=== PATIENT | male | born 1965 | race Caucasian/White ===

== ENCOUNTER 2017-07-28 11:03 | Inpatient (IN) | payer OTHER ==
[2017-07-28 11:31] VITALS: BMI 20.1
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
[2017-07-28] MEDS ORDERED: hydrOXYzine PAMOATE 25 MG CAPSULE (FP) PO PRN (12:58)
[2017-07-28] MEDS ORDERED: MAGNESIUM HYDROX 2400MG/30ML ORAL SUSPENSION 30 ML CUP PO PRN (12:58)
[2017-07-28] MEDS ORDERED: LOPERAMIDE HCL 2 MG CAPSULE PO PRN (12:58)
[2017-07-28] MEDS ORDERED: guaiFENesin/D-METHORPHAN HB 10 ML UNIT-DOSE CUPS PO PRN (12:58)
[2017-07-28] MEDS ORDERED: P-EPHED 60MG/TRIPROLIDI 2.5MG TABLET PO PRN (12:58)
[2017-07-28] MEDS ORDERED: ACETAMINOPHEN 325 MG TABLET (FP) PO PRN (12:58)
[2017-07-28] MEDS ORDERED: MAGNESIUM CITRATE 300 ML BOTTLE PO PRN (12:58)
[2017-07-28] MEDS ORDERED: MENTHOL/PHENOL 1 EACH UD MM PRN (12:58)
[2017-07-28] MEDS ORDERED: MAG HYDROX/AL HYDROX/SIMETH 30 ML UNIT-DOSE CUP PO PRN (12:58)
[2017-07-28] MEDS ORDERED: IBUPROFEN 400 MG TABLET (FP) PO PRN (12:58)
--- NOTE | 2017-07-28 13:43 | CONSULT ---
[facility] Psychiatric Consult - Data Date of interview: 07/28/17 Admission source: [facility] Identifying data: This is 52 years old male with no psychiatricv hospitalization history intoxicated with: Cocain, Alcohol, Cannabis, Opioids, Methadone and PCP Substance Abuse History: Urine Drug Screen Results: THC-Marijuana, OPI-Opiates, MTD-Methadone. Smoking history: Never smoked. Aproximately how many cigarettes per day: 5. Cigars Per Day: 0. Hx Chewing Tobacco Use: No. Initiated information on smoking cessation: Yes. 'Breaking Loose' booklet given : 07/28/17. - Substance & Tx. History. Hx Alcohol Use: Yes. Hx Substance Use : Yes. Substance Use Type: Alcohol, Cocaine, Marijuana. Hx Substance Use Treatment: Yes ([facility] 01/24 ) Medical History: Syncope history Psychiatric History: Patioent reports history of anxiety, reports no medications taking prior to admission Physical/Sexual Abuse/Trauma History: Denies Additional Comment: Urine Drug Screen Results: THC-Marijuana, OPI-Opiates, MTD- Methadone Mental Status Exam - Mental Status Exam Alert and Oriented to: Person Cognitive Function: Fair Patient Appearance: Well Groomed Mood: Apprehensive Affect: Mood Congruent Patient Behavior: Cooperative Speech Pattern: Appropriate Voice Loudness: Normal Thought Process: Goal Oriented Thought Disorder: Being Controlled Hallucinations: Denies Suicidal Ideation: Denies Homicidal Ideation: Denies Insight/Judgement: Fair Sleep: Difficulty falling asleep Appetite: Weight loss Muscle strength/Tone: Normal Gait/Station: Normal Additional Comments: Observation. Detox Unit Care Protocol Psychiatric Findings - Problem List ([place] 1, 2,3) (1) Cannabis dependence Current Visit: Yes Status: Acute (2) Cocaine dependence Current Visit: Yes Status: Acute (3) Nicotine dependence Current Visit: Yes Status: Acute (4) Opioid dependence with withdrawal Current Visit: Yes Status: Acute (5) PCP (phencyclidine) abuse Current Visit: Yes Status: Acute (6) Drug-induced mood disorder Current Visit: Yes Status: Acute - Initial Treatment Plan Initial Treatment Plan: Observation. Detox Unit Care Protocol
[2017-07-28] MEDS ORDERED: METHADONE HCL 10 MG TABLET (FOR DETOX USE ONLY) PO ONE ×2 (14:31→23:00)
--- NOTE | 2017-07-28 14:58 | EKG ---
Test Reason : Blood Pressure : / mmHG Vent. Rate : 074 BPM Atrial Rate : 074 BPM P-R Int : 146 ms QRS Dur : 080 ms QT Int : 370 ms P-R-T Axes : 082 070 065 degrees QTc Int : 410 ms NORMAL SINUS RHYTHM NORMAL ECG NO PREVIOUS ECGS AVAILABLE Confirmed by MANUELITO ENGLE, DICKSON ([id number]) on 07/28/2017 2:57:40 PM Referred By: Confirmed By:DICKSON BILLINGS MD
[2017-07-28 15:01] LABS: HIV 1 & 2 AB NEGATIVE; HIV 1 AGp24 NEGATIVE
[2017-07-28 18:12] LABS: URINE APPEARANCE CLOUDY; URINE BILIRUBIN NEGATIVE (NEGATIVE); URINE BLOOD NEGATIVE (NEGATIVE); URINE COLOR AMBER; URINE GLUCOSE (UA) NEGATIVE (NEGATIVE); URINE KETONE NEGATIVE (NEGATIVE); URINE NITRITE NEGATIVE (NEGATIVE); URINE PROTEIN NEGATIVE (NEGATIVE); URINE UROBILINOGEN NEGATIVE mg/dL (0.2-1.0)
[2017-07-28 21:02] LABS: URINE LEUK ESTERASE TRACE (NEGATIVE)
[2017-07-28 21:37] LABS: URINE BACTERIA FEW /hpf (NEGATIVE); URINE WBC 20-40 (3-5)
[2017-07-28 21:38] LABS: CALCIUM OXALATE CRYSTALS MODERATE /hpf (NONE SEEN)
[2017-07-28] MEDS: THIAMINE HCL 100 MG TABLET (FP) PO SCH (22:48)
[2017-07-28] MEDS: diazePAM 5 MG TABLET PO PRN (22:49)
[2017-07-29 09:43] LABS: MCHC 33.7 g/dl (32.0-35.9); MEAN CELL VOLUME 97.8 fl (80-96); MEAN PLT VOLUME 8.9 fl (7.5-11.1); PLATELET COUNT 287 K/MM3 (134-434); RDW 13.6 % (11.9-15.9); WHITE BLOOD COUNT 6.6 K/mm3 (4.0-10.0)
[2017-07-29] MEDS ORDERED: METHADONE HCL 10 MG TABLET (FOR DETOX USE ONLY) PO ONE (10:00)
[2017-07-29] MEDS: PRENATAL VITAMINS W/ FOLIC ACID TABLET (FP) PO SCH (10:21)
[2017-07-29 10:48] LABS: ALBUMIN 3.5 g/dl (3.4-5.0); ALK PHOS 114 U/L (45-117); ANION GAP 7 (8-16); BILIRUBIN,TOTAL 0.3 mg/dL (0.2-1.0); CALCIUM 8.7 mg/dL (8.5-10.1); CO2 29 mmol/L (21-32); CREATININE 0.8 mg/dL (0.7-1.3); GLUCOSE,RANDOM 127 mg/dL (74-106); SGOT/AST 23 U/L (15-37); SGPT/ALT 33 U/L (12-78); TOT PROT 6.4 g/dl (6.4-8.2)
--- NOTE | 2017-07-29 12:28 | PN ---
BHS COWS - Scale Resting Pulse: 0= [place] 80 or Below Sweatin=Flushed/Facial Moisture Restless Observation: 1= Difficult to Sit Still Pupil Size: 0= Normal to Room Light Bone or Joint Aches: 1= Mild Discomfort Runny Nose/ Eye Tearin= Runny Nose/Eyes GI Upset > 30mins: 2= Nausea/Diarrhea Tremor Observation of Outstretched Hands: 2= Slight Tremor Visible Yawning Observation: 1= 1-2x During Session Anxiety or Irritability: 2=Irritable/Anxious Goose Flesh Skin: 0=Smooth Skin COWS Score: 13 BHS Progress Note (SOAP) Subjective: Sweating,body aches,anxiety,interrupted sleep. Objective: 07/29/17 12:27 Vital Signs - 8 hr 07/29/17 07/29/17 06:27 11:11 Temperature 97.9 F 97.5 F L Pulse Rate 54 L 68 Respiratory 16 16 Rate Blood Pressure 117/70 111/48 Laboratory Tests 07/28/17 07/28/17 07/29/17 13:40 14:50 06:00 WBC 6.6 RBC 3.49 L Hgb 11.5 L Hct 34.2 L MCV 97.8 H MCH 33.0 MCHC 33.7 RDW 13.6 Plt Count 287 MPV 8.9 Sodium Potassium Chloride Carbon Dioxide Anion Gap BUN Creatinine Creat Clearance w eGFR Random Glucose Calcium Total Bilirubin AST ALT Alkaline Phosphatase Total Protein Albumin Urine Color Stacey Urine Appearance Cloudy Urine pH 6.0 Ur Specific [place] 1.015 Urine Protein Negative Urine Glucose (UA) Negative Urine Ketones Negative Urine Blood Negative Urine Nitrite Negative Urine Bilirubin Negative Urine Urobilinogen Negative Ur Leukocyte Esterase Trace H Urine RBC 10-20 Urine WBC 20-40 Calcium Oxalate Crystal Moderate Urine Bacteria Few RPR Titer HIV 1&2 Antibody Screen Negative HIV P24 Antigen Negative 07/29/17 07/29/17 06:00 06:00 WBC RBC Hgb Hct MCV MCH MCHC RDW Plt Count MPV Sodium 141 Potassium 4.1 Chloride 105 Carbon Dioxide 29 Anion Gap 7 L BUN 14 Creatinine 0.8 Creat Clearance w eGFR > 60 Random Glucose 127 H Calcium 8.7 Total Bilirubin 0.3 AST 23 ALT 33 Alkaline Phosphatase 114 Total Protein 6.4 Albumin 3.5 Urine Color Urine Appearance Urine pH Ur Specific [place] Urine Protein Urine Glucose (UA) Urine Ketones Urine Blood Urine Nitrite Urine Bilirubin Urine Urobilinogen Ur Leukocyte Esterase Urine RBC Urine WBC Calcium Oxalate Crystal Urine Bacteria RPR Titer Nonreactive HIV 1&2 Antibody Screen HIV P24 Antigen labs noted Assessment: 07/29/17 12:28 Withdrawal sx. Plan: Continue detox
[2017-07-29 13:40] LABS: SICKLE CELL SCREEN NEGATIVE (NEGATIVE)
[2017-07-29] MEDS: diazePAM 5 MG TABLET PO PRN (22:39)
[2017-07-29] MEDS: THIAMINE HCL 100 MG TABLET (FP) PO SCH (22:39)
[2017-07-30 09:06] LABS: URINE APPEARANCE CLEAR; URINE BILIRUBIN NEGATIVE (NEGATIVE); URINE BLOOD NEGATIVE (NEGATIVE); URINE COLOR STRAW; URINE GLUCOSE (UA) NEGATIVE (NEGATIVE); URINE KETONE NEGATIVE (NEGATIVE); URINE NITRITE NEGATIVE (NEGATIVE); URINE PROTEIN NEGATIVE (NEGATIVE); URINE UROBILINOGEN NEGATIVE mg/dL (0.2-1.0)
[2017-07-30] MEDS ORDERED: METHADONE HCL 5 MG TABLET (FOR DETOX USE ONLY) PO ONE (10:00)
[2017-07-30] MEDS: PRENATAL VITAMINS W/ FOLIC ACID TABLET (FP) PO SCH (11:00)
[2017-07-30] MEDS: diazePAM 5 MG TABLET PO PRN ×2 (11:01→22:14)
[2017-07-30 11:25] LABS: URINE LEUK ESTERASE TRACE (NEGATIVE)
[2017-07-30] MEDS: THIAMINE HCL 100 MG TABLET (FP) PO SCH (22:13)
[2017-07-30] MEDS: diphenhydrAMINE HCL 50 MG CAPSULE PO PRN (22:15)
[2017-07-31] MEDS ORDERED: METHADONE HCL 5 MG TABLET (FOR DETOX USE ONLY) PO ONE (10:00)
[2017-07-31] MEDS: PRENATAL VITAMINS W/ FOLIC ACID TABLET (FP) PO SCH (10:12)
[2017-07-31] MEDS: diazePAM 5 MG TABLET PO PRN (10:12)
--- NOTE | 2017-07-31 15:00 | PN ---
S COWS - Scale Resting Pulse: 0= [place] 80 or Below Sweatin=Flushed/Facial Moisture Restless Observation: 3= Extraneous Movement Pupil Size: 0= Normal to Room Light Bone or Joint Aches: 2= Severe Diffuse Aches Runny Nose/ Eye Tearin= Runny Nose/Eyes GI Upset > 30mins: 3= Vomiting/Diarrhea Tremor Observation of Outstretched Hands: 2= Slight Tremor Visible Yawning Observation: 0= None Anxiety or Irritability: 2=Irritable/Anxious Goose Flesh Skin: 0=Smooth Skin COWS Score: 16 BHS Progress Note (SOAP) Subjective: Tremor, chills, sweating, headache Objective: 07/31/17 14:57 Last Vital Signs Temp Pulse Resp BP Pulse Ox 97.5 F L 80 18 91/63 07/31/17 13:08 07/31/17 13:08 07/31/17 13:08 07/31/17 13:08 Noted with hypotension (b/p 91/63) Laboratory Tests 07/28/17 07/28/17 07/29/17 13:40 14:50 06:00 WBC 6.6 RBC 3.49 L Hgb 11.5 L Hct 34.2 L MCV 97.8 H MCH 33.0 MCHC 33.7 RDW 13.6 Plt Count 287 MPV 8.9 Sickle Cell Screen Negative Sodium Potassium Chloride Carbon Dioxide Anion Gap BUN Creatinine Creat Clearance w eGFR POC Glucometer Random Glucose Calcium Total Bilirubin AST ALT Alkaline Phosphatase Total Protein Albumin Urine Color Stacey Urine Appearance Cloudy Urine pH 6.0 Ur Specific [place] 1.015 Urine Protein Negative Urine Glucose (UA) Negative Urine Ketones Negative Urine Blood Negative Urine Nitrite Negative Urine Bilirubin Negative Urine Urobilinogen Negative Ur Leukocyte Esterase Trace H Urine RBC 10-20 Urine WBC 20-40 Calcium Oxalate Crystal Moderate Urine Bacteria Few RPR Titer HIV 1&2 Antibody Screen Negative HIV P24 Antigen Negative 07/29/17 07/29/17 07/30/17 06:00 06:00 05:52 WBC RBC Hgb Hct MCV MCH MCHC RDW Plt Count MPV Sickle Cell Screen Sodium 141 Potassium 4.1 Chloride 105 Carbon Dioxide 29 Anion Gap 7 L BUN 14 Creatinine 0.8 Creat Clearance w eGFR > 60 POC Glucometer 105 Random Glucose 127 H Calcium 8.7 Total Bilirubin 0.3 AST 23 ALT 33 Alkaline Phosphatase 114 Total Protein 6.4 Albumin 3.5 Urine Color Urine Appearance Urine pH Ur Specific [place] Urine Protein Urine Glucose (UA) Urine Ketones Urine Blood Urine Nitrite Urine Bilirubin Urine Urobilinogen Ur Leukocyte Esterase Urine RBC Urine WBC Calcium Oxalate Crystal Urine Bacteria RPR Titer Nonreactive HIV 1&2 Antibody Screen HIV P24 Antigen 07/30/17 07:50 WBC RBC Hgb Hct MCV MCH MCHC RDW Plt Count MPV Sickle Cell Screen Sodium Potassium Chloride Carbon Dioxide Anion Gap BUN Creatinine Creat Clearance w eGFR POC Glucometer Random Glucose Calcium Total Bilirubin AST ALT Alkaline Phosphatase Total Protein Albumin Urine Color Straw Urine Appearance Clear Urine pH 6.0 Ur Specific [place] 1.015 Urine Protein Negative Urine Glucose (UA) Negative Urine Ketones Negative Urine Blood Negative Urine Nitrite Negative Urine Bilirubin Negative Urine Urobilinogen Negative Ur Leukocyte Esterase Trace H Urine RBC Urine WBC Calcium Oxalate Crystal Urine Bacteria RPR Titer HIV 1&2 Antibody Screen HIV P24 Antigen Labs noted Assessment: 07/31/17 14:58 Withdrawal symptoms Noted with hypotension Plan: Continue detox Hypotension: asymptomatic, encouraged to drink lots of water (water pitcher ordered)
[2017-07-31] MEDS: diphenhydrAMINE HCL 50 MG CAPSULE PO PRN (22:07)
[2017-07-31] MEDS: THIAMINE HCL 100 MG TABLET (FP) PO SCH (22:07)
[2017-08-01] MEDS ORDERED: METHADONE HCL 10 MG TABLET (FOR DETOX USE ONLY) PO ONE (10:00)
[2017-08-01] MEDS: PRENATAL VITAMINS W/ FOLIC ACID TABLET (FP) PO SCH (10:12)
--- NOTE | 2017-08-01 11:22 | PN ---
BHS Progress Note (SOAP) Subjective: DECREASED ANXIETY,SWEATS,TREMORS, ALERT O X 3. PT DESIRES TO GO TO REHAB AFTER DETOX. Objective: 08/01/17 11:21 Vital Signs Temperature 99.7 F H 08/01/17 10:21 Pulse Rate 71 08/01/17 10:21 Respiratory Rate 20 08/01/17 10:21 Blood Pressure 128/72 08/01/17 10:21 O2 Sat by Pulse Oximetry (%) Laboratory Last Values WBC 6.6 K/mm3 (4.0-10.0) 07/29/17 06:00 RBC 3.49 M/mm3 (4.00-5.60) L 07/29/17 06:00 Hgb 11.5 GM/dL (11.7-16.9) L 07/29/17 06:00 Hct 34.2 % (35.4-49) L 07/29/17 06:00 MCV 97.8 fl (80-96) H 07/29/17 06:00 MCH 33.0 pg (25.7-33.7) 07/29/17 06:00 MCHC 33.7 g/dl (32.0-35.9) 07/29/17 06:00 RDW 13.6 % (11.9-15.9) 07/29/17 06:00 Plt Count 287 K/MM3 (134-434) 07/29/17 06:00 MPV 8.9 fl (7.5-11.1) 07/29/17 06:00 Sickle Cell Screen Negative (NEGATIVE) 07/29/17 06:00 Sodium 141 mmol/L (136-145) 07/29/17 06:00 Potassium 4.1 mmol/L (3.5-5.1) 07/29/17 06:00 Chloride 105 mmol/L (98-107) 07/29/17 06:00 Carbon Dioxide 29 mmol/L (21-32) 07/29/17 06:00 Anion Gap 7 (8-16) L 07/29/17 06:00 BUN 14 mg/dL (7-18) 07/29/17 06:00 Creatinine 0.8 mg/dL (0.7-1.3) 07/29/17 06:00 Creat Clearance w eGFR > 60 (>60) 07/29/17 06:00 POC Glucometer 105 UNITS (()) 07/30/17 05:52 Random Glucose 127 mg/dL (74-106) H 07/29/17 06:00 Calcium 8.7 mg/dL (8.5-10.1) 07/29/17 06:00 Total Bilirubin 0.3 mg/dL (0.2-1.0) 07/29/17 06:00 AST 23 U/L (15-37) 07/29/17 06:00 ALT 33 U/L (12-78) 07/29/17 06:00 Alkaline Phosphatase 114 U/L (45-117) 07/29/17 06:00 Total Protein 6.4 g/dl (6.4-8.2) 07/29/17 06:00 Albumin 3.5 g/dl (3.4-5.0) 07/29/17 06:00 Urine Color Straw 07/30/17 07:50 Urine Appearance Clear 07/30/17 07:50 Urine pH 6.0 (5.0-8.0) 07/30/17 07:50 Ur Specific [place] 1.015 (1.005-1.025) 07/30/17 07:50 Urine Protein Negative (NEGATIVE) 07/30/17 07:50 Urine Glucose (UA) Negative (NEGATIVE) 07/30/17 07:50 Urine Ketones Negative (NEGATIVE) 07/30/17 07:50 Urine Blood Negative (NEGATIVE) 07/30/17 07:50 Urine Nitrite Negative (NEGATIVE) 07/30/17 07:50 Urine Bilirubin Negative (NEGATIVE) 07/30/17 07:50 Urine Urobilinogen Negative mg/dL (0.2-1.0) 07/30/17 07:50 Ur Leukocyte Esterase Trace (NEGATIVE) H 07/30/17 07:50 Urine RBC 10-20 /hpf (0-3) 07/28/17 14:50 Urine WBC 20-40 (3-5) 07/28/17 14:50 Calcium Oxalate Crystal Moderate /hpf (NONE SEEN) 07/28/17 14:50 Urine Bacteria Few /hpf (NEGATIVE) 07/28/17 14:50 RPR Titer Nonreactive (NONREACTIVE) 07/29/17 06:00 HIV 1&2 Antibody Screen Negative 07/28/17 13:40 HIV P24 Antigen Negative 07/28/17 13:40 Assessment: 08/01/17 11:23 DECREASED WITHDRAWAL SX Plan: CONTINUE DETOX UC TODAY
[2017-08-01] MEDS ORDERED: FERROUS SO4 325 MG TABLET (FP) PO SCH (11:45)
[2017-08-01] MEDS: diphenhydrAMINE HCL 50 MG CAPSULE PO PRN (22:13)
[2017-08-01] MEDS: THIAMINE HCL 100 MG TABLET (FP) PO SCH (22:13)
[2017-08-02] MEDS ORDERED: METHADONE HCL 5 MG TABLET (FOR DETOX USE ONLY) PO ONE (06:00)
[2017-08-02 09:32] VITALS: BP 123/76; PULSE 82; TEMP 99.1
[2017-08-02] MEDS: PRENATAL VITAMINS W/ FOLIC ACID TABLET (FP) PO SCH (10:15)
--- NOTE | 2017-08-02 10:31 | DS ---
[facility] Detox Discharge Summary Admission Date: 07/28/17 Discharge Date: 08/02/17 - History Present History: Opioid Dependence Additional Comments: DETOX COMPLETED.ALERT O X 3. NAD. PT IS GOING TO REHAB TODAY. PT WILL FOLLOW UP WITH PCP AT [facility] FOR [facility]ICAL MANAGEMENT NEEDED. Pertinent Past History: HX FRACTURE OF ZYGOMATIC ARCH- TREATED 6 WEEKS AGO PER H/P - Physical Exam Results Vital Signs: Vital Signs Temperature 99.1 F 08/02/17 09:32 Pulse Rate 82 08/02/17 09:32 Respiratory Rate 18 08/02/17 09:32 Blood Pressure 123/76 08/02/17 09:32 O2 Sat by Pulse Oximetry (%) Pertinent Admission Physical Exam Findings: WITHDRAWAL SX Laboratory Last Values WBC 6.6 K/mm3 (4.0-10.0) 07/29/17 06:00 RBC 3.49 M/mm3 (4.00-5.60) L 07/29/17 06:00 Hgb 11.5 GM/dL (11.7-16.9) L 07/29/17 06:00 Hct 34.2 % (35.4-49) L 07/29/17 06:00 MCV 97.8 fl (80-96) H 07/29/17 06:00 MCH 33.0 pg (25.7-33.7) 07/29/17 06:00 MCHC 33.7 g/dl (32.0-35.9) 07/29/17 06:00 RDW 13.6 % (11.9-15.9) 07/29/17 06:00 Plt Count 287 K/MM3 (134-434) 07/29/17 06:00 MPV 8.9 fl (7.5-11.1) 07/29/17 06:00 Sickle Cell Screen Negative (NEGATIVE) 07/29/17 06:00 Sodium 141 mmol/L (136-145) 07/29/17 06:00 Potassium 4.1 mmol/L (3.5-5.1) 07/29/17 06:00 Chloride 105 mmol/L (98-107) 07/29/17 06:00 Carbon Dioxide 29 mmol/L (21-32) 07/29/17 06:00 Anion Gap 7 (8-16) L 07/29/17 06:00 BUN 14 mg/dL (7-18) 07/29/17 06:00 Creatinine 0.8 mg/dL (0.7-1.3) 07/29/17 06:00 Creat Clearance w eGFR > 60 (>60) 07/29/17 06:00 POC Glucometer 101 UNITS (()) 08/02/17 06:34 Random Glucose 127 mg/dL (74-106) H 07/29/17 06:00 Calcium 8.7 mg/dL (8.5-10.1) 07/29/17 06:00 Total Bilirubin 0.3 mg/dL (0.2-1.0) 07/29/17 06:00 AST 23 U/L (15-37) 07/29/17 06:00 ALT 33 U/L (12-78) 07/29/17 06:00 Alkaline Phosphatase 114 U/L (45-117) 07/29/17 06:00 Total Protein 6.4 g/dl (6.4-8.2) 07/29/17 06:00 Albumin 3.5 g/dl (3.4-5.0) 07/29/17 06:00 Urine Color Straw 07/30/17 07:50 Urine Appearance Clear 07/30/17 07:50 Urine pH 6.0 (5.0-8.0) 07/30/17 07:50 Ur Specific [place] 1.015 (1.005-1.025) 07/30/17 07:50 Urine Protein Negative (NEGATIVE) 07/30/17 07:50 Urine Glucose (UA) Negative (NEGATIVE) 07/30/17 07:50 Urine Ketones Negative (NEGATIVE) 07/30/17 07:50 Urine Blood Negative (NEGATIVE) 07/30/17 07:50 Urine Nitrite Negative (NEGATIVE) 07/30/17 07:50 Urine Bilirubin Negative (NEGATIVE) 07/30/17 07:50 Urine Urobilinogen Negative mg/dL (0.2-1.0) 07/30/17 07:50 Ur Leukocyte Esterase Trace (NEGATIVE) H 07/30/17 07:50 Urine RBC 10-20 /hpf (0-3) 07/28/17 14:50 Urine WBC 20-40 (3-5) 07/28/17 14:50 Calcium Oxalate Crystal Moderate /hpf (NONE SEEN) 07/28/17 14:50 Urine Bacteria Few /hpf (NEGATIVE) 07/28/17 14:50 RPR Titer Nonreactive (NONREACTIVE) 07/29/17 06:00 HIV 1&2 Antibody Screen Negative 07/28/17 13:40 HIV P24 Antigen Negative 07/28/17 13:40 Microbiology 08/01/17 11:50 Urine - Urine Clean Catch Urine Culture - Final NO GROWTH OBTAINED - Treatment Hospital Course: Detox Protocol Followed, Detoxed Safely, Responded well, Discharged Condition Good, Rehab Referral Accepted Patient has Accepted a Rehab Referral to: [address] [place] [address] - Medication Discharge Medications: Ambulatory Orders Unobtainable [Unobtainable] 07/28/17 - Diagnosis (1) Nicotine dependence Status: Acute Qualifiers: Nicotine product type: cigarettes Substance use status: in withdrawal Qualified Code(s): F17.213 - Nicotine dependence, cigarettes, with withdrawal; F17.213 - Nicotine dependence, cigarettes, with withdrawal (2) Opioid dependence with withdrawal Status: Acute (3) Cannabis dependence Status: Acute (4) Cocaine dependence Status: Acute Qualifiers: Substance use status: uncomplicated Qualified Code(s): F14.20 - Cocaine dependence, uncomplicated; F14.20 - Cocaine dependence, uncomplicated; F14.20 - Cocaine dependence, uncomplicated (5) PCP (phencyclidine) abuse Status: Acute - AMA Did Patient Leave Against Medical Advice: No
== END 2017-08-02 12:25 | disposition other institution (70) | DRG 773 ==
LOC: YASAS 11:03 → Y3N 13:04
PROVIDERS: ADMIT Internal Medicine; ATTEND Internal Medicine
PROC: HZ2ZZZZ Detoxification Services for Substance Abuse Treatment (ICD-10-PCS; principal; 2017-07-28)
DX: F11.23 Opioid dependence with withdrawal (principal); F14.20 Cocaine dependence, uncomplicated; F12.20 Cannabis dependence, uncomplicated; F16.10 Hallucinogen abuse, uncomplicated; F17.213 Nicotine dependence, cigarettes, with withdrawal; F19.24 Other psychoactive substance dependence with psychoactive substance-induced mood disorder; I95.9 Hypotension, unspecified; Z91.048 Other nonmedicinal substance allergy status; Z87.898 Personal history of other specified conditions; Z86.79 Personal history of other diseases of the circulatory system
CPT/HCPCS: 36415; 80053; 81003; 81015; 85027; 85660; 86593; 87086; 87389; 93005; 93010

== ENCOUNTER 2017-08-02 12:39 | Inpatient (IN) | payer OTHER ==
[2017-08-02] MEDS ORDERED: MENTHOL/PHENOL 1 EACH UD MM PRN (14:35)
[2017-08-02] MEDS ORDERED: MAGNESIUM HYDROX 2400MG/30ML ORAL SUSPENSION 30 ML CUP PO PRN (14:35)
[2017-08-02] MEDS ORDERED: hydrOXYzine PAMOATE 50 MG CAPSULE (FP) PO PRN (14:35)
[2017-08-02] MEDS ORDERED: MAGNESIUM CITRATE 300 ML BOTTLE PO PRN (14:35)
[2017-08-02] MEDS ORDERED: IBUPROFEN 400 MG TABLET (FP) PO PRN (14:35)
[2017-08-02] MEDS ORDERED: LOPERAMIDE HCL 2 MG CAPSULE PO PRN (14:35)
[2017-08-02] MEDS ORDERED: MAG HYDROX/AL HYDROX/SIMETH 30 ML UNIT-DOSE CUP PO PRN (14:35)
[2017-08-02] MEDS ORDERED: diphenhydrAMINE HCL 50 MG CAPSULE PO PRN (14:35)
[2017-08-02] MEDS ORDERED: ACETAMINOPHEN 325 MG TABLET (FP) PO PRN (14:35)
[2017-08-02] MEDS ORDERED: guaiFENesin/D-METHORPHAN HB 10 ML UNIT-DOSE CUPS PO PRN (14:35)
[2017-08-02] MEDS ORDERED: P-EPHED 60MG/TRIPROLIDI 2.5MG TABLET PO PRN (14:35)
--- NOTE | 2017-08-02 15:21 | HP ---
[facility] Rehab Assess/Revision - Admission History Admitted to Rehab from: [facility] Date of Admission to Rehab: 08/02/17 - Vital signs Vital Signs: Vital Signs Period Temp Pulse Resp BP Sys/Garcia Pulse Ox Last 24 Hr 74 20 123/97 - Findings Detox History & Physical reviewed: Yes Concur with findings: Yes Comments/Additional Findings: PT COMPLETED DETOX TODAY AND WENT TO REH[facility] IN STABLE CONDITION.
[2017-08-02] MEDS: THIAMINE HCL 100 MG TABLET (FP) PO SCH (21:28)
[2017-08-03 09:53] LABS: EOSINOPHIL 2.5 % (0-4.5); MCH 32.5 pg (25.7-33.7); MCHC 33.4 g/dl (32.0-35.9); MEAN CELL VOLUME 97.4 fl (80-96); MEAN PLT VOLUME 8.6 fl (7.5-11.1); NEUTROPHILS 61.2 % (42.8-82.8); PLATELET COUNT 315 K/MM3 (134-434); RDW 14.2 % (11.9-15.9); WHITE BLOOD COUNT 8.6 K/mm3 (4.0-10.0)
[2017-08-03] MEDS: PRENATAL VITAMINS W/ FOLIC ACID TABLET (FP) PO SCH (10:23)
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
[2017-08-03] MEDS ORDERED: FLU VACCINE QUAD 60 MCG/0.5 ML (MDV 17-18) IM ONE (12:00)
[2017-08-03] MEDS: THIAMINE HCL 100 MG TABLET (FP) PO SCH (21:41)
[2017-08-03] MEDS ORDERED: MIRTAZAPINE 15 MG TABLET (FP) PO SCH (22:00)
[2017-08-04 07:10] VITALS: BP 117/67; PULSE 72; TEMP 98.2
[2017-08-04] MEDS: PRENATAL VITAMINS W/ FOLIC ACID TABLET (FP) PO SCH (10:14)
--- NOTE | 2017-08-04 11:57 | PN ---
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
== END 2017-08-04 10:50 | disposition left against medical advice (07) | DRG 770 ==
LOC: YASAS 12:39 → Y5N 12:40
PROVIDERS: ADMIT Psychiatry & Neurology Psychiatry; ATTEND Psychiatry & Neurology Psychiatry
PROC: HZ42ZZZ Group Counseling for Substance Abuse Treatment, Cognitive-Behavioral (ICD-10-PCS; principal; 2017-08-02)
DX: F11.20 Opioid dependence, uncomplicated (principal); F10.20 Alcohol dependence, uncomplicated; F14.20 Cocaine dependence, uncomplicated; F12.20 Cannabis dependence, uncomplicated; F16.10 Hallucinogen abuse, uncomplicated; F17.213 Nicotine dependence, cigarettes, with withdrawal; F19.24 Other psychoactive substance dependence with psychoactive substance-induced mood disorder; F43.10 Post-traumatic stress disorder, unspecified
CPT/HCPCS: 36415; 85025; 90688; G0008

== ENCOUNTER 2018-07-10 16:10 | Inpatient (IN) | payer OTHER ==
[2018-07-10 18:02] VITALS: BMI 20.1
--- NOTE | 2018-07-10 20:49 | HP ---
COWS - Scale Resting Pulse: 0= [place] 80 or Below Sweatin= Chills/Flushing Restless Observation: 5= Unable to Sit Still Pupil Size: 1= Pupils >than Normal Bone or Joint Aches: 4=Acute Joint/Muscle Pain Runny Nose/ Eye Tearin= Nasal Congestion GI Upset > 30mins: 0= None Tremor Observation: 1= Tremor Spencer, Not Seen Yawning Observation: 1= 1-2x During Session Anxiety or Irritability: 4=Extreme Anxiety Goose Flesh Skin: 0=Smooth Skin COWS Score: 18 CIWA Score - CIWA Score Nausea/Vomitin-No Nausea/No Vomiting Muscle Tremors: 1-None Visible, but Spencer Anxiety: 4-Mod. Anxious/Guarded Agitation: 4-Moderately Restless Paroxysmal Sweats: 3 Orientation: 0-Oriented Tacttile Disturbances: 0-None Auditory Disturbances: 2-Mild Harshness/Frighten Visual Disturbances: 2-Mild Sensitivity Headache: 3-Moderate CIWA-Ar Total Score: 19 Admission [facility] Chief Complaint: SEEKING DETOX FOR C/O WITHDRAWAL SX'S AND HEROIN AND ETOH DEPENDENCE. Allergies/Adverse Reactions: Allergies Allergy/AdvReac Type Severity Reaction Status Date / Time tomato Allergy Severe Verified 07/10/18 19:15 No Known Drug Allergies Allergy Verified 07/10/18 19:15 History of Present Illness: 53 Y.O. MALE WITH HEROIN AND ALCOHOL DEPENDENCE HERE FOR DETOX. CLIENT IS KNOWN TO THIS PROGRAM. LAST HERE 07/2017 WHERE HE COMPLETED DETOX AND ATTEMPTED REHAB. HE AMA AFTER 2 DAYS FOR UNKNOWN REASONS. HE IS SELF REFERRED. HE REPORTS FALLING A FEW WEEKS AGO SUSTAINING A LACERATION TO HIS HEAD THAT REQUIRED SUTURES AND A HOSPITAL STAY AT [place]. HE REPORTS HE WAS THERE FOR ABOUT FOUR DAYS BUT NOT SURE. HIS SUTURES HAS SINCE BEEN REMOVED. HE CURRENTLY HAS A HEALING LACERATION TO THE LEFT SIDE OF HIS SCALP APPROX 15 CM. AND ALSO A 7 CM HEALING LAC TO HIS OCCIPITAL. HE REPORTS DRINKING APPROX 2 PINTS DAILY. DENIES ANY SIGNIFICANT PERIOD OF CLEAN TIME. DENIES HX/O SEIZURES, BLACKOUTS, PAST /PRESENT SI/HI,. HE DOES REPORT HX/O DRUG OVERDOSE X2 AND DT'S. DENIES PMHX BUT DOES REPORTS A PSYCH HX/ O DEPRESSION, ANXIETY AND PTSD. Exam Limitations: No Limitations - Ebola screening Have you traveled outside of the country in the last 21 days: No (N) Have you had contact with anyone from an Ebola affected area: No Have you been sick,other than usual withdrawal symptoms: No Do you have a fever: No - Review of Systems Constitutional: Chills, Loss of Appetite, Malaise, Night Sweats, Changes in sleep, Unintentional Wgt. Loss EENT: reports: Nose Congestion Respiratory: reports: No Symptoms reported Cardiac: reports: No Symptoms Reported GI: reports: Poor Appetite : reports: No Symptoms Reported Musculoskeletal: reports: Back Pain Integumentary: reports: No Symptoms Reported Neuro: reports: No Symptoms reported Endocrine: reports: No Symptoms Reported Hematology: reports: No Symptoms Reported Psychiatric: reports: Anxious, Depressed Other Systems: Reviewed and Negative Patient History - Patient Medical History Hx Anemia: No Hx Asthma: No Hx Chronic Obstructive Pulmonary Disease (COPD): No Hx Cancer: No Hx Cardiac Disorders: No Hx Congestive Heart Failure: No Hx Hypertension: No Hx Hypercholesterolemia: No Hx Pacemaker: No HX Cerebrovascular Accident: No Hx Seizures: No Hx Dementia: No Hx Diabetes: No Hx Gastrointestinal Disorders: No Hx Liver Disease: No Hx Genitourinary Disorders: No Hx Sexually Transmitted Disorders: No Hx Renal Disease (ESRD): No Hx Thyroid Disease: No Hx Human Immunodeficiency Virus (HIV): No Hx Hepatitis C: No Hx Depression: Yes Hx Suicide Attempt: No Hx Bipolar Disorder: No Hx Schizophrenia: No Other Medical History: ANXIETY/PTSD - Patient Surgical History Past Surgical History: No Hx Neurologic Surgery: No Hx Cataract Extraction: No Hx Cardiac Surgery: No Hx Lung Surgery: No Hx Breast Surgery: No Hx Breast Biopsy: No Hx Abdominal Surgery: No Hx Appendectomy: No Hx Cholecystectomy: No Hx Genitourinary Surgery: No Hx Section: No Hx Orthopedic Surgery: No Other Surgical History: RENAL CALCULI Anesthesia Reaction: No - PPD History Previous Implant?: Yes Documented Results: Negative w/proof Implanted On Prior R Admission?: Yes Date: 07/30/17 Results: 0mm PPD to be Administered?: No - Smoking Cessation Smoking history: Current every day smoker Have you smoked in the past 12 months: Yes Aproximately how many cigarettes per day: 10 Cigars Per Day: 0 Hx Chewing Tobacco Use: No Initiated information on smoking cessation: Yes 'Breaking Loose' booklet given: 07/10/18 - Substance & Tx. History Hx Alcohol Use: Yes Hx Substance Use: Yes Substance Use Type: Alcohol, Heroin, Marijuana Hx Substance Use Treatment: Yes ([facility]) - Substances Abused Alcohol Route: Oral Frequency: Daily Amount used: LIQUOR- 2 PINTS, Age of first use: 13 Date of Last Use: 07/07/18 Heroin Route: Inhalation Frequency: Daily Amount used: 10 BAGS Age of first use: 13 Date of Last Use: 07/07/18 Marijuana/Hashish Route: Smoking Frequency: Daily Amount used: $40 WORTH Age of first use: 13 Date of Last Use: 07/07/18 Family Disease History - Family Disease History Family Disease History: Other: Father (ALCOHOL,DSA,), Mother (ALCOHOL, DSA) Admission Physical Exam S - Vital Signs Vital Signs: Vital Signs - 24 hr 07/10/18 18:01 Temperature 98.6 F Pulse Rate 69 Respiratory 18 Rate Blood Pressure 115/56 L - Physical General Appearance: Yes: Appropriately Dressed, Thin, Tremorous (felt), Sweating (FLUSHED FAce), Anxious HEENTM: Yes: EOMI, Normocephalic, Normal Voice, JEANNINE, Pharynx Normal, Nasal Congestion, Other (missing teeth healing lac x2 to left scaLP And occipital) Respiratory: Yes: Chest Non-Tender, Lungs Clear, Normal Breath Sounds, No Respiratory Distress, No Accessory Muscle Use Neck: Yes: No masses,lesions,Nodules, Supple, Trachea in good position Breast: Yes: Breast Exam Deferred Cardiology: Yes: Regular Rhythm, Regular Rate, S1, S2 Abdominal: Yes: Normal Bowel Sounds, Non Tender, Flat, Soft Genitourinary: Yes: Within Normal Limits Back: Yes: Normal Inspection Musculoskeletal: Yes: full range of Motion, Gait Steady Extremities: Yes: Normal Capillary Refill, Normal Range of Motion, Non-Tender, Tremors (felt) Neurological: Yes: Fully Oriented, Alert, Motor Strength 5/5, Depressed Affect Integumentary: Yes: Warm, Other (abrasion to forehead with scab healing abrasion with skin discoloration to back) Lymphatic: Yes: Within Normal Limits - Diagnostic (1) Alcohol dependence with uncomplicated withdrawal Current Visit: Yes Status: Acute (2) Depressed affect Current Visit: Yes Status: Acute (3) Cannabis dependence Current Visit: Yes Status: Acute (4) Drug-induced mood disorder Current Visit: Yes Status: Suspected (5) Nicotine dependence Current Visit: Yes Status: Chronic Qualifiers: Nicotine product type: cigarettes Substance use status: in withdrawal Qualified Code(s): F17.213 - Nicotine dependence, cigarettes, with withdrawal (6) Opioid dependence with withdrawal Current Visit: Yes Status: Acute Cleared for Admission [facility] - Detox or Rehab [facility] Level of Care: Medically Managed Detox Regimen/Protocol: Methadone/Librium Claeared for Rehab Admission: No BHS Breath Alcohol Content Breath Alcohol Content: 0 Urine Drug Screen - Results Drug Screen Negative: No Urine Drug Screen Results: THC-Marijuana, OPI-Opiates
[2018-07-10] MEDS ORDERED: ACETAMINOPHEN 325 MG TABLET (FP) PO PRN (21:01)
[2018-07-10] MEDS ORDERED: METHADONE HCL 10 MG TABLET (FOR DETOX USE ONLY) PO ONE ×2 (21:01→23:00)
[2018-07-10] MEDS ORDERED: MENTHOL/PHENOL 1 EACH UD MM PRN (21:01)
[2018-07-10] MEDS ORDERED: LOPERAMIDE HCL 2 MG CAPSULE PO PRN (21:01)
[2018-07-10] MEDS ORDERED: MAG HYDROX/AL HYDROX/SIMETH 30 ML UNIT-DOSE CUP PO PRN (21:01)
[2018-07-10] MEDS ORDERED: P-EPHED 60MG/TRIPROLIDI 2.5MG TABLET PO PRN (21:01)
[2018-07-10] MEDS ORDERED: IBUPROFEN 400 MG TABLET (FP) PO PRN (21:01)
[2018-07-10] MEDS ORDERED: chlordiazePOXIDE HCL 25 MG CAPSULE PO PRN (21:01)
[2018-07-10] MEDS ORDERED: guaiFENesin/D-METHORPHAN HB 10 ML UNIT-DOSE CUPS PO PRN (21:01)
[2018-07-10] MEDS ORDERED: MAGNESIUM HYDROX 2400MG/30ML ORAL SUSPENSION 30 ML CUP PO PRN (21:01)
[2018-07-10] MEDS ORDERED: NICOTINE POLACRILEX 2 MG GUM BUC PRN (21:01)
[2018-07-10] MEDS ORDERED: MAGNESIUM CITRATE 300 ML BOTTLE PO PRN (21:01)
[2018-07-10] MEDS: chlordiazePOXIDE HCL 25 MG CAPSULE PO SCH (22:10)
[2018-07-10] MEDS: THIAMINE HCL 100 MG TABLET (FP) PO SCH (22:10)
[2018-07-11] MEDS: chlordiazePOXIDE HCL 25 MG CAPSULE PO SCH ×4 (05:58→22:03)
[2018-07-11] MEDS ORDERED: METHADONE HCL 10 MG TABLET (FOR DETOX USE ONLY) PO SCH (10:00)
[2018-07-11] MEDS: NICOTINE 14 MG/24 HOURS TOPICAL PATCH TD SCH (10:33)
[2018-07-11] MEDS: PRENATAL VITAMINS W/ FOLIC ACID TABLET (FP) PO SCH (10:33)
[2018-07-11 10:34] LABS: HEMATOCRIT 32.8 % (35.4-49); HEMOGLOBIN 10.9 GM/dL (11.7-16.9); MCH 31.9 pg (25.7-33.7); MCHC 33.3 g/dl (32.0-35.9); MEAN PLT VOLUME 9.5 fl (7.5-11.1); PLATELET COUNT 180 K/MM3 (134-434); RBC 3.42 M/mm3 (4.00-5.60); RDW 13.4 % (11.9-15.9); WHITE BLOOD COUNT 6.3 K/mm3 (4.0-10.0)
[2018-07-11 11:07] LABS: ALK PHOS 127 U/L (45-117); ANION GAP 10 MMOL/L (8-16); BILIRUBIN,TOTAL 0.2 mg/dL (0.2-1); BLOOD UREA NITROGEN 14 mg/dL (7-18); CALCIUM 8.9 mg/dL (8.5-10.1); CHLORIDE 105 mmol/L (98-107); CO2 28 mmol/L (21-32); CREATININE 0.8 mg/dL (0.55-1.3); GLUCOSE,RANDOM 84 mg/dL (74-106); POTASSIUM 3.7 mmol/L (3.5-5.1); SGOT/AST 23 U/L (15-37); SGPT/ALT 22 U/L (13-61); SODIUM 143 mmol/L (136-145); TOT PROT 5.2 g/dl (6.4-8.2)
--- NOTE | 2018-07-11 11:07 | EKG ---
Test Reason : Blood Pressure : / mmHG Vent. Rate : 069 BPM Atrial Rate : 069 BPM P-R Int : 152 ms QRS Dur : 080 ms QT Int : 382 ms P-R-T Axes : 079 078 072 degrees QTc Int : 409 ms POOR DATA QUALITY, INTERPRETATION MAY BE ADVERSELY AFFECTED NORMAL SINUS RHYTHM NORMAL ECG WHEN COMPARED WITH ECG OF 28-JUL-2017 14:08, NO SIGNIFICANT CHANGE WAS FOUND Confirmed by Deepak Santamaria MD ([id number]) on 07/11/2018 11:06:27 AM Referred By: Confirmed By:Deepak Santamaria MD
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
--- NOTE | 2018-07-11 11:48 | PN ---
[facility] CIWA - CIWA Score Nausea/Vomitin-No Nausea/No Vomiting Muscle Tremors: 4-Moderate,w/Arms Extend Anxiety: 3 Agitation: 3 Paroxysmal Sweats: 3 Orientation: 0-Oriented Tacttile Disturbances: 0-None Auditory Disturbances: 0-None Visual Disturbances: 0-None Headache: 0-None Present CIWA-Ar Total Score: 13 BHS COWS - Scale Resting Pulse: 0= [place] 80 or Below Sweatin= Chills/Flushing Restless Observation: 1= Difficult to Sit Still Pupil Size: 0= Normal to Room Light Bone or Joint Aches: 1= Mild Discomfort Runny Nose/ Eye Tearin= Runny Nose/Eyes GI Upset > 30mins: 2= Nausea/Diarrhea Tremor Observation of Outstretched Hands: 2= Slight Tremor Visible Yawning Observation: 2= >3x During Session Anxiety or Irritability: 2=Irritable/Anxious Goose Flesh Skin: 0=Smooth Skin COWS Score: 13 [facility] Progress Note (SOAP) Subjective: agitation irritable sweats interrupted sleep chills Objective: 07/11/18 11:47 Vital Signs Temperature 98.1 F 07/11/18 09:20 Pulse Rate 55 L 07/11/18 09:20 Respiratory Rate 18 07/11/18 09:20 Blood Pressure 119/68 07/11/18 09:20 O2 Sat by Pulse Oximetry (%) Laboratory Tests 07/11/18 07/11/18 07/11/18 07:30 07:30 07:30 WBC 6.3 RBC 3.42 L Hgb 10.9 L Hct 32.8 L MCV 96.0 MCH 31.9 MCHC 33.3 RDW 13.4 Plt Count 180 D MPV 9.5 D Sodium 143 Potassium 3.7 Chloride 105 Carbon Dioxide 28 Anion Gap 10 BUN 14 Creatinine 0.8 Creat Clearance w eGFR > 60 Random Glucose 84 Calcium 8.9 Total Bilirubin 0.2 AST 23 ALT 22 Alkaline Phosphatase 127 H Total Protein 5.2 L Albumin 3.0 L RPR Titer Nonreactive rest of labs pending aaox3 ambulating no acute distress Assessment: 07/11/18 11:47 withdrawal sx Plan: continue detox increase fluids rest of labs pending
[2018-07-11 18:07] LABS: URINE APPEARANCE CLOUDY; URINE BILIRUBIN NEGATIVE (<2.0 mg/dL); URINE COLOR AMBER; URINE GLUCOSE (UA) NEGATIVE (NEGATIVE); URINE KETONE TRACE (NEGATIVE); URINE NITRITE NEGATIVE (NEGATIVE)
[2018-07-11 18:17] LABS: URINE LEUK ESTERASE 3+ (NEGATIVE); URINE PROTEIN 2+ (NEGATIVE)
[2018-07-11 19:39] LABS: CALCIUM OXALATE CRYSTALS MODERATE /hpf (NONE SEEN); EPI CELLS RARE /HPF (FEW); URINE BACTERIA RARE /hpf (NONE SEEN); URINE MUCUS MODERATE
[2018-07-11] MEDS: THIAMINE HCL 100 MG TABLET (FP) PO SCH (22:03)
[2018-07-12] MEDS: chlordiazePOXIDE HCL 25 MG CAPSULE PO SCH ×3 (05:51→16:58)
[2018-07-12] MEDS: PRENATAL VITAMINS W/ FOLIC ACID TABLET (FP) PO SCH (10:03)
[2018-07-12] MEDS: METHADONE HCL 5 MG TABLET (FOR DETOX USE ONLY) PO SCH (10:03)
[2018-07-12] MEDS: NICOTINE 14 MG/24 HOURS TOPICAL PATCH TD SCH (10:03)
--- NOTE | 2018-07-12 11:03 | PN ---
[facility] CIWA - CIWA Score Nausea/Vomitin-No Nausea/No Vomiting Muscle Tremors: 3 Anxiety: 2 Agitation: 2 Paroxysmal Sweats: 3 Orientation: 0-Oriented Tacttile Disturbances: 0-None Auditory Disturbances: 0-None Visual Disturbances: 0-None Headache: 0-None Present CIWA-Ar Total Score: 10 BHS COWS - Scale Resting Pulse: 0= [place] 80 or Below Sweatin= Chills/Flushing Restless Observation: 1= Difficult to Sit Still Pupil Size: 0= Normal to Room Light Bone or Joint Aches: 1= Mild Discomfort Runny Nose/ Eye Tearin= Runny Nose/Eyes GI Upset > 30mins: 0= None Tremor Observation of Outstretched Hands: 2= Slight Tremor Visible Yawning Observation: 2= >3x During Session Anxiety or Irritability: 1=Feels Anxious/Irritable Goose Flesh Skin: 0=Smooth Skin COWS Score: 10 S Progress Note (SOAP) Subjective: agitation anxiety sweats irritable Objective: 07/12/18 11:02 Vital Signs Temperature 97.7 F 07/12/18 09:08 Pulse Rate 56 L 07/12/18 09:08 Respiratory Rate 18 07/12/18 09:08 Blood Pressure 114/55 L 07/12/18 09:08 O2 Sat by Pulse Oximetry (%) Laboratory Tests 07/11/18 07/11/18 07/11/18 07:30 07:30 07:30 WBC 6.3 RBC 3.42 L Hgb 10.9 L Hct 32.8 L MCV 96.0 MCH 31.9 MCHC 33.3 RDW 13.4 Plt Count 180 D MPV 9.5 D Sodium 143 Potassium 3.7 Chloride 105 Carbon Dioxide 28 Anion Gap 10 BUN 14 Creatinine 0.8 Creat Clearance w eGFR > 60 Random Glucose 84 Calcium 8.9 Total Bilirubin 0.2 AST 23 ALT 22 Alkaline Phosphatase 127 H Total Protein 5.2 L Albumin 3.0 L Urine Color Urine Appearance Urine pH Ur Specific [place] Urine Protein Urine Glucose (UA) Urine Ketones Urine Blood Urine Nitrite Urine Bilirubin Urine Urobilinogen Ur Leukocyte Esterase Urine WBC (Auto) Urine RBC (Auto) Ur Epithelial Cells Calcium Oxalate Crystal Urine Bacteria Urine Mucus RPR Titer Nonreactive 07/11/18 16:30 WBC RBC Hgb Hct MCV MCH MCHC RDW Plt Count MPV Sodium Potassium Chloride Carbon Dioxide Anion Gap BUN Creatinine Creat Clearance w eGFR Random Glucose Calcium Total Bilirubin AST ALT Alkaline Phosphatase Total Protein Albumin Urine Color Stacey Urine Appearance Cloudy Urine pH 6.0 Ur Specific [place] 1.024 Urine Protein 2+ H Urine Glucose (UA) Negative Urine Ketones Trace H Urine Blood 2+ H Urine Nitrite Negative Urine Bilirubin Negative Urine Urobilinogen 2.0 Ur Leukocyte Esterase 3+ H Urine WBC (Auto) 330 Urine RBC (Auto) 156 Ur Epithelial Cells Rare Calcium Oxalate Crystal Moderate Urine Bacteria Rare Urine Mucus Moderate RPR Titer repeat u/a with c/s aaox3 ambulating no acute distress Assessment: 07/12/18 11:02 withdrawal sx Plan: continue detox increase fluids f/u pending labs
[2018-07-12 14:44] LABS: URINE APPEARANCE CLEAR; URINE BILIRUBIN NEGATIVE (<2.0 mg/dL); URINE COLOR STRAW; URINE GLUCOSE (UA) NEGATIVE (NEGATIVE); URINE KETONE NEGATIVE (NEGATIVE); URINE LEUK ESTERASE TRACE (NEGATIVE); URINE NITRITE NEGATIVE (NEGATIVE); URINE PROTEIN NEGATIVE (NEGATIVE); URINE UROBILINOGEN NEGATIVE mg/dL (0.2-1.0)
[2018-07-12 15:25] LABS: URINE MUCUS RARE
[2018-07-12] MEDS: THIAMINE HCL 100 MG TABLET (FP) PO SCH (22:12)
[2018-07-12] MEDS: MELATONIN 5 MG TABLETS PO PRN (22:13)
[2018-07-12] MEDS: chlordiazePOXIDE 5 MG CAPSULE PO SCH (22:13)
[2018-07-13] MEDS: chlordiazePOXIDE 5 MG CAPSULE PO SCH ×3 (05:43→17:04)
[2018-07-13] MEDS ORDERED: ONDANSETRON *ODT* 4 MG TABLET SL PRN (09:13)
[2018-07-13] MEDS: METHADONE HCL 5 MG TABLET (FOR DETOX USE ONLY) PO SCH (10:21)
[2018-07-13] MEDS: PRENATAL VITAMINS W/ FOLIC ACID TABLET (FP) PO SCH (10:22)
[2018-07-13] MEDS: NICOTINE 14 MG/24 HOURS TOPICAL PATCH TD SCH (10:23)
--- NOTE | 2018-07-13 10:37 | PN ---
[facility] Progress Note Note: Vital Signs Temperature 97.3 F L 07/13/18 09:53 Pulse Rate 56 L 07/13/18 09:53 Respiratory Rate 18 07/13/18 09:53 Blood Pressure 109/66 07/13/18 09:53 O2 Sat by Pulse Oximetry (%) Laboratory Last Values WBC 6.3 K/mm3 (4.0-10.0) 07/11/18 07:30 RBC 3.42 M/mm3 (4.00-5.60) L 07/11/18 07:30 Hgb 10.9 GM/dL (11.7-16.9) L 07/11/18 07:30 Hct 32.8 % (35.4-49) L 07/11/18 07:30 MCV 96.0 fl (80-96) 07/11/18 07:30 MCH 31.9 pg (25.7-33.7) 07/11/18 07:30 MCHC 33.3 g/dl (32.0-35.9) 07/11/18 07:30 RDW 13.4 % (11.9-15.9) 07/11/18 07:30 Plt Count 180 K/MM3 (134-434) D 07/11/18 07:30 MPV 9.5 fl (7.5-11.1) D 07/11/18 07:30 Sodium 143 mmol/L (136-145) 07/11/18 07:30 Potassium 3.7 mmol/L (3.5-5.1) 07/11/18 07:30 Chloride 105 mmol/L (98-107) 07/11/18 07:30 Carbon Dioxide 28 mmol/L (21-32) 07/11/18 07:30 Anion Gap 10 MMOL/L (8-16) 07/11/18 07:30 BUN 14 mg/dL (7-18) 07/11/18 07:30 Creatinine 0.8 mg/dL (0.55-1.3) 07/11/18 07:30 Creat Clearance w eGFR > 60 (>60) 07/11/18 07:30 Random Glucose 84 mg/dL (74-106) 07/11/18 07:30 Calcium 8.9 mg/dL (8.5-10.1) 07/11/18 07:30 Total Bilirubin 0.2 mg/dL (0.2-1) 07/11/18 07:30 AST 23 U/L (15-37) 07/11/18 07:30 ALT 22 U/L (13-61) 07/11/18 07:30 Alkaline Phosphatase 127 U/L (45-117) H 07/11/18 07:30 Total Protein 5.2 g/dl (6.4-8.2) L 07/11/18 07:30 Albumin 3.0 g/dl (3.4-5.0) L 07/11/18 07:30 Urine Color Straw 07/12/18 13:00 Urine Appearance Clear 07/12/18 13:00 Urine pH 8.0 (5.0-8.0) D 07/12/18 13:00 Ur Specific [place] 1.006 (1.001-1.035) 07/12/18 13:00 Urine Protein Negative (NEGATIVE) 07/12/18 13:00 Urine Glucose (UA) Negative (NEGATIVE) 07/12/18 13:00 Urine Ketones Negative (NEGATIVE) 07/12/18 13:00 Urine Blood Negative (NEGATIVE) 07/12/18 13:00 Urine Nitrite Negative (NEGATIVE) 07/12/18 13:00 Urine Bilirubin Negative (<2.0 mg/dL) 07/12/18 13:00 Urine Urobilinogen Negative mg/dL (0.2-1.0) 07/12/18 13:00 Ur Leukocyte Esterase Trace (NEGATIVE) 07/12/18 13:00 Urine WBC (Auto) 3 /hpf (3-5) 07/12/18 13:00 Urine RBC (Auto) <1 /hpf (0-3) 07/12/18 13:00 Ur Epithelial Cells Rare /HPF (FEW) 07/11/18 16:30 Calcium Oxalate Crystal Moderate /hpf (NONE SEEN) 07/11/18 16:30 Urine Bacteria Rare /hpf (NONE SEEN) 07/11/18 16:30 Urine Mucus Rare 07/12/18 13:00 RPR Titer Nonreactive (NONREACTIVE) 07/11/18 07:30 Patient c/o body aches Patient no distress no adventitious breath sounds ambulating in the unit independently withdrawal sx continue detox increase fluids zofran prn continue to monitor
[2018-07-13] MEDS: chlordiazePOXIDE HCL 10 MG CAPSULE PO SCH (22:02)
[2018-07-13] MEDS: THIAMINE HCL 100 MG TABLET (FP) PO SCH (22:02)
[2018-07-13] MEDS: MELATONIN 5 MG TABLETS PO PRN (22:02)
[2018-07-14] MEDS: chlordiazePOXIDE HCL 10 MG CAPSULE PO SCH ×3 (05:29→17:57)
[2018-07-14] MEDS ORDERED: METHADONE HCL 10 MG TABLET (FOR DETOX USE ONLY) PO SCH (10:00)
[2018-07-14] MEDS: NICOTINE 14 MG/24 HOURS TOPICAL PATCH TD SCH (10:20)
[2018-07-14] MEDS: PRENATAL VITAMINS W/ FOLIC ACID TABLET (FP) PO SCH (10:20)
--- NOTE | 2018-07-14 13:29 | PN ---
[facility] Progress Note Note: PATIENT ALERT AND ORIENTED. TOLERATING DETOX WELL. DENIES SWEATING, HEADACHE, TREMORS AND N/V/D. Laboratory Tests 07/11/18 07/11/18 07/11/18 07:30 07:30 07:30 WBC 6.3 RBC 3.42 L Hgb 10.9 L Hct 32.8 L MCV 96.0 MCH 31.9 MCHC 33.3 RDW 13.4 Plt Count 180 D MPV 9.5 D Sodium 143 Potassium 3.7 Chloride 105 Carbon Dioxide 28 Anion Gap 10 BUN 14 Creatinine 0.8 Creat Clearance w eGFR > 60 Random Glucose 84 Calcium 8.9 Total Bilirubin 0.2 AST 23 ALT 22 Alkaline Phosphatase 127 H Total Protein 5.2 L Albumin 3.0 L Urine Color Urine Appearance Urine pH Ur Specific [place] Urine Protein Urine Glucose (UA) Urine Ketones Urine Blood Urine Nitrite Urine Bilirubin Urine Urobilinogen Ur Leukocyte Esterase Urine WBC (Auto) Urine RBC (Auto) Ur Epithelial Cells Calcium Oxalate Crystal Urine Bacteria Urine Mucus RPR Titer Nonreactive 07/11/18 07/12/18 16:30 13:00 WBC RBC Hgb Hct MCV MCH MCHC RDW Plt Count MPV Sodium Potassium Chloride Carbon Dioxide Anion Gap BUN Creatinine Creat Clearance w eGFR Random Glucose Calcium Total Bilirubin AST ALT Alkaline Phosphatase Total Protein Albumin Urine Color Stacey Straw Urine Appearance Cloudy Clear Urine pH 6.0 8.0 D Ur Specific [place] 1.024 1.006 Urine Protein 2+ H Negative Urine Glucose (UA) Negative Negative Urine Ketones Trace H Negative Urine Blood 2+ H Negative Urine Nitrite Negative Negative Urine Bilirubin Negative Negative Urine Urobilinogen 2.0 Negative Ur Leukocyte Esterase 3+ H Trace Urine WBC (Auto) 330 3 Urine RBC (Auto) 156 <1 Ur Epithelial Cells Rare Calcium Oxalate Crystal Moderate Urine Bacteria Rare Urine Mucus Moderate Rare RPR Titer Vital Signs Temperature 97.9 F 07/14/18 09:37 Pulse Rate 56 L 07/14/18 09:37 Respiratory Rate 18 07/14/18 09:37 Blood Pressure 136/73 07/14/18 09:37 O2 Sat by Pulse Oximetry (%) PE; ALERT AND ORIENTED SKIN WARM AND DRY AMB AD JEANNA PSYCH CALM, CONVERSATIONAL A/P: WITHDRAWAL SYNDROME DETOX CONTINUED ORAL FLUIDS MAINTAINED CONTINUE TO MONITOR
[2018-07-14] MEDS: THIAMINE HCL 100 MG TABLET (FP) PO SCH (22:20)
[2018-07-14] MEDS: MELATONIN 5 MG TABLETS PO PRN (22:21)
[2018-07-15] MEDS ORDERED: METHADONE HCL 5 MG TABLET (FOR DETOX USE ONLY) PO SCH (06:00)
[2018-07-15] MEDS: PRENATAL VITAMINS W/ FOLIC ACID TABLET (FP) PO SCH (10:12)
[2018-07-15] MEDS: NICOTINE 14 MG/24 HOURS TOPICAL PATCH TD SCH (10:12)
[2018-07-15 10:39] VITALS: BP 125/72; PULSE 69; TEMP 97.3
--- NOTE | 2018-07-15 15:00 | DS ---
[facility] Detox Discharge Summary Admission Date: 07/10/18 Discharge Date: 07/15/18 - History Present History: Alcohol Dependence, Opioid Dependence - Physical Exam Results Vital Signs: Vital Signs Temperature 97.3 F L 07/15/18 10:38 Pulse Rate 69 07/15/18 10:38 Respiratory Rate 16 07/15/18 10:38 Blood Pressure 125/72 07/15/18 10:38 O2 Sat by Pulse Oximetry (%) Pertinent Admission Physical Exam Findings: Patient tolerated and completed detox well. Medically stable. Denies SI/HI. Alert and oriented x 3. Skin warm and dry. In NAD. Amb ad wilfrido. Patient accepted referral to [facility] on . Patient encouraged to complete rehab to prevent relapse. - Treatment Hospital Course: Detox Protocol Followed, Detoxed Safely, Responded well, Discharged Condition Good, Rehab Referral Accepted Patient has Accepted a Rehab Referral to: [facility] 3W - Medication Discharge Medications: Ambulatory Orders Ammonium Lactate Cream [Lac-Hydrin 12% Cream -] 1 applic TP BID 07/15/18 [place] 0.77% Cream Kit 1 applic TP BID 07/15/18 - Diagnosis (1) Alcohol dependence with uncomplicated withdrawal Status: Resolved (2) Opioid dependence with withdrawal Status: Resolved - AMA Did Patient Leave Against Medical Advice: No
== END 2018-07-15 13:20 | disposition other institution (70) | DRG 773 ==
LOC: YASAS 16:10 → Y6N 19:20
PROC: HZ2ZZZZ Detoxification Services for Substance Abuse Treatment (ICD-10-PCS; principal; 2018-07-10)
DX: F11.23 Opioid dependence with withdrawal (principal); F10.230 Alcohol dependence with withdrawal, uncomplicated; F14.20 Cocaine dependence, uncomplicated; F12.20 Cannabis dependence, uncomplicated; F17.213 Nicotine dependence, cigarettes, with withdrawal; F19.24 Other psychoactive substance dependence with psychoactive substance-induced mood disorder; F43.10 Post-traumatic stress disorder, unspecified; R45.89 Other symptoms and signs involving emotional state
CPT/HCPCS: 36415; 80053; 81003; 81015; 85027; 86593; 87086; 93005; 93010

== ENCOUNTER 2018-07-15 14:09 | Inpatient (IN) | payer OTHER ==
[2018-07-15 14:48] VITALS: BMI 20.1
[2018-07-15] MEDS ORDERED: MAGNESIUM HYDROX 2400MG/30ML ORAL SUSPENSION 30 ML CUP PO PRN (14:50)
[2018-07-15] MEDS ORDERED: LOPERAMIDE HCL 2 MG CAPSULE PO PRN (14:50)
[2018-07-15] MEDS ORDERED: P-EPHED 60MG/TRIPROLIDI 2.5MG TABLET PO PRN (14:50)
[2018-07-15] MEDS ORDERED: MAGNESIUM CITRATE 300 ML BOTTLE PO PRN (14:50)
[2018-07-15] MEDS ORDERED: MENTHOL/PHENOL 1 EACH UD MM PRN (14:50)
[2018-07-15] MEDS ORDERED: ACETAMINOPHEN 325 MG TABLET (FP) PO PRN (14:50)
[2018-07-15] MEDS ORDERED: guaiFENesin/D-METHORPHAN HB 10 ML UNIT-DOSE CUPS PO PRN (14:50)
[2018-07-15] MEDS ORDERED: IBUPROFEN 400 MG TABLET (FP) PO PRN (14:50)
[2018-07-15] MEDS ORDERED: MAG HYDROX/AL HYDROX/SIMETH 30 ML UNIT-DOSE CUP PO PRN (14:50)
[2018-07-15] MEDS ORDERED: NICOTINE POLACRILEX 2 MG GUM BUC PRN (14:53)
--- NOTE | 2018-07-15 15:42 | HP ---
[facility] Rehab Assess/Revision - Admission History Admitted to Rehab from: [facility] [place] Date of Admission to Rehab: 07/15/2018 - Vital signs Vital Signs: Vital Signs Period Temp Pulse Resp BP Sys/Garcia Pulse Ox Last 24 Hr 97.7 F-97.7 F 60-60 18-18 126-126/66-66 - Findings Detox History & Physical reviewed: Yes Concur with findings: Yes Inpatient Rehab Admission - Initial Determination Are CD services needed?: Yes Free of communicable disease: Yes Not in need of hospitalization: Yes - Rehab Admission Criteria Previous failed treatment: Yes Poor recovery environment: Yes Comorbidities: Yes Lacks judgement: Yes Patient is meeting Inpatient Rehab admission criteria:: Yes
[2018-07-15] MEDS: THIAMINE HCL 100 MG TABLET (FP) PO SCH (22:22)
[2018-07-15] MEDS: MELATONIN 5 MG TABLETS PO PRN (22:23)
[2018-07-16] MEDS: PRENATAL VITAMINS W/ FOLIC ACID TABLET (FP) PO SCH (10:00)
[2018-07-16] MEDS: NICOTINE 14 MG/24 HOURS TOPICAL PATCH TD SCH (10:00)
[2018-07-16] MEDS: THIAMINE HCL 100 MG TABLET (FP) PO SCH (21:39)
[2018-07-16] MEDS: MELATONIN 5 MG TABLETS PO PRN (21:40)
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
[2018-07-17] MEDS: NICOTINE 14 MG/24 HOURS TOPICAL PATCH TD SCH (10:50)
[2018-07-17] MEDS: PRENATAL VITAMINS W/ FOLIC ACID TABLET (FP) PO SCH (10:50)
--- NOTE | 2018-07-17 11:42 | PN ---
S Progress Note Note: S/p head injury prior to admission. c/o occ headache. No headache at this time. C/o poor appetite. Continue to have some nausea w/o vomiting. Reviewed medications. Tinea pedis. Patient will f/u w/ [facility] upon discharge. Continue LacHydrin lotion. Tinactin 1% to feet. Ensure 120 ml PO TID
[2018-07-17] MEDS: AMMONIUM LACTATE 12% CREAM 140 GM TUBE TP SCH (21:40)
[2018-07-17] MEDS: THIAMINE HCL 100 MG TABLET (FP) PO SCH (21:41)
[2018-07-17] MEDS: MELATONIN 5 MG TABLETS PO PRN (21:41)
[2018-07-17] MEDS: TOLNAFTATE 1% CREAM 15 GM TUBE TP SCH (21:42)
[2018-07-18] MEDS: AMMONIUM LACTATE 12% CREAM 140 GM TUBE TP SCH ×2 (10:23→22:25)
[2018-07-18] MEDS: NICOTINE 14 MG/24 HOURS TOPICAL PATCH TD SCH (10:23)
[2018-07-18] MEDS: PRENATAL VITAMINS W/ FOLIC ACID TABLET (FP) PO SCH (10:23)
[2018-07-18] MEDS: TOLNAFTATE 1% CREAM 15 GM TUBE TP SCH ×2 (10:24→22:25)
[2018-07-18] MEDS: MELATONIN 5 MG TABLETS PO PRN (22:25)
[2018-07-18] MEDS: THIAMINE HCL 100 MG TABLET (FP) PO SCH (22:25)
[2018-07-19] MEDS: PRENATAL VITAMINS W/ FOLIC ACID TABLET (FP) PO SCH (10:06)
[2018-07-19] MEDS: TOLNAFTATE 1% CREAM 15 GM TUBE TP SCH ×2 (10:06→21:38)
[2018-07-19] MEDS: NICOTINE 14 MG/24 HOURS TOPICAL PATCH TD SCH (10:06)
[2018-07-19] MEDS: AMMONIUM LACTATE 12% CREAM 140 GM TUBE TP SCH ×2 (10:06→21:38)
[2018-07-19] MEDS ORDERED: PT OWN MED DRAWER 7, Y5N ONE ×2 (19:21→22:25)
[2018-07-19] MEDS: THIAMINE HCL 100 MG TABLET (FP) PO SCH (21:36)
[2018-07-19] MEDS: MELATONIN 5 MG TABLETS PO PRN (21:37)
[2018-07-20] MEDS: AMMONIUM LACTATE 12% CREAM 140 GM TUBE TP SCH ×2 (10:02→22:21)
[2018-07-20] MEDS: NICOTINE 14 MG/24 HOURS TOPICAL PATCH TD SCH (10:02)
[2018-07-20] MEDS: TOLNAFTATE 1% CREAM 15 GM TUBE TP SCH ×2 (10:02→22:21)
[2018-07-20] MEDS: PRENATAL VITAMINS W/ FOLIC ACID TABLET (FP) PO SCH (10:02)
[2018-07-20] MEDS: THIAMINE HCL 100 MG TABLET (FP) PO SCH (22:21)
[2018-07-21 07:13] VITALS: TEMP 97.8
[2018-07-21] MEDS: AMMONIUM LACTATE 12% CREAM 140 GM TUBE TP SCH ×2 (10:30→22:35)
[2018-07-21] MEDS: NICOTINE 14 MG/24 HOURS TOPICAL PATCH TD SCH (10:30)
[2018-07-21] MEDS: PRENATAL VITAMINS W/ FOLIC ACID TABLET (FP) PO SCH (10:30)
[2018-07-21] MEDS: TOLNAFTATE 1% CREAM 15 GM TUBE TP SCH ×2 (10:31→22:35)
[2018-07-21] MEDS: THIAMINE HCL 100 MG TABLET (FP) PO SCH (21:59)
[2018-07-21] MEDS: MELATONIN 5 MG TABLETS PO PRN (22:00)
[2018-07-21] MEDS: hydrOXYzine PAMOATE 25 MG CAPSULE (FP) PO PRN (22:01)
[2018-07-22 07:28] VITALS: BP 118/71; PULSE 58
[2018-07-22] MEDS: AMMONIUM LACTATE 12% CREAM 140 GM TUBE TP SCH ×2 (10:15→22:00)
[2018-07-22] MEDS: NICOTINE 14 MG/24 HOURS TOPICAL PATCH TD SCH (10:16)
[2018-07-22] MEDS: PRENATAL VITAMINS W/ FOLIC ACID TABLET (FP) PO SCH (10:16)
[2018-07-22] MEDS: TOLNAFTATE 1% CREAM 15 GM TUBE TP SCH ×2 (10:16→22:00)
[2018-07-22] MEDS: MELATONIN 5 MG TABLETS PO PRN (21:59)
[2018-07-22] MEDS: THIAMINE HCL 100 MG TABLET (FP) PO SCH (21:59)
[2018-07-22] MEDS: hydrOXYzine PAMOATE 25 MG CAPSULE (FP) PO PRN (21:59)
[2018-07-23] MEDS: AMMONIUM LACTATE 12% CREAM 140 GM TUBE TP SCH ×2 (10:37→22:19)
[2018-07-23] MEDS: TOLNAFTATE 1% CREAM 15 GM TUBE TP SCH ×2 (10:37→22:19)
[2018-07-23] MEDS: NICOTINE 14 MG/24 HOURS TOPICAL PATCH TD SCH (10:37)
[2018-07-23] MEDS: PRENATAL VITAMINS W/ FOLIC ACID TABLET (FP) PO SCH (10:37)
[2018-07-23] MEDS ORDERED: PT OWN MED DRAWER 7, Y5N ONE (19:45)
[2018-07-23] MEDS: hydrOXYzine PAMOATE 25 MG CAPSULE (FP) PO PRN (22:18)
[2018-07-23] MEDS: MELATONIN 5 MG TABLETS PO PRN (22:18)
[2018-07-23] MEDS: THIAMINE HCL 100 MG TABLET (FP) PO SCH (22:18)
[2018-07-24] MEDS: PRENATAL VITAMINS W/ FOLIC ACID TABLET (FP) PO SCH (10:26)
[2018-07-24] MEDS: NICOTINE 14 MG/24 HOURS TOPICAL PATCH TD SCH (10:27)
[2018-07-24] MEDS: TOLNAFTATE 1% CREAM 15 GM TUBE TP SCH ×2 (10:27→22:08)
[2018-07-24] MEDS: AMMONIUM LACTATE 12% CREAM 140 GM TUBE TP SCH ×2 (10:27→22:08)
--- NOTE | 2018-07-24 12:26 | PN ---
Psychiatric Progress Note Vital Signs: Vital Signs Period Temp Pulse Resp BP Sys/Garcia Pulse Ox Last 24 Hr 16-16 Date of Session: 07/24/18 Chief Complaint:: Discharge Note HPI: Patient addressing Alcohol, Opioid and Cannabis Dependence comorbid with Nicotine Dependence and Postraumatic Stress Disorder Current Medications: Active Medications Generic Name Dose Route Start Last Admin Trade Name Freq PRN Reason Stop Dose Admin Acetaminophen 650 mg 07/15/18 14:50 Tylenol - PO Q4H PRN FEVER Al Hydroxide/Mg Hydroxide 30 ml 07/15/18 14:50 Mylanta Oral Suspension - PO Q6H PRN DYSPEPSIA Eucalyptus/Menthol/Phenol/Sorbitol 1 each 07/15/18 14:50 Cepastat Lozenge - MM Q4H PRN SORE THROAT Guaifenesin 10 ml 07/15/18 14:50 Robitussin Dm - PO Q6H PRN COUGH Hydroxyzine Pamoate 25 mg 07/15/18 14:50 07/23/18 22:18 Vistaril - PO 25 mg Q4H PRN Administration AGITATION Ibuprofen 400 mg 07/15/18 14:50 07/15/18 15:43 Motrin - PO 400 mg Q6H PRN Administration Pain Level 4-6 Lactic Acid 1 applic 07/17/18 22:00 07/24/18 10:27 Lac-Hydrin 12% Cream - TP Not Given BID UDAY Loperamide HCl 4 mg 07/15/18 14:50 Imodium - PO Q6H PRN DIARRHEA Magnesium Citrate 300 ml 07/15/18 14:50 Citroma - PO Q48H PRN CONSTIPATION Magnesium Hydroxide 30 ml 07/15/18 14:50 Milk Of Magnesia - PO DAILY PRN CONSTIPATION Melatonin 5 mg 07/15/18 22:00 07/23/18 22:18 Melatonin PO 5 mg HS PRN Administration INSOMNIA Nicotine 14 mg 07/16/18 10:00 07/24/18 10:27 Nicoderm Patch - TD Not Given DAILY UDAY Nicotine Polacrilex 2 mg 07/15/18 14:53 Nicorette Gum - BUC Q2H PRN NICOTINE REPLACEMENT RX Multivit/Folic Acid/Iron 1 tab 07/16/18 10:00 07/24/18 10:26 Vitamins (Sjr) - PO 1 tab DAILY UDAY Administration Pseudoephedrine/Triprolidine 1 combo 10/06/18 14:50 Actifed - PO TID PRN NASAL CONGESTION Thiamine HCl 100 mg 07/15/18 22:00 07/23/18 22:18 Vitamin B1 - PO 100 mg HS UDAY Administration Tolnaftate 1 applic 07/17/18 22:00 07/24/18 10:27 Tinactin 1% Cream - TP Not Given BID [facility] Current Side Effect: No Lab tests ordered: Yes Lab tests reviewed: Yes Provider note:: Patient will complete this program on 07/25/18. 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 He is stable for discharge on 07/25/18 Total face to face time:: 35 Mental Status Exam - Mental Status Exam Alert and Oriented to: Time, Place, Person Cognitive Function: Fair Patient Appearance: Well Groomed Mood: Hopeful, Euthymic Affect: Appropriate Patient Behavior: Cooperative Speech Pattern: Clear Voice Loudness: Normal Thought Process: Intact, Goal Oriented Thought Disorder: Not Present Hallucinations: Denies Suicidal Ideation: Denies Homicidal Ideation: Denies Insight/Judgement: Fair Sleep: Fair Appetite: Good Muscle strength/Tone: Normal Gait/Station: Normal Psychiatric Treatment Plan - Problem List (1) Alcohol dependence Current Visit: No (2) Opioid dependence Current Visit: Yes (3) Cannabis dependence Current Visit: Yes (4) Nicotine dependence Current Visit: No Qualifiers: Nicotine product type: cigarettes Substance use status: in withdrawal Qualified Code(s): F17.213 - Nicotine dependence, cigarettes, with withdrawal (5) PTSD (post-traumatic stress disorder) Current Visit: No (6) Substance induced mood disorder Current Visit: Yes (7) Substance-induced sleep disorder Current Visit: Yes (8) Renal calculi Current Visit: Yes Initial treatment plan: Patient will be discharged tomorrow and referred to [facility] for prison residential treatment
--- NOTE | 2018-07-24 14:15 | PN ---
[facility]HS Progress Note Note: Patient complains of sleeping poorly despite taking Melatonin 5mg po at bedtime. Will order Belsomra 10 mg po HS prn for insomnia
[2018-07-24] MEDS ORDERED: SUVOREXANT 10 MG TABLET PO PRN (22:00)
[2018-07-24] MEDS: MELATONIN 5 MG TABLETS PO PRN (22:07)
[2018-07-24] MEDS: THIAMINE HCL 100 MG TABLET (FP) PO SCH (22:07)
[2018-07-25] MEDS: NICOTINE 14 MG/24 HOURS TOPICAL PATCH TD SCH (10:45)
[2018-07-25] MEDS: TOLNAFTATE 1% CREAM 15 GM TUBE TP SCH (10:45)
[2018-07-25] MEDS: AMMONIUM LACTATE 12% CREAM 140 GM TUBE TP SCH (10:45)
[2018-07-25] MEDS: PRENATAL VITAMINS W/ FOLIC ACID TABLET (FP) PO SCH (10:45)
== END 2018-07-25 11:33 | disposition home or self-care (01) | DRG 772 ==
LOC: YASAS 14:09 → Y3W 14:10
PROVIDERS: ADMIT Psychiatry & Neurology Psychiatry; ATTEND Psychiatry & Neurology Psychiatry
PROC: HZ42ZZZ Group Counseling for Substance Abuse Treatment, Cognitive-Behavioral (ICD-10-PCS; principal; 2018-07-15)
DX: F11.20 Opioid dependence, uncomplicated (principal); F10.20 Alcohol dependence, uncomplicated; F12.20 Cannabis dependence, uncomplicated; F17.213 Nicotine dependence, cigarettes, with withdrawal; F43.10 Post-traumatic stress disorder, unspecified; F19.24 Other psychoactive substance dependence with psychoactive substance-induced mood disorder; F19.282 Other psychoactive substance dependence with psychoactive substance-induced sleep disorder; B35.3 Tinea pedis; Z87.442 Personal history of urinary calculi
CPT/HCPCS: 36415; 87389

== ENCOUNTER 2020-04-13 11:02 | Inpatient (IN) | payer OTHER ==
--- NOTE | 2020-04-13 11:34 | BHS.RME ---
Substance Use & Tx History - Substance Use History Heroin Substance amount: 10 bags of heroin Frequency of use: Daily Substance route: Inhalation (ex: sniffing or snorting) Date of Last Use: 04/13/20 Cocaine-Crack Substance amount: 50$ Frequency of use: Daily Substance route: Smoking Date of Last Use: 04/13/20 Alcohol Substance amount: 1 pint of vodka Frequency of use: Daily Date of Last Use: 04/12/20 PCP Substance amount: 50$ Frequency of use: Less than 3 times per week Substance route: Smoking Date of Last Use: 04/12/20 Marijuana/Hashish Substance amount: 10$ Frequency of use: Daily Substance route: Smoking Date of Last Use: 04/12/20 Methadone Substance amount: 120mgs Frequency of use: Less than 3 times per week Substance route: Oral Date of Last Use: 04/12/20 - Last Treatment Date of last treatment: [facility] 03/[facility] Where was last treatment: Detox Physical/Psych/Mental Status - Behavior Eye Contact: Normal - Cooperativeness Cooperativeness: Cooperative - Thinking Thought content: Future oriented - Physical Health Problems Is patient presently having any pain?: No Does patient currently have a fever: No COWS - Scale Resting Pulse: 0= [place] 80 or Below Sweatin= No chills or Flushing Restless Observation: 1= Difficult to Sit Still Pupil Size: 1= Pupils >than Normal Bone or Joint Aches: 2= Severe Diffuse Aches Runny Nose/ Eye Tearin= Runny Nose/Eyes GI Upset > 30mins: 2= Nausea/Diarrhea Tremor Observation: 2= Slight Tremor Visible Yawning Observation: 2= >3x During Session Anxiety or Irritability: 2=Irritable/Anxious Goose Flesh Skin: 0=Smooth Skin COWS Score: 14 CIWA Nausea/Vomitin Muscle Tremors: 2 Anxiety: 2 Agitation: 2 Paroxysmal Sweats: No Perspiration Orientation: 0-Oriented Tacttile Disturbances: 1-Very Mild Itch/Numbness Auditory Disturbances: 2-Mild Harshness/Frighten Visual Disturbances: 0-None Headache: 2-Mild CIWA-Ar Total Score: 13
--- NOTE | 2020-04-13 12:02 | HP ---
COWS - Scale Resting Pulse: 0= [place] 80 or Below Sweatin= No chills or Flushing Restless Observation: 1= Difficult to Sit Still Pupil Size: 1= Pupils >than Normal Bone or Joint Aches: 2= Severe Diffuse Aches Runny Nose/ Eye Tearin= Runny Nose/Eyes GI Upset > 30mins: 2= Nausea/Diarrhea Tremor Observation: 2= Slight Tremor Visible Yawning Observation: 2= >3x During Session Anxiety or Irritability: 2=Irritable/Anxious Goose Flesh Skin: 0=Smooth Skin COWS Score: 14 CIWA Score Nausea/Vomitin Muscle Tremors: 2 Anxiety: 2 Agitation: 2 Paroxysmal Sweats: No Perspiration Orientation: 0-Oriented Tacttile Disturbances: 1-Very Mild Itch/Numbness Auditory Disturbances: 2-Mild Harshness/Frighten Visual Disturbances: 0-None Headache: 2-Mild CIWA-Ar Total Score: 13 - Admission Criteria OASAS Guidelines: Admission for Medically Managed Detox: Requires at least one of the followin. CIWA greater than 12 2. Seizures within the past 24 hours 3. Delirium tremens within the past 24 hours 4. Hallucinations within the past 24 hours 5. Acute intervention needed for co occurring medical disorder 6. Acute intervention needed for co occurring psychiatric disorder 7. Severe withdrawal that cannot be handled at a lower level of care (continued vomiting, continued diarrhea, abnormal vital signs) requiring intravenous medication and/or fluids 8. 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 Psych: Yes: Anxiety, Depression, Other (ptsd) - Past Surgical History Additional Past Surgical History: craniotomy post head injury in 2019 at [facility] - Smoking History Smoking history: Current every day smoker Have you smoked in the past 12 months: Yes Aproximately how many cigarettes per day: 5 - Alcohol/Substance Use Hx Alcohol Use: Yes History of Substance Use: reports: Cocaine, Heroin, Marijuana Date of Last Use: 04/12/20 - Social History Usual Living Arrangement: Yes: Other (homeless) ADL: Support Services Occupation: unemployed History of Recent Travel: No Other Social History: unemployed,nicotine dependence,no legal issue Admission ROS S - [facility] Chief Complaint: i need help to stop using drugs and alcohol Allergies/Adverse Reactions: Allergies Allergy/AdvReac Type Severity Reaction Status Date / Time tomato Allergy Severe Verified 04/13/20 12:34 No Known Drug Allergies Allergy Verified 04/13/20 12:34 History of Present Illness: this 54 years old male with polysubstance dependence heroin,cocaine,pcp,marijuana and alcohol dependence seeking detox, seen in [facility] last night last detox [facility] 03/2020 anxiety,depression,ptsd history of craniotomy left [address] [facility] sobriety 2 and half year homeless,unemployed,no legal issue Exam Limitations: No Limitations - Ebola screening Have you traveled outside of the country in the last 21 days: No Have you had contact with anyone from an Ebola affected area: No Have you been sick,other than usual withdrawal symptoms: No Do you have a fever: No - Review of Systems Constitutional: Night Sweats, Changes in sleep, Unintentional Wgt. Loss EENT: reports: Tearing, Nose Congestion Respiratory: reports: No Symptoms reported Cardiac: reports: No Symptoms Reported GI: reports: Nausea, Poor Appetite, Vomiting, Abdominal cramping : reports: No Symptoms Reported Musculoskeletal: reports: Back Pain, Joint Pain, Muscle Pain Integumentary: reports: Dryness Neuro: reports: No Symptoms reported Endocrine: reports: No Symptoms Reported Hematology: reports: No Symptoms Reported Psychiatric: reports: No Sypmtoms Reported, Judgement Intact, Mood/Affect Appropiate, Orientated x3, Anxious, Depressed Other Systems: Reviewed and Negative Patient History - Patient Medical History Hx Anemia: No Hx Asthma: No Hx Chronic Obstructive Pulmonary Disease (COPD): No Hx Cancer: No Hx Cardiac Disorders: No Hx Congestive Heart Failure: No Hx Hypertension: No Hx Hypercholesterolemia: No Hx Pacemaker: No HX Cerebrovascular Accident: No Hx Seizures: No Hx Dementia: No Hx Diabetes: No Hx Gastrointestinal Disorders: No Hx Liver Disease: No Hx Genitourinary Disorders: No Hx Sexually Transmitted Disorders: No Hx Renal Disease (ESRD): No Hx Thyroid Disease: No Hx Human Immunodeficiency Virus (HIV): No (last 2018 negative) Hx Hepatitis C: No Hx Depression: Yes (anxiety) Hx Suicide Attempt: No Hx Bipolar Disorder: No Hx Schizophrenia: No Other Medical History: no suicidal,no homicidal,ptsd,[facility],left craniotomy - Patient Surgical History Past Surgical History: No Hx Neurologic Surgery: Yes (left craniotomy post trauma 2019 at [facility]) Hx Cataract Extraction: No Hx Cardiac Surgery: No Hx Lung Surgery: No Hx Breast Surgery: No Hx Breast Biopsy: No Hx Abdominal Surgery: No Hx Appendectomy: No Hx Cholecystectomy: No Hx Genitourinary Surgery: No Hx Section: No Hx Orthopedic Surgery: No Anesthesia Reaction: No - PPD History Previous Implant?: Yes Documented Results: Negative w/o proof Implanted On Prior [facility] Admission?: Yes Date: 07/17/18 Results: 0 mm PPD to be Administered?: Yes - Smoking Cessation Smoking history: Current every day smoker Have you smoked in the past 12 months: Yes Aproximately how many cigarettes per day: 5 Cigars Per Day: 0 Hx Chewing Tobacco Use: No Initiated information on smoking cessation: Yes 'Breaking Loose' booklet given: 04/13/20 - Substance & Tx. History Hx Alcohol Use: Yes Hx Substance Use: Yes Substance Use Type: Alcohol, Cocaine, Heroin, Marijuana Hx Substance Use Treatment: Yes ([facility] 03/2020) - Substances abused Heroin Substance route: Inhalation Frequency: Daily Amount used: 10 bags Age of first use: 13 Date of last use: 04/13/20 Crack Substance route: Smoking Frequency: Daily Amount used: 50$ Age of first use: 13 Date of last use: 04/13/20 Alcohol Substance route: Oral Frequency: Daily Amount used: 1 pint of vodka Age of first use: 13 Date of last use: 04/12/20 PCP Substance route: Smoking Frequency: 1-2 times per week Amount used: 50$ Age of first use: 13 Date of last use: 04/12/20 Marijuana/Hashish Substance route: Smoking Frequency: Daily Amount used: 10$ Age of first use: 13 Date of last use: 04/12/20 Admission Physical Exam S - Physical General Appearance: Yes: Moderate Distress, Tremorous, Irritable, Sweating, Anxious HEENTM: Yes: Normocephalic, JEANNINE, Pharynx Normal Respiratory: Yes: Lungs Clear, Normal Breath Sounds, No Respiratory Distress Neck: Yes: Within Normal Limits, Supple, Trachea in good position Breast: Yes: Within Normal Limits Cardiology: Yes: Within Normal Limits, Regular Rhythm, Regular Rate, S1, S2 Abdominal: Yes: Within Normal Limits, Normal Bowel Sounds, Non Tender, Soft Genitourinary: Yes: Within Normal Limits Back: Yes: Muscle Spasm Musculoskeletal: Yes: Back pain, Joint Stiffness, Muscle Pain Extremities: Yes: Tremors Neurological: Yes: field technical assistant II-XII NML intact, Fully Oriented, Alert, Motor Strength 5/5 Integumentary: Yes: Dry Lymphatic: Yes: Within Normal Limits - Diagnostic (1) Opioid dependence with withdrawal Current Visit: Yes Status: Acute (2) Syncope Current Visit: No Status: Acute (3) Nicotine dependence Current Visit: Yes Status: Chronic Qualifiers: Nicotine product type: cigarettes Substance use status: in withdrawal Qualified Code(s): F17.213 - Nicotine dependence, cigarettes, with withdrawal (4) PTSD (post-traumatic stress disorder) Current Visit: No Status: Chronic (5) Renal calculi Current Visit: No Status: Suspected (6) Alcohol dependence with uncomplicated withdrawal Current Visit: No Status: Resolved (7) Anxiety and depression Current Visit: Yes Status: Acute (8) PTSD (post-traumatic stress disorder) Current Visit: No Status: Chronic (9) PCP (phencyclidine) abuse Current Visit: Yes Status: Acute (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
[2020-04-13] MEDS ORDERED: diazePAM 5 MG TABLET PO PRN (12:30)
[2020-04-13] MEDS ORDERED: cloNIDine HCL 0.1 MG TABLET PO PRN (12:30)
[2020-04-13] MEDS ORDERED: MAGNESIUM HYDROX 2400MG/30ML ORAL SUSPENSION 30 ML CUP PO PRN (12:30)
[2020-04-13] MEDS ORDERED: METHOCARBAMOL 500 MG TABLET PO PRN (12:30)
[2020-04-13] MEDS ORDERED: MENTHOL/PHENOL 1 EACH UD MM PRN (12:30)
[2020-04-13] MEDS ORDERED: ACETAMINOPHEN 325 MG TABLET (FP) PO PRN ×2 (12:30)
[2020-04-13] MEDS ORDERED: METHADONE HCL 10 MG TABLET (FOR DETOX USE ONLY) PO ONE (12:30)
[2020-04-13] MEDS ORDERED: NICOTINE POLACRILEX 2 MG GUM BUC PRN (12:30)
[2020-04-13] MEDS ORDERED: BISMUTH SUBSALICYLATE 524 MG/30 ML UD PO PRN (12:30)
[2020-04-13] MEDS ORDERED: MAGNESIUM CITRATE 300 ML BOTTLE PO PRN (12:30)
[2020-04-13] MEDS ORDERED: ONDANSETRON *ODT* 4 MG TABLET SL ONE (12:30)
[2020-04-13] MEDS ORDERED: MAG HYDROX/AL HYDROX/SIMETH 30 ML UNIT-DOSE CUP PO PRN (12:30)
[2020-04-13] MEDS ORDERED: IBUPROFEN 400 MG TABLET (FP) PO PRN (12:30)
[2020-04-13 12:55] VITALS: BMI 17.7
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
[2020-04-13] MEDS: hydrOXYzine PAMOATE 25 MG CAPSULE (FP) PO SCH ×3 (15:15→22:12)
[2020-04-13] MEDS: diazePAM 5 MG TABLET PO SCH ×2 (15:15→22:12)
[2020-04-13] MEDS: CEPHALEXIN MONOHYDRATE 500 MG CAPSULE (UD) PO SCH (17:18)
[2020-04-13] MEDS ORDERED: BACITRACIN 15 GM TUBE TOPICAL OINTMENT TP SCH (22:00)
[2020-04-13] MEDS: THIAMINE HCL 100 MG TABLET (FP) PO SCH (22:12)
[2020-04-13] MEDS: MELATONIN 5 MG TABLETS PO SCH (22:12)
[2020-04-13] MEDS: BACITRACIN 0.9 GM PACKET TP SCH (22:15)
[2020-04-14] MEDS: CEPHALEXIN MONOHYDRATE 500 MG CAPSULE (UD) PO SCH ×5 (00:02→23:09)
[2020-04-14] MEDS: hydrOXYzine PAMOATE 25 MG CAPSULE (FP) PO SCH ×5 (06:16→22:17)
[2020-04-14] MEDS: diazePAM 5 MG TABLET PO SCH ×3 (06:16→22:17)
[2020-04-14] MEDS ORDERED: METHADONE HCL 10 MG TABLET (FOR DETOX USE ONLY) ONE (09:04)
[2020-04-14] MEDS ORDERED: METHADONE HCL 5 MG TABLET (FOR DETOX USE ONLY) ONE (09:04)
--- NOTE | 2020-04-14 09:42 | PN ---
S CIWA - CIWA Score Nausea/Vomitin-Mild Nausea/No Vomiting Muscle Tremors: 2 Anxiety: 2 Agitation: 2 Paroxysmal Sweats: 1-Minimal Palms Moist Orientation: 0-Oriented Tacttile Disturbances: 1-Very Mild Itch/Numbness Auditory Disturbances: 0-None Visual Disturbances: 2-Mild Sensitivity Headache: 1-Very Mild CIWA-Ar Total Score: 12 S COWS - Scale Resting Pulse: 0= [place] 80 or Below Sweatin= Chills/Flushing Restless Observation: 0= Sits Still Pupil Size: 1= Pupils >than Normal Bone or Joint Aches: 2= Severe Diffuse Aches Runny Nose/ Eye Tearin= None GI Upset > 30mins: 2= Nausea/Diarrhea Tremor Observation of Outstretched Hands: 2= Slight Tremor Visible Yawning Observation: 0= None Anxiety or Irritability: 2=Irritable/Anxious Goose Flesh Skin: 0=Smooth Skin COWS Score: 10 S Progress Note (SOAP) Subjective: 54 years old male admitted on for alcohol and opiate withdrawal sx management treating with valium and methadone detox regiment feeling tired resting in bed limited conversation with staff Objective: 04/14/20 09:43 Vital Signs - 24 hr 04/13/20 04/13/20 04/13/20 12:41 13:44 16:33 Temperature 98.1 F 97.1 F L 97.1 F L Pulse Rate 63 56 L 54 L Respiratory 18 18 17 Rate Blood Pressure 131/80 154/85 131/73 O2 Sat by Pulse 100 Oximetry (%) 04/13/20 04/14/20 04/14/20 20:47 00:20 06:02 Temperature 98 F 98.1 F Pulse Rate 75 51 L Respiratory 18 18 18 Rate Blood Pressure 123/75 156/96 O2 Sat by Pulse 98 100 Oximetry (%) 04/14/20 04/14/20 06:30 08:30 Temperature 98.0 F Pulse Rate 64 Respiratory 18 16 Rate Blood Pressure 138/83 O2 Sat by Pulse Oximetry (%) lab pending Assessment: 04/14/20 09:55 alcohol and opiate withdrawal Plan: valium and methadone regiments
[2020-04-14] MEDS ORDERED: METHADONE (DETOX) 20 MG, METHADONE (DETOX) 5 MG PO ONE (10:00)
[2020-04-14] MEDS: PRENATAL VITAMINS W/ FOLIC ACID TABLET (FP) PO SCH (10:11)
[2020-04-14] MEDS: BACITRACIN 0.9 GM PACKET TP SCH ×2 (10:12→22:17)
[2020-04-14] MEDS: NICOTINE 7 MG/24 HOURS TOPICAL PATCH TD SCH (10:16)
--- NOTE | 2020-04-14 10:29 | EKG ---
Test Reason : Blood Pressure : / mmHG Vent. Rate : 077 BPM Atrial Rate : 077 BPM P-R Int : 158 ms QRS Dur : 078 ms QT Int : 376 ms P-R-T Axes : 081 080 073 degrees QTc Int : 425 ms NORMAL SINUS RHYTHM POSSIBLE LEFT ATRIAL ENLARGEMENT ANTEROSEPTAL INFARCT , AGE UNDETERMINED ABNORMAL ECG WHEN COMPARED WITH ECG OF 10-JUL-2018 21:10, ANTEROSEPTAL INFARCT IS NOW PRESENT T WAVE INVERSION NOW EVIDENT IN ANTERIOR LEADS Confirmed by Chalino Solitario ([id number]) on 04/14/2020 10:29:26 AM Referred By: Confirmed By:Chalino Solitario
[2020-04-14 11:14] LABS: POTASSIUM 4.2 mmol/L (3.5-5.1)
[2020-04-14 11:24] LABS: BILIRUBIN,TOTAL 0.6 mg/dL (0.2-1); BLOOD UREA NITROGEN 12.3 mg/dL (7-18); CALCIUM 8.2 mg/dL (8.5-10.1); CREATININE 0.8 mg/dL (0.55-1.3); TOT PROT 5.4 g/dl (6.4-8.2)
[2020-04-14 11:41] LABS: HEMATOCRIT 37.2 % (35.4-49); HEMOGLOBIN 12.4 GM/dL (11.7-16.9); MCH 32.6 pg (25.7-33.7); MCHC 33.4 g/dl (32.0-35.9); MEAN CELL VOLUME 97.7 fl (80-96); MEAN PLT VOLUME 9.9 fl (7.5-11.1); PLATELET COUNT 213 K/MM3 (134-434); RBC 3.81 M/mm3 (4.00-5.60); WHITE BLOOD COUNT 6.2 K/mm3 (4.0-10.0)
[2020-04-14] MEDS: MELATONIN 5 MG TABLETS PO SCH (22:17)
[2020-04-14] MEDS: THIAMINE HCL 100 MG TABLET (FP) PO SCH (22:17)
[2020-04-14] MEDS: SUVOREXANT 10 MG TABLET PO PRN (22:19)
[2020-04-15] MEDS: CEPHALEXIN MONOHYDRATE 500 MG CAPSULE (UD) PO SCH ×4 (06:09→23:02)
[2020-04-15] MEDS: diazePAM 5 MG TABLET PO SCH ×2 (06:09→17:42)
[2020-04-15] MEDS: hydrOXYzine PAMOATE 25 MG CAPSULE (FP) PO SCH ×5 (06:09→22:22)
--- NOTE | 2020-04-15 09:56 | PN ---
[facility] CIWA - CIWA Score Nausea/Vomitin-Mild Nausea/No Vomiting Muscle Tremors: 1-None Visible, but [place] Anxiety: 1-Mildly Anxious Agitation: 1-Slight > Activity Paroxysmal Sweats: 1-Minimal Palms Moist Orientation: 0-Oriented Tacttile Disturbances: 1-Very Mild Itch/Numbness Auditory Disturbances: 0-None Visual Disturbances: 1-Very Mild Sensitivity Headache: 2-Mild CIWA-Ar Total Score: 9 S COWS - Scale Resting Pulse: 2= [place] 101-120 Sweatin= No chills or [place]ushing Restless Observation: 0= Sits Still Pupil Size: 1= Pupils >than Normal Bone or Joint Aches: 1= Mild Discomfort (right knee) Runny Nose/ Eye Tearin= None GI Upset > 30mins: 2= Nausea/Diarrhea Tremor Observation of Outstretched Hands: 2= Slight Tremor Visible Yawning Observation: 0= None Anxiety or Irritability: 1=Feels Anxious/Irritable Goose Flesh Skin: 0=Smooth Skin COWS Score: 9 [facility] Progress Note (SOAP) Subjective: 54 years old male admitted on 04/13/20 for alcohol and opiate withdrawal sx management treating with valium and methadone detox regiments reports right knee skin breakdown right knee 2 cm in diameter well healed demarcated skin abrasion noted no swell none tender clean area with soap and water pad dry bacitracin apply cover with dry dressing no irritation to the area Objective: 04/15/20 09:55 Vital Signs - 24 hr 04/14/20 04/14/20 04/14/20 12:50 16:45 20:46 Temperature 97.8 F 97.5 F L 97.5 F L Pulse Rate 64 65 77 Respiratory 18 16 16 Rate Blood Pressure 134/81 137/89 125/76 O2 Sat by Pulse 99 Oximetry (%) 04/14/20 04/15/20 04/15/20 21:21 00:30 03:30 Temperature Pulse Rate Respiratory 18 20 Rate Blood Pressure O2 Sat by Pulse 99 Oximetry (%) 04/15/20 04/15/20 06:09 08:41 Temperature 97.5 F L 97.7 F Pulse Rate 53 L 109 H Respiratory 18 18 Rate Blood Pressure 142/82 128/88 O2 Sat by Pulse 98 Oximetry (%) Laboratory Tests 04/14/20 04/14/2004/14/20 07:00 07:00 07:00 WBC 6.2 RBC 3.81 L Hgb 12.4 Hct 37.2 MCV 97.7 H MCH 32.6 MCHC 33.4 RDW 14.0 Plt Count 213 MPV 9.9 Sodium 141 Potassium 4.2 Chloride 108 H Carbon Dioxide 28 Anion Gap 5 L BUN 12.3 Creatinine 0.8 Est GFR (CKD-EPI)AfAm 117.38 Est GFR (CKD-EPI)NonAf 101.27 Random Glucose 92 Calcium 8.2 L Total Bilirubin 0.6 AST 23 ALT 31 Alkaline Phosphatase 111 Total Protein 5.4 L Albumin 3.0 L Syphilis Serology Non-reactive 04/15/20 09:56 covid pending Assessment: 04/15/20 09:56 alcohol and opiate withdrawal Plan: valium and methadone regiments
[2020-04-15] MEDS ORDERED: METHADONE HCL 10 MG TABLET (FOR DETOX USE ONLY) PO ONE (10:00)
[2020-04-15] MEDS: BACITRACIN 0.9 GM PACKET TP SCH ×2 (10:22→22:21)
[2020-04-15] MEDS: NICOTINE 7 MG/24 HOURS TOPICAL PATCH TD SCH (10:22)
[2020-04-15] MEDS: PRENATAL VITAMINS W/ FOLIC ACID TABLET (FP) PO SCH (10:22)
[2020-04-15] MEDS ORDERED: MASKS NR ONE (12:13)
[2020-04-15] MEDS: SUVOREXANT 10 MG TABLET PO PRN (22:22)
[2020-04-15] MEDS: THIAMINE HCL 100 MG TABLET (FP) PO SCH (22:22)
[2020-04-15] MEDS: MELATONIN 5 MG TABLETS PO SCH (22:22)
[2020-04-16] MEDS: CEPHALEXIN MONOHYDRATE 500 MG CAPSULE (UD) PO SCH ×4 (05:23→23:02)
[2020-04-16] MEDS: hydrOXYzine PAMOATE 25 MG CAPSULE (FP) PO SCH ×5 (05:23→21:05)
[2020-04-16] MEDS ORDERED: diazePAM 5 MG TABLET PO ONE (06:00)
[2020-04-16] MEDS ORDERED: METHADONE HCL 10 MG TABLET (FOR DETOX USE ONLY) ONE (08:39)
[2020-04-16] MEDS ORDERED: METHADONE HCL 5 MG TABLET (FOR DETOX USE ONLY) ONE (08:39)
[2020-04-16] MEDS ORDERED: METHADONE (DETOX) 10 MG, METHADONE (DETOX) 5 MG PO ONE (10:00)
[2020-04-16] MEDS: BACITRACIN 0.9 GM PACKET TP SCH ×2 (10:30→21:05)
[2020-04-16] MEDS: PRENATAL VITAMINS W/ FOLIC ACID TABLET (FP) PO SCH (10:31)
[2020-04-16] MEDS: NICOTINE 7 MG/24 HOURS TOPICAL PATCH TD SCH (10:33)
--- NOTE | 2020-04-16 10:35 | PN ---
[facility] CIWA - CIWA Score Nausea/Vomitin-Mild Nausea/No Vomiting Muscle Tremors: 2 Anxiety: 3 Agitation: 3 Paroxysmal Sweats: No Perspiration Orientation: 0-Oriented Tacttile Disturbances: 0-None Auditory Disturbances: 0-None Visual Disturbances: 0-None Headache: 2-Mild CIWA-Ar Total Score: 11 [facility] COWS - Scale Resting Pulse: 1= [place] 81-100 Sweatin= No chills or [place]ushing Restless Observation: 0= Sits Still Pupil Size: 0= Normal to Room Light Bone or Joint Aches: 1= Mild Discomfort Runny Nose/ Eye Tearin= Nasal Congestion GI Upset > 30mins: 1= Stomach Cramp Tremor Observation of Outstretched Hands: 2= Slight Tremor Visible Yawning Observation: 1= 1-2x During Session Anxiety or Irritability: 2=Irritable/Anxious Goose Flesh Skin: 0=Smooth Skin COWS Score: 9 S Progress Note (SOAP) Subjective: alert,irritable,anxious,interrupted,pain in the body Objective: 04/16/20 10:34 Vital Signs Temperature 98.4 F 04/16/20 08:23 Pulse Rate 83 04/16/20 08:23 Respiratory Rate 20 04/16/20 08:23 Blood Pressure 154/83 04/16/20 08:23 O2 Sat by Pulse Oximetry (%) 99 04/16/20 06:05 Assessment: 04/16/20 10:34 withdrawal symptom Plan: continue detox methadone and valium regimen,requested cane for ambulation
--- NOTE | 2020-04-16 16:29 | PN ---
[facility] Progress Note Note: Psychiatry Attending's note : Called by nurse for renewal of belsomra. Chart reviewed. Medication is confirmed. No adverse effects. Informed consent secured. Belsomra 10 mg po hs prn. Renewed.
[2020-04-16] MEDS: MELATONIN 5 MG TABLETS PO SCH (21:05)
[2020-04-16] MEDS: THIAMINE HCL 100 MG TABLET (FP) PO SCH (21:05)
[2020-04-16] MEDS: SUVOREXANT 10 MG TABLET PO PRN (21:08)
[2020-04-16] MEDS ORDERED: SUVOREXANT 10 MG TABLET PO PRN (22:00)
[2020-04-17] MEDS: CEPHALEXIN MONOHYDRATE 500 MG CAPSULE (UD) PO SCH ×4 (05:34→23:04)
[2020-04-17] MEDS: hydrOXYzine PAMOATE 25 MG CAPSULE (FP) PO SCH ×5 (05:34→22:23)
--- NOTE | 2020-04-17 09:37 | PN ---
[facility] CIWA - CIWA Score Nausea/Vomitin-Mild Nausea/No Vomiting Muscle Tremors: 1-None Visible, but [place] Anxiety: 1-Mildly Anxious Agitation: 1-Slight > Activity Paroxysmal Sweats: No Perspiration Orientation: 0-Oriented Tacttile Disturbances: 0-None Auditory Disturbances: 0-None Visual Disturbances: 0-None Headache: 1-Very Mild CIWA-Ar Total Score: 5 S COWS - Scale Resting Pulse: 2= [place] 101-120 Sweatin= No chills or [place] Restless Observation: 0= Sits Still Pupil Size: 0= Normal to Room Light Bone or Joint Aches: 1= Mild Discomfort Runny Nose/ Eye Tearin= None GI Upset > 30mins: 1= Stomach Cramp Tremor Observation of Outstretched Hands: 1= Tremor [place], Not Seen Yawning Observation: 0= None Anxiety or Irritability: 2=Irritable/Anxious Goose Flesh Skin: 0=Smooth Skin COWS Score: 7 [facility] Progress Note (SOAP) Subjective: alert,irritable,anxious,interrupted sleep,body ache,stated urine today clear in color Objective: 04/17/20 09:36 Vital Signs Temperature 98.0 F 04/17/20 08:42 Pulse Rate 107 H 04/17/20 08:42 Respiratory Rate 16 04/17/20 08:42 Blood Pressure 128/78 04/17/20 08:42 O2 Sat by Pulse Oximetry (%) 96 04/17/20 06:17 awaiting for ua Assessment: 04/17/20 09:37 withdrawal symptom Plan: continue detox ,discharge in am
[2020-04-17] MEDS ORDERED: METHADONE HCL 10 MG TABLET (FOR DETOX USE ONLY) PO ONE (10:00)
[2020-04-17] MEDS: PRENATAL VITAMINS W/ FOLIC ACID TABLET (FP) PO SCH (10:29)
[2020-04-17] MEDS: NICOTINE 7 MG/24 HOURS TOPICAL PATCH TD SCH (10:30)
[2020-04-17] MEDS: BACITRACIN 0.9 GM PACKET TP SCH ×2 (10:30→22:23)
[2020-04-17 11:32] LABS: PH,URINE >= 9.0 (5.0-8.0); URINE APPEARANCE CLEAR; URINE BILIRUBIN NEGATIVE (NEGATIVE); URINE COLOR YELLOW; URINE GLUCOSE (UA) NEGATIVE (NEGATIVE); URINE KETONE NEGATIVE (NEGATIVE); URINE LEUK ESTERASE NEGATIVE (NEGATIVE); URINE NITRITE NEGATIVE (NEGATIVE); URINE PROTEIN NEGATIVE (NEGATIVE); URINE UROBILINOGEN 0.2 mg/dL (0.2-1.0)
--- NOTE | 2020-04-17 11:41 | PN ---
[facility] Progress Note Note: Laboratory Results - last 24 hr 04/17/20 09:40 Urine Color Yellow Urine Appearance Clear Urine pH >= 9.0 H Ur Specific [place] 1.010 Urine Protein Negative Urine Glucose (UA) Negative Urine Ketones Negative Urine Blood Negative Urine Nitrite Negative Urine Bilirubin Negative Urine Urobilinogen 0.2 Ur Leukocyte Esterase Negative urinalysis noted
[2020-04-17] MEDS: THIAMINE HCL 100 MG TABLET (FP) PO SCH (22:23)
[2020-04-17] MEDS: MELATONIN 5 MG TABLETS PO SCH (22:24)
[2020-04-18] MEDS: hydrOXYzine PAMOATE 25 MG CAPSULE (FP) PO SCH (05:15)
[2020-04-18] MEDS: CEPHALEXIN MONOHYDRATE 500 MG CAPSULE (UD) PO SCH (05:15)
[2020-04-18] MEDS ORDERED: METHADONE HCL 5 MG TABLET (FOR DETOX USE ONLY) PO ONE (06:00)
[2020-04-18 08:54] VITALS: BP 117/71; PULSE 105; TEMP 97.3
--- NOTE | 2020-04-18 09:35 | PN ---
[facility] CIWA - CIWA Score Nausea/Vomitin-No Nausea/No Vomiting Muscle Tremors: None Anxiety: 1-Mildly Anxious Agitation: 0-Normal Activity Paroxysmal Sweats: No Perspiration Orientation: 0-Oriented Tacttile Disturbances: 0-None Auditory Disturbances: 0-None Visual Disturbances: 0-None Headache: 0-None Present CIWA-Ar Total Score: 1 S COWS - Scale Resting Pulse: 1= [place] 81-100 Sweatin= No chills or [place] Restless Observation: 0= Sits Still Pupil Size: 0= Normal to Room Light Bone or Joint Aches: 0= None Runny Nose/ Eye Tearin= None GI Upset > 30mins: 0= None Tremor Observation of Outstretched Hands: 0= None Yawning Observation: 0= None Anxiety or Irritability: 1=Feels Anxious/Irritable Goose Flesh Skin: 0=Smooth Skin COWS Score: 2 [facility] Progress Note (SOAP) Subjective: alert,no complaint Objective: 04/18/20 09:49 Vital Signs Temperature 97.3 F L 04/18/20 08:41 Pulse Rate 105 H 04/18/20 08:41 Respiratory Rate 16 04/18/20 08:41 Blood Pressure 117/71 04/18/20 08:41 O2 Sat by Pulse Oximetry (%) 99 04/18/20 05:08 04/18/20 09:50 Laboratory Last Values WBC 6.2 K/mm3 (4.0-10.0) 04/14/20 07:00 RBC 3.81 M/mm3 (4.00-5.60) L 04/14/20 07:00 Hgb 12.4 GM/dL (11.7-16.9) 04/14/20 07:00 Hct 37.2 % (35.4-49) 04/14/20 07:00 MCV 97.7 fl (80-96) H 04/14/20 07:00 MCH 32.6 pg (25.7-33.7) 04/14/20 07:00 MCHC 33.4 g/dl (32.0-35.9) 04/14/20 07:00 RDW 14.0 % (11.9-15.9) 04/14/20 07:00 Plt Count 213 K/MM3 (134-434) 04/14/20 07:00 MPV 9.9 fl (7.5-11.1) 04/14/20 07:00 Sodium 141 mmol/L (136-145) 04/14/20 07:00 Potassium 4.2 mmol/L (3.5-5.1) 04/14/20 07:00 Chloride 108 mmol/L (98-107) H 04/14/20 07:00 Carbon Dioxide 28 mmol/L (21-32) 04/14/20 07:00 Anion Gap 5 MMOL/L (8-16) L 04/14/20 07:00 BUN 12.3 mg/dL (7-18) 04/14/20 07:00 Creatinine 0.8 mg/dL (0.55-1.3) 04/14/20 07:00 Est GFR (CKD-EPI)AfAm 117.38 04/14/20 07:00 Est GFR (CKD-EPI)NonAf 101.27 04/14/20 07:00 Random Glucose 92 mg/dL (74-106) 04/14/20 07:00 Calcium 8.2 mg/dL (8.5-10.1) L 04/14/20 07:00 Total Bilirubin 0.6 mg/dL (0.2-1) 04/14/20 07:00 AST 23 U/L (15-37) 04/14/20 07:00 ALT 31 U/L (13-61) 04/14/20 07:00 Alkaline Phosphatase 111 U/L (45-117) 04/14/20 07:00 Total Protein 5.4 g/dl (6.4-8.2) L 04/14/20 07:00 Albumin 3.0 g/dl (3.4-5.0) L 04/14/20 07:00 Urine Color Yellow 04/17/20 09:40 Urine Appearance Clear 04/17/20 09:40 Urine pH >= 9.0 (5.0-8.0) H 04/17/20 09:40 Ur Specific [place] 1.010 (1.010-1.035) 04/17/20 09:40 Urine Protein Negative (NEGATIVE) 04/17/20 09:40 Urine Glucose (UA) Negative (NEGATIVE) 04/17/20 09:40 Urine Ketones Negative (NEGATIVE) 04/17/20 09:40 Urine Blood Negative (NEGATIVE) 04/17/20 09:40 Urine Nitrite Negative (NEGATIVE) 04/17/20 09:40 Urine Bilirubin Negative (NEGATIVE) 04/17/20 09:40 Urine Urobilinogen 0.2 mg/dL (0.2-1.0) 04/17/20 09:40 Ur Leukocyte Esterase Negative (NEGATIVE) 04/17/20 09:40 Syphilis Serology Non-reactive (NONREACTIVE) 04/14/20 07:00 COVID-19 ([facility]) Not detected (Not Detected) 04/13/20 13:15 Assessment: 04/18/20 09:51 detox completed,no withdrawal symptom, Plan: discharge today,follow up with after care program as arrangement
--- NOTE | 2020-04-18 10:06 | DS ---
[facility] Detox Discharge Summary Admission Date: 04/13/20 Discharge Date: 04/18/20 - History Present History: Alcohol Dependence, Cannabis Dependence, Cocaine Dependence, Opioid Dependence, Pcp Dependence Additional Comments: alert,oriented x3 ,ambulation with cane without difficulty lung clear on auscultation bilaterally abdomen soft,no distension,no pain or tenderness no edema of legs detox completed,no withdrawal symptom total time of discharge 35 minutes follow up with after care program as arrangement promesa Pertinent Past History: ptsd skin infection ambulation with cane kidney stones - Physical Exam Results Vital Signs: Vital Signs Temperature 97.3 F L 04/18/20 08:41 Pulse Rate 105 H 04/18/20 08:41 Respiratory Rate 16 04/18/20 08:41 Blood Pressure 117/71 04/18/20 08:41 O2 Sat by Pulse Oximetry (%) 99 04/18/20 05:08 Pertinent Admission Physical Exam Findings: withdrawal signs and symptom Laboratory Last Values WBC 6.2 K/mm3 (4.0-10.0) 04/14/20 07:00 RBC 3.81 M/mm3 (4.00-5.60) L 04/14/20 07:00 Hgb 12.4 GM/dL (11.7-16.9) 04/14/20 07:00 Hct 37.2 % (35.4-49) 04/14/20 07:00 MCV 97.7 fl (80-96) H 04/14/20 07:00 MCH 32.6 pg (25.7-33.7) 04/14/20 07:00 MCHC 33.4 g/dl (32.0-35.9) 04/14/20 07:00 RDW 14.0 % (11.9-15.9) 04/14/20 07:00 Plt Count 213 K/MM3 (134-434) 04/14/20 07:00 MPV 9.9 fl (7.5-11.1) 04/14/20 07:00 Sodium 141 mmol/L (136-145) 04/14/20 07:00 Potassium 4.2 mmol/L (3.5-5.1) 04/14/20 07:00 Chloride 108 mmol/L (98-107) H 04/14/20 07:00 Carbon Dioxide 28 mmol/L (21-32) 04/14/20 07:00 Anion Gap 5 MMOL/L (8-16) L 04/14/20 07:00 BUN 12.3 mg/dL (7-18) 04/14/20 07:00 Creatinine 0.8 mg/dL (0.55-1.3) 04/14/20 07:00 Est GFR (CKD-EPI)AfAm 117.38 04/14/20 07:00 Est GFR (CKD-EPI)NonAf 101.27 04/14/20 07:00 Random Glucose 92 mg/dL (74-106) 04/14/20 07:00 Calcium 8.2 mg/dL (8.5-10.1) L 04/14/20 07:00 Total Bilirubin 0.6 mg/dL (0.2-1) 04/14/20 07:00 AST 23 U/L (15-37) 04/14/20 07:00 ALT 31 U/L (13-61) 04/14/20 07:00 Alkaline Phosphatase 111 U/L (45-117) 04/14/20 07:00 Total Protein 5.4 g/dl (6.4-8.2) L 04/14/20 07:00 Albumin 3.0 g/dl (3.4-5.0) L 04/14/20 07:00 Urine Color Yellow 04/17/20 09:40 Urine Appearance Clear 04/17/20 09:40 Urine pH >= 9.0 (5.0-8.0) H 04/17/20 09:40 Ur Specific [place] 1.010 (1.010-1.035) 04/17/20 09:40 Urine Protein Negative (NEGATIVE) 04/17/20 09:40 Urine Glucose (UA) Negative (NEGATIVE) 04/17/20 09:40 Urine Ketones Negative (NEGATIVE) 04/17/20 09:40 Urine Blood Negative (NEGATIVE) 04/17/20 09:40 Urine Nitrite Negative (NEGATIVE) 04/17/20 09:40 Urine Bilirubin Negative (NEGATIVE) 04/17/20 09:40 Urine Urobilinogen 0.2 mg/dL (0.2-1.0) 04/17/20 09:40 Ur Leukocyte Esterase Negative (NEGATIVE) 04/17/20 09:40 Syphilis Serology Non-reactive (NONREACTIVE) 04/14/20 07:00 COVID-19 ([facility]) Not detected (Not Detected) 04/13/20 13:15 - Treatment Hospital Course: Detox Protocol Followed, Detoxed Safely, Responded well, Discharged Condition Good, Rehab Referral Accepted Patient has Accepted a Rehab Referral to: [facility] - Medication Discharge Medications: Ambulatory Orders Ammonium Lactate Cream [Lac-Hydrin 12% Cream -] 1 applic TP BID 07/15/18 [place] 0.77% Cream Kit 1 applic TP BID 07/15/18 - Diagnosis (1) Opioid dependence with withdrawal Current Visit: Yes Status: Acute (2) Syncope Current Visit: No Status: Acute (3) Nicotine dependence Current Visit: Yes Status: Chronic Qualifiers: Nicotine product type: cigarettes Substance use status: in withdrawal Qualified Code(s): F17.213 - Nicotine dependence, cigarettes, with withdrawal (4) PTSD (post-traumatic stress disorder) Current Visit: No Status: Chronic (5) Renal calculi Current Visit: No Status: Suspected (6) Alcohol dependence with uncomplicated withdrawal Current Visit: No Status: Resolved (7) Anxiety and depression Current Visit: Yes Status: Acute (8) PTSD (post-traumatic stress disorder) Current Visit: No Status: Chronic (9) PCP (phencyclidine) abuse Current Visit: Yes Status: Acute (10) Mild methadone abuse Current Visit: Yes Status: Acute (11) Skin infection Current Visit: Yes Status: Acute - AMA Did Patient Leave Against Medical Advice: No
== END 2020-04-18 08:51 | disposition home or self-care (01) | DRG 773 ==
LOC: YASAS 11:02 → Y3N 12:41
PROVIDERS: ADMIT Allergy & Immunology; ATTEND Allergy & Immunology
PROC: HZ2ZZZZ Detoxification Services for Substance Abuse Treatment (ICD-10-PCS; principal; 2020-04-13)
DX: F10.230 Alcohol dependence with withdrawal, uncomplicated (principal); F11.23 Opioid dependence with withdrawal; F14.20 Cocaine dependence, uncomplicated; F16.10 Hallucinogen abuse, uncomplicated; F12.20 Cannabis dependence, uncomplicated; F17.213 Nicotine dependence, cigarettes, with withdrawal; F19.282 Other psychoactive substance dependence with psychoactive substance-induced sleep disorder; F43.10 Post-traumatic stress disorder, unspecified; F41.8 Other specified anxiety disorders; F32.9 Major depressive disorder, single episode, unspecified; L08.9 Local infection of the skin and subcutaneous tissue, unspecified; Z87.442 Personal history of urinary calculi; Z87.820 Personal history of traumatic brain injury; Z56.0 Unemployment, unspecified; Z59.0 Homelessness; Z91.018 Allergy to other foods; Z98.890 Other specified postprocedural states
CPT/HCPCS: 36415; 80053; 81003; 85027; 86780; 93005; 93010; Q0162; U0003

== ENCOUNTER 2020-06-01 10:05 | Inpatient (IN) | payer OTHER ==
--- NOTE | 2020-06-01 13:19 | BHS.RME ---
Substance Use & Tx History - Substance Use History Alcohol Substance amount: 1 pint Frequency of use: Daily Substance route: Oral Date of Last Use: 05/31/20 Methadone Substance amount: 120mg Frequency of use: Daily Substance route: Oral Date of Last Use: 05/31/20 Heroin Substance amount: 5-10 bags Frequency of use: Daily Substance route: Inhalation (ex: sniffing or snorting) Date of Last Use: 05/31/20 Cocaine-Crack Substance amount: $50 Frequency of use: Daily Substance route: Smoking Date of Last Use: 05/31/20 Marijuana/Hashish Substance amount: $20 Frequency of use: Daily Substance route: Smoking Date of Last Use: 05/31/20 - Last Treatment Date of last treatment: 04/13/2020 Treatment type: Substance Use Disorder (XIMENA) Where was last treatment: Detox Physical/Psych/Mental Status - Behavior General Behavior: Increased activity (restlessness, agitation) Eye Contact: Normal Other Behaviors: Mannerisms - Cooperativeness Cooperativeness: Cooperative - Thinking Thought Processes: Tight, Logical, Goal Directed Thought content: Future oriented - Physical Health Problems Is patient presently having any pain?: Yes Does patient presently have any injuries (include location): No Does patient currently have a fever: No COWS - Scale Resting Pulse: 0= [place] 80 or Below Sweatin= Chills/Flushing Restless Observation: 1= Difficult to Sit Still Pupil Size: 1= Pupils >than Normal Bone or Joint Aches: 2= Severe Diffuse Aches Runny Nose/ Eye Tearin= Runny Nose/Eyes GI Upset > 30mins: 2= Nausea/Diarrhea Tremor Observation: 1= Tremor [place], Not Seen Yawning Observation: 1= 1-2x During Session Anxiety or Irritability: 1=Feels Anxious/Irritable Goose Flesh Skin: 0=Smooth Skin COWS Score: 12 CIWA Nausea/Vomitin Muscle Tremors: 2 Anxiety: 2 Agitation: 2 Paroxysmal Sweats: 2 Orientation: 0-Oriented Tacttile Disturbances: 1-Very Mild Itch/Numbness Auditory Disturbances: 1-Very Mild Visual Disturbances: 1-Very Mild Sensitivity Headache: 2-Mild CIWA-Ar Total Score: 15
--- NOTE | 2020-06-01 13:24 | HP ---
COWS - Scale Resting Pulse: 0= [place] 80 or Below Sweatin= Chills/Flushing Restless Observation: 1= Difficult to Sit Still Pupil Size: 1= Pupils >than Normal Bone or Joint Aches: 2= Severe Diffuse Aches Runny Nose/ Eye Tearin= Runny Nose/Eyes GI Upset > 30mins: 2= Nausea/Diarrhea Tremor Observation: 1= Tremor [place], Not Seen Yawning Observation: 1= 1-2x During Session Anxiety or Irritability: 1=Feels Anxious/Irritable Goose Flesh Skin: 0=Smooth Skin COWS Score: 12 CIWA Score Nausea/Vomitin Muscle Tremors: 2 Anxiety: 2 Agitation: 2 Paroxysmal Sweats: 2 Orientation: 0-Oriented Tacttile Disturbances: 1-Very Mild Itch/Numbness Auditory Disturbances: 1-Very Mild Visual Disturbances: 1-Very Mild Sensitivity Headache: 2-Mild CIWA-Ar Total Score: 15 - Admission Criteria [facility]ASAS Guidelines: Admission for Medically Managed Detox: Requires at least one of the followin. CIWA greater than 12 2. Seizures within the past 24 hours 3. Delirium tremens within the past 24 hours 4. Hallucinations within the past 24 hours 5. Acute intervention needed for co occurring medical disorder 6. Acute intervention needed for co occurring psychiatric disorder 7. Severe withdrawal that cannot be handled at a lower level of care (continued vomiting, continued diarrhea, abnormal vital signs) requiring intravenous medication and/or fluids 8. 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 Psych: Yes: Anxiety, Depression, Other (ptsd) - Smoking History Smoking history: Current every day smoker Have you smoked in the past 12 months: Yes Aproximately how many cigarettes per day: 5 - Alcohol/Substance Use Hx Alcohol Use: Yes History of Substance Use: reports: Cocaine, Heroin, Marijuana Date of Last Use: 04/12/20 - Social History ADL: Support Services Occupation: unemployed History of Recent Travel: No Admission ROS S - HPI Chief Complaint: I need detox Allergies/Adverse Reactions: Allergies Allergy/AdvReac Type Severity Reaction Status Date / Time tomato Allergy Severe Verified 04/13/20 12:34 No Known Drug Allergies Allergy Verified 04/13/20 12:34 History of Present Illness: Patient is a 55 years old man who presents for detox, his last treatment was initiated on 04/13/2020. He reports several overdoses, last episode was about a year ago. He denies seizures or blackouts. Exam Limitations: No Limitations - Ebola screening Have you traveled outside of the country in the last 21 days: No Have you had contact with anyone from an Ebola affected area: No Have you been sick,other than usual withdrawal symptoms: No Do you have a fever: No - Review of Systems Constitutional: Chills, Loss of Appetite, Changes in sleep EENT: reports: Blurred Vision, Nose Congestion Respiratory: reports: No Symptoms reported Cardiac: reports: No Symptoms Reported GI: reports: Nausea, Poor Appetite, Abdominal cramping : reports: No Symptoms Reported Musculoskeletal: reports: Back Pain, Muscle Pain, Muscle Weakness Integumentary: reports: Sweating Neuro: reports: Headache, Numbness, Tremors Endocrine: reports: No Symptoms Reported Hematology: reports: No Symptoms Reported Psychiatric: reports: Anxious, Depressed Other Systems: Reviewed and Negative Patient History - Patient Medical History Hx Anemia: No Hx Asthma: No Hx Chronic Obstructive Pulmonary Disease (COPD): No Hx Cancer: No Hx Cardiac Disorders: No Hx Congestive Heart Failure: No Hx Hypertension: No Hx Hypercholesterolemia: No Hx Pacemaker: No HX Cerebrovascular Accident: No Hx Seizures: No Hx Dementia: No Hx Diabetes: No Hx Gastrointestinal Disorders: No Hx Liver Disease: No Hx Genitourinary Disorders: No Hx Sexually Transmitted Disorders: No Hx Renal Disease (ESRD): No Hx Thyroid Disease: No Hx Human Immunodeficiency Virus (HIV): No Hx Hepatitis C: No Hx Depression: Yes (anxiety) Hx Suicide Attempt: No Hx Bipolar Disorder: No Hx Schizophrenia: No - Patient Surgical History Past Surgical History: No Hx Neurologic Surgery: Yes (left craniotomy post trauma 2019 at [facility]) Hx Cataract Extraction: No Hx Cardiac Surgery: No Hx Lung Surgery: No Hx Breast Surgery: No Hx Breast Biopsy: No Hx Abdominal Surgery: No Hx Appendectomy: No Hx Cholecystectomy: No Hx Genitourinary Surgery: No Hx Section: No Hx Orthopedic Surgery: No Other Surgical History: RENAL CALCULI Anesthesia Reaction: No - PPD History Previous Implant?: Yes Documented Results: Negative w/proof Implanted On Prior R Admission?: Yes Date: 07/17/18 Results: 0 mm PPD to be Administered?: Yes - Smoking Cessation Smoking history: Current every day smoker Have you smoked in the past 12 months: Yes Aproximately how many cigarettes per day: 5 Cigars Per Day: 0 Hx Chewing Tobacco Use: No Initiated information on smoking cessation: Yes 'Breaking Loose' booklet given: 06/01/20 - Substances abused Alcohol Substance route: Oral Frequency: 1-2 times per week Amount used: 1 pint of cielo Age of first use: 13 Date of last use: 05/31/20 Crack Substance route: Smoking Frequency: Daily Amount used: $60-100/day Age of first use: 24 Date of last use: 05/31/20 Other Other (specify): street Methadone 120mg Substance route: Oral Frequency: 3-6 times per week Amount used: 120mg Age of first use: 53 Date of last use: 05/31/20 Heroin Substance route: Inhalation Frequency: 3-6 times per week Amount used: 5bags Age of first use: 13 Date of last use: 05/31/20 Admission Physical Exam [facility] - Physical General Appearance: Yes: No Apparent Distress HEENTM: Yes: Normocephalic, Normal Voice, Pharynx Normal, Other (missing some teeth, scar to scalp) Respiratory: Yes: Chest Non-Tender, Lungs Clear, Normal Breath Sounds, No Respiratory Distress, No Accessory Muscle Use Neck: Yes: No masses,lesions,Nodules, Supple Breast: Yes: Breast Exam Deferred Cardiology: Yes: Regular Rhythm, Regular Rate, S1, S2 Abdominal: Yes: Normal Bowel Sounds, Non Tender, Soft Genitourinary: Yes: Within Normal Limits Back: Yes: Normal Inspection Musculoskeletal: Yes: full range of Motion, Gait Steady Extremities: Yes: Normal Capillary Refill, Normal Range of Motion, Tremors Neurological: Yes: Alert, Normal Mood/Affect, Normal Response Integumentary: Yes: Cold, Other (dry scabs on knees and elbows) Lymphatic: Yes: Within Normal Limits - Diagnostic (1) Cocaine dependence Current Visit: Yes Status: Acute Qualifiers: Substance use status: uncomplicated Qualified Code(s): F14.20 - Cocaine dependence, uncomplicated (2) Opioid dependence with withdrawal Current Visit: Yes Status: Acute (3) Nicotine dependence Current Visit: Yes Status: Chronic Qualifiers: Nicotine product type: cigarettes Substance use status: uncomplicated Qualified Code(s): F17.210 - Nicotine dependence, cigarettes, uncomplicated (4) Alcohol dependence with uncomplicated withdrawal Current Visit: Yes Status: Acute (5) Cannabis dependence Current Visit: Yes Status: Chronic (6) Falls frequently Current Visit: Yes Status: Chronic Cleared for Admission [facility] - Detox or Rehab [facility] Level of Care: Medically Managed Detox Regimen/Protocol: Methadone/Valium Claeared for Rehab Admission: No Breathalyzer - Breathalyzer Breathalyzer: 0 Urine Drug Screen - Test Device Lot number: [id number] Expiration date: 01/15/22 - Control Is test valid?: Yes - Results Drug screen NEGATIVE: No Urine drug screen results: THC-Marijuana, TONA-Cocaine, FEN-Fentanyl, MOP- Opiates, MTD-Methadone Inpatient Rehab Admission - Rehab Decision to Admit Inpatient rehab admission?: No
[2020-06-01] MEDS ORDERED: MAGNESIUM CITRATE 300 ML BOTTLE PO PRN (13:25)
[2020-06-01] MEDS ORDERED: METHADONE HCL 10 MG TABLET (FOR DETOX USE ONLY) PO ONE (13:25)
[2020-06-01] MEDS ORDERED: MENTHOL/PHENOL 1 EACH UD MM PRN (13:25)
[2020-06-01] MEDS ORDERED: ACETAMINOPHEN 325 MG TABLET (FP) PO PRN ×2 (13:25)
[2020-06-01] MEDS ORDERED: cloNIDine HCL 0.1 MG TABLET PO PRN (13:25)
[2020-06-01] MEDS ORDERED: diazePAM 5 MG TABLET PO PRN (13:25)
[2020-06-01] MEDS ORDERED: MAGNESIUM HYDROX 2400MG/30ML ORAL SUSPENSION 30 ML CUP PO PRN (13:25)
[2020-06-01] MEDS ORDERED: MAG HYDROX/AL HYDROX/SIMETH 30 ML UNIT-DOSE CUP PO PRN (13:25)
[2020-06-01] MEDS ORDERED: BISMUTH SUBSALICYLATE 524 MG/30 ML UD PO PRN (13:25)
[2020-06-01] MEDS ORDERED: IBUPROFEN 400 MG TABLET (FP) PO PRN (13:25)
[2020-06-01] MEDS ORDERED: NICOTINE POLACRILEX 2 MG GUM BUC PRN (13:25)
[2020-06-01 13:59] VITALS: BMI 17.9
[2020-06-01] MEDS: diazePAM 5 MG TABLET PO SCH ×2 (15:00→22:49)
[2020-06-01] MEDS: THIAMINE HCL 100 MG TABLET (FP) PO SCH (22:49)
[2020-06-01] MEDS: MELATONIN 5 MG TABLETS PO SCH (22:49)
[2020-06-02] MEDS: diazePAM 5 MG TABLET PO SCH ×3 (06:32→22:46)
[2020-06-02] MEDS: METHOCARBAMOL 500 MG TABLET PO PRN ×2 (09:41→22:46)
[2020-06-02] MEDS: PRENATAL VITAMINS W/ FOLIC ACID TABLET (FP) PO SCH (09:42)
[2020-06-02] MEDS: NICOTINE 7 MG/24 HOURS TOPICAL PATCH TD SCH (09:43)
[2020-06-02] MEDS ORDERED: METHADONE HCL 5 MG TABLET (FOR DETOX USE ONLY) PO ONE (10:00)
[2020-06-02 10:44] LABS: BILIRUBIN,TOTAL 0.4 mg/dL (0.2-1); CALCIUM 8.6 mg/dL (8.5-10.1); CREATININE 0.9 mg/dL (0.55-1.3); TOT PROT 5.7 g/dl (6.4-8.2)
[2020-06-02 10:49] LABS: HEMOGLOBIN 11.6 GM/dL (11.7-16.9); WHITE BLOOD COUNT 5.5 K/mm3 (4.0-10.0)
[2020-06-02 10:52] LABS: HEMATOCRIT 35.4 % (35.4-49); MCH 32.3 pg (25.7-33.7); MCHC 32.8 g/dl (32.0-35.9); MEAN CELL VOLUME 98.4 fl (80-96); MEAN PLT VOLUME 8.9 fl (7.5-11.1); PLATELET COUNT 279 K/MM3 (134-434); RDW 13.9 % (11.9-15.9)
--- NOTE | 2020-06-02 12:53 | PN ---
[facility] CIWA - CIWA Score Nausea/Vomitin-Mild Nausea/No Vomiting Muscle Tremors: 3 Anxiety: 4-Mod. Anxious/Guarded Agitation: 3 Paroxysmal Sweats: No Perspiration Orientation: 0-Oriented Tacttile Disturbances: 0-None Auditory Disturbances: 0-None Visual Disturbances: 0-None Headache: 0-None Present CIWA-Ar Total Score: 11 S COWS - Scale Resting Pulse: 0= MS 80 or Below Sweatin= No chills or Flushing Restless Observation: 0= Sits Still Pupil Size: 1= Pupils >than Normal Bone or Joint Aches: 1= Mild Discomfort Runny Nose/ Eye Tearin= None GI Upset > 30mins: 2= Nausea/Diarrhea Tremor Observation of Outstretched Hands: 2= Slight Tremor Visible Yawning Observation: 0= None Anxiety or Irritability: 2=Irritable/Anxious Goose Flesh Skin: 3=Piloerection COWS Score: 11 [facility] Progress Note (SOAP) Subjective: 55 years old male was admitted on 06/01/20 for alcohol and opiate withdrawal sx management treating with valium and methadone detox regiment bmi 18 ensure 120 ml po tid with meals mr sullivan prefers to stay in bed resting feels tired limited conversation with staff Objective: 06/02/20 12:57 Vital Signs - 24 hr 06/01/20 06/01/20 06/01/20 13:52 14:58 20:04 Temperature 96.2 F L 97.1 F L 97.1 F L Pulse Rate 54 L 63 62 Respiratory 18 18 18 Rate Blood Pressure 145/82 127/77 128/75 O2 Sat by Pulse 100 97 Oximetry (%) 06/02/20 06/02/20 05:35 08:51 Temperature 97.3 F L 97.5 F L Pulse Rate 48 L 70 Respiratory 20 16 Rate Blood Pressure 138/74 131/73 O2 Sat by Pulse 100 Oximetry (%) Laboratory Tests 06/02/20 06/02/20 06/02/20 07:45 07:45 08:00 WBC 5.5 RBC 3.60 L Hgb 11.6 L Hct 35.4 MCV 98.4 H MCH 32.3 MCHC 32.8 RDW 13.9 Plt Count 279 D MPV 8.9 D Sodium 141 Potassium 4.0 Chloride 105 Carbon Dioxide 33 H Anion Gap 3 L BUN 19.0 H Creatinine 0.9 Est GFR (CKD-EPI)AfAm 111.05 Est GFR (CKD-EPI)NonAf 95.81 Random Glucose 86 Calcium 8.6 Total Bilirubin 0.4 AST 24 ALT 27 Alkaline Phosphatase 120 H Total Protein 5.7 L Albumin 3.0 L Syphilis Serology Non-reactive covid pending Assessment: 06/02/20 12:58 alcohol and opiate withdrawal Plan: valium and methadone regiments
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
[2020-06-02] MEDS: THIAMINE HCL 100 MG TABLET (FP) PO SCH (22:46)
[2020-06-02] MEDS: MELATONIN 5 MG TABLETS PO SCH (22:46)
[2020-06-03] MEDS: diazePAM 5 MG TABLET PO SCH ×2 (07:57→17:58)
[2020-06-03] MEDS ORDERED: METHADONE HCL 10 MG TABLET (FOR DETOX USE ONLY) PO ONE (10:00)
[2020-06-03] MEDS: PRENATAL VITAMINS W/ FOLIC ACID TABLET (FP) PO SCH (10:41)
[2020-06-03] MEDS: NICOTINE 7 MG/24 HOURS TOPICAL PATCH TD SCH (10:41)
--- NOTE | 2020-06-03 15:20 | PN ---
S CIWA - CIWA Score Nausea/Vomitin-Mild Nausea/No Vomiting Muscle Tremors: 2 Anxiety: 2 Agitation: 0-Normal Activity Paroxysmal Sweats: No Perspiration Orientation: 0-Oriented Tacttile Disturbances: 0-None Auditory Disturbances: 0-None Visual Disturbances: 2-Mild Sensitivity Headache: 0-None Present CIWA-Ar Total Score: 7 S COWS - Scale Resting Pulse: 0= [place] 80 or Below Sweatin= No chills or Flushing Restless Observation: 0= Sits Still Pupil Size: 0= Normal to Room Light Bone or Joint Aches: 1= Mild Discomfort Runny Nose/ Eye Tearin= None GI Upset > 30mins: 2= Nausea/Diarrhea Tremor Observation of Outstretched Hands: 2= Slight Tremor Visible Yawning Observation: 0= None Anxiety or Irritability: 2=Irritable/Anxious Goose Flesh Skin: 0=Smooth Skin COWS Score: 7 S Progress Note (SOAP) Subjective: 55 years old male was admitted on 06/01/20 for alcohol and opiate withdrawal sx management treating with valium and methadone detox regiment feels better today less tremor mild general body aches discussing aftercare with staff mr sullivan prefers to go to [facility] for alcohol and opiate abuse treatment Objective: 06/03/20 15:22 Vital Signs - 24 hr 06/02/20 06/02/20 06/03/20 16:48 20:55 06:26 Temperature 98.4 F 97.8 F Pulse Rate 73 81 Respiratory 18 18 Rate Blood Pressure 107/61 128/76 O2 Sat by Pulse 99 98 100 Oximetry (%) 06/03/20 06/03/20 06/03/20 08:47 09:09 12:42 Temperature 98.0 F 97.8 F 98.9 F Pulse Rate 84 97 H 70 Respiratory 18 18 18 Rate Blood Pressure 111/65 121/68 136/83 O2 Sat by Pulse 99 Oximetry (%) Laboratory Tests 06/01/20 06/02/20 06/02/20 13:52 07:45 07:45 WBC 5.5 RBC 3.60 L Hgb 11.6 L Hct 35.4 MCV 98.4 H MCH 32.3 MCHC 32.8 RDW 13.9 Plt Count 279 D MPV 8.9 D Sodium 141 Potassium 4.0 Chloride 105 Carbon Dioxide 33 H Anion Gap 3 L BUN 19.0 H Creatinine 0.9 Est GFR (CKD-EPI)AfAm 111.05 Est GFR (CKD-EPI)NonAf 95.81 Random Glucose 86 Calcium 8.6 Total Bilirubin 0.4 AST 24 ALT 27 Alkaline Phosphatase 120 H Total Protein 5.7 L Albumin 3.0 L Syphilis Serology COVID-19 ([facility]) Not detected 06/02/20 08:00 WBC RBC Hgb Hct MCV MCH MCHC RDW Plt Count MPV Sodium Potassium Chloride Carbon Dioxide Anion Gap BUN Creatinine Est GFR (CKD-EPI)AfAm Est GFR (CKD-EPI)NonAf Random Glucose Calcium Total Bilirubin AST ALT Alkaline Phosphatase Total Protein Albumin Syphilis Serology Non-reactive COVID-19 ([facility]) lab noted Assessment: 06/03/20 15:22 alcohol and opiate withdrawal Plan: valium and methadone regiment
[2020-06-03] MEDS: MELATONIN 5 MG TABLETS PO SCH (23:08)
[2020-06-03] MEDS: THIAMINE HCL 100 MG TABLET (FP) PO SCH (23:08)
[2020-06-04] MEDS ORDERED: METHADONE HCL 5 MG TABLET (FOR DETOX USE ONLY) PO ONE (06:00)
[2020-06-04] MEDS ORDERED: diazePAM 5 MG TABLET PO ONE (06:00)
[2020-06-04 09:21] VITALS: BP 107/59; PULSE 93; TEMP 98.1
[2020-06-04] MEDS: NICOTINE 7 MG/24 HOURS TOPICAL PATCH TD SCH (09:46)
[2020-06-04] MEDS: PRENATAL VITAMINS W/ FOLIC ACID TABLET (FP) PO SCH (09:46)
[2020-06-04] MEDS ORDERED: PNEUMOCOCCAL 23 VACCINE 0.5 ML VIAL IM ONE (12:00)
[2020-06-04] MEDS ORDERED: PNEUMOC 13-VAL CONJ-DIP CRM/PF 0.5 ML DISP.SYRIN IM ONE (12:00)
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
== END 2020-06-04 11:05 | disposition other institution (70) | DRG 773 ==
LOC: YASAS 10:05 → Y3N 13:49
PROVIDERS: ADMIT Allergy & Immunology; ATTEND Allergy & Immunology
PROC: HZ2ZZZZ Detoxification Services for Substance Abuse Treatment (ICD-10-PCS; principal; 2020-06-01)
DX: F10.230 Alcohol dependence with withdrawal, uncomplicated (principal); F11.23 Opioid dependence with withdrawal; F14.20 Cocaine dependence, uncomplicated; F12.20 Cannabis dependence, uncomplicated; F17.210 Nicotine dependence, cigarettes, uncomplicated; F41.9 Anxiety disorder, unspecified; F43.10 Post-traumatic stress disorder, unspecified; F32.9 Major depressive disorder, single episode, unspecified; R29.6 Repeated falls; Z62.810 Personal history of physical and sexual abuse in childhood; Z87.442 Personal history of urinary calculi; Z87.820 Personal history of traumatic brain injury; Z98.890 Other specified postprocedural states; Z91.018 Allergy to other foods; Z56.0 Unemployment, unspecified; Z59.0 Homelessness; Z91.19 Patient's noncompliance with other medical treatment and regimen
CPT/HCPCS: 36415; 80053; 85027; 86780; U0003

== ENCOUNTER 2020-06-04 10:58 | Inpatient (IN) | payer OTHER ==
[2020-06-04] MEDS ORDERED: guaiFENesin 200 MG/10 ML 10 ML UNIT-DOSE CUPS PO PRN (12:25)
[2020-06-04] MEDS ORDERED: MAG HYDROX/AL HYDROX/SIMETH 30 ML UNIT-DOSE CUP PO PRN (12:25)
[2020-06-04] MEDS ORDERED: IBUPROFEN 400 MG TABLET (FP) PO PRN (12:25)
[2020-06-04] MEDS ORDERED: MAGNESIUM HYDROX 2400MG/30ML ORAL SUSPENSION 30 ML CUP PO PRN (12:25)
[2020-06-04] MEDS ORDERED: MENTHOL/PHENOL 1 EACH UD MM PRN (12:25)
[2020-06-04] MEDS ORDERED: LOPERAMIDE HCL 2 MG CAPSULE PO PRN (12:25)
[2020-06-04] MEDS ORDERED: MAGNESIUM CITRATE 300 ML BOTTLE PO PRN (12:25)
[2020-06-04] MEDS ORDERED: NICOTINE POLACRILEX 2 MG GUM BUC PRN (12:25)
[2020-06-04] MEDS ORDERED: P-EPHED 60MG/TRIPROLIDI 2.5MG TABLET PO PRN (12:25)
[2020-06-04] MEDS ORDERED: ACETAMINOPHEN 325 MG TABLET (FP) PO PRN (12:25)
[2020-06-04] MEDS ORDERED: hydrOXYzine PAMOATE 25 MG CAPSULE (FP) PO PRN (12:26)
--- NOTE | 2020-06-04 14:37 | HP ---
[facility] Rehab Assess/Revision - Admission History Admitted to Rehab from: [facility] Date of Admission to Rehab: 06/04/20 - Vital signs Vital Signs: Vital Signs Period Temp Pulse Resp BP Sys/Garcia Pulse Ox Last 24 Hr 98.6 F 81 18 114/84 - Findings Detox History & Physical reviewed: Yes Concur with findings: Yes Comments/Additional Findings: transferred from detox to rehab admission as per protocol Inpatient Rehab Admission - Rehab Decision to Admit Inpatient rehab admission?: Yes - Initial Determination Are CD services needed?: Yes Free of communicable disease: Yes Not in need of hospitalization: Yes - Rehab Admission Criteria Previous failed treatment: Yes Poor recovery environment: Yes Comorbidities: Yes Lacks judgement: Yes Patient is meeting Inpatient Rehab admission criteria:: Yes
[2020-06-04] MEDS ORDERED: PT OWN MED DRAWER 7, Y5N ONE (20:58)
[2020-06-04] MEDS: AMMONIUM LACTATE 12% CREAM 140 GM TUBE TP SCH (21:50)
[2020-06-04] MEDS ORDERED: THIAMINE HCL 100 MG TABLET (FP) PO SCH (22:00)
[2020-06-04] MEDS ORDERED: MELATONIN 5 MG TABLETS PO SCH (22:00)
[2020-06-05 06:46] VITALS: BP 126/76; PULSE 73; TEMP 98
[2020-06-05] MEDS ORDERED: PT OWN MED DRAWER 7, Y5N ONE (08:24)
--- NOTE | 2020-06-05 08:49 | DS ---
[facility] Rehab Discharge Summary - [facility] Rehab Discharge Summary Admission Date: 06/04/20 Discharge Date: 06/05/20 - History Present History: Alcohol dependence, Cannabis dependence, Cocaine dependence, Opioid dependence - Discharge Physical Exam Vital Signs: Vital Signs Temperature 98 F 06/05/20 06:05 Pulse Rate 73 06/05/20 06:05 Respiratory Rate 18 06/05/20 06:05 Blood Pressure 126/76 06/05/20 06:05 O2 Sat by Pulse Oximetry (%) 97 06/05/20 06:05 Alert o x 3 nad oob ambulating with steady gait Active FROM, all limbs Pertinent Admission Physical Exam Findings: Right Middle finger swelling, abrasion on left wrist. - Treatment Discharge Condition: Discharge condition good Hospital Course: Pt completed detox yesterday on and referred to rehab. Pt requests to leave treatment today stating "i have to do surgery on my finger". Pt reports surgery is at [facility] and states he will follow up with CD aftercare at same hospital. - Medication Discharge Medications: Ambulatory Orders Ammonium Lactate Cream [Lac-Hydrin 12% Cream -] 1 applic TP BID 07/15/18 [place] 0.77% Cream Kit 1 applic TP BID 07/15/18 - Medication-Assisted Treatment (MAT) Medication-Assisted Treatment (MAT): No - Discharge Instructions Diet, activity, other medical instructions: Diet:Regular Activity: oob ad wilfrido Other medical instructions:follow up with [facility] for CD aftercare and medical management. - Diagnosis (1) Alcohol dependence Status: Chronic Qualifiers: Substance use status: uncomplicated Qualified Code(s): F10.20 - Alcohol dependence, uncomplicated (2) Opioid dependence Status: Chronic Qualifiers: Substance use status: uncomplicated Qualified Code(s): F11.20 - Opioid dependence, uncomplicated (3) Skin infection Status: Acute (4) Cannabis dependence Status: Chronic (5) Cocaine dependence Status: Chronic Qualifiers: Substance use status: uncomplicated Qualified Code(s): F14.20 - Cocaine dependence, uncomplicated - Follow-up Referral Minutes to complete discharge: 20 - AMA Did Patient Leave Against Medical Advice: Yes Additional Comments: This pt is not known or seen by this data analyst report writer until pt requested to leave.
[2020-06-05] MEDS: AMMONIUM LACTATE 12% CREAM 140 GM TUBE TP SCH (09:40)
[2020-06-05] MEDS ORDERED: NICOTINE 7 MG/24 HOURS TOPICAL PATCH TD SCH (10:00)
[2020-06-05] MEDS ORDERED: PRENATAL VITAMINS W/ FOLIC ACID TABLET (FP) PO SCH (10:00)
== END 2020-06-05 09:11 | disposition left against medical advice (07) | DRG 770 ==
LOC: YASAS 10:58 → Y3W 10:59
PROVIDERS: ADMIT Allergy & Immunology; ATTEND Allergy & Immunology
PROC: HZ42ZZZ Group Counseling for Substance Abuse Treatment, Cognitive-Behavioral (ICD-10-PCS; principal; 2020-06-04)
DX: F10.20 Alcohol dependence, uncomplicated (principal); F11.20 Opioid dependence, uncomplicated; F14.20 Cocaine dependence, uncomplicated; F12.20 Cannabis dependence, uncomplicated; L08.89 Other specified local infections of the skin and subcutaneous tissue

== ENCOUNTER 2020-12-02 14:52 | Inpatient (IN) | payer OTHER ==
[2020-12-02 16:04] VITALS: BMI 19.6
[2020-12-02] MEDS ORDERED: NICOTINE POLACRILEX 2 MG GUM BUC PRN (17:00)
[2020-12-02] MEDS ORDERED: MAGNESIUM CITRATE 300 ML BOTTLE PO PRN (17:00)
[2020-12-02] MEDS ORDERED: METHADONE HCL 10 MG TABLET (FOR DETOX USE ONLY) PO ONE (17:00)
[2020-12-02] MEDS ORDERED: ACETAMINOPHEN 325 MG TABLET (FP) PO PRN ×2 (17:00)
[2020-12-02] MEDS ORDERED: ONDANSETRON *ODT* 4 MG TABLET SL PRN (17:00)
[2020-12-02] MEDS ORDERED: MENTHOL/PHENOL 1 EACH UD MM PRN (17:00)
[2020-12-02] MEDS ORDERED: MAG HYDROX/AL HYDROX/SIMETH 30 ML UNIT-DOSE CUP PO PRN (17:00)
[2020-12-02] MEDS ORDERED: MAGNESIUM HYDROX 2400MG/30ML ORAL SUSPENSION 30 ML CUP PO PRN (17:00)
[2020-12-02] MEDS ORDERED: BISMUTH SUBSALICYLATE 524 MG/30 ML UD PO PRN (17:00)
[2020-12-02] MEDS: THIAMINE HCL 100 MG TABLET (FP) PO SCH (21:23)
[2020-12-02] MEDS ORDERED: MELATONIN 5 MG TABLETS PO SCH (22:00)
[2020-12-03] MEDS ORDERED: METHADONE HCL 10 MG TABLET (FOR DETOX USE ONLY) ONE (08:57)
[2020-12-03] MEDS ORDERED: METHADONE HCL 5 MG TABLET (FOR DETOX USE ONLY) ONE (08:57)
[2020-12-03] MEDS ORDERED: METHADONE (DETOX) 20 MG, METHADONE (DETOX) 5 MG PO ONE (10:00)
[2020-12-03] MEDS: PRENATAL VITAMINS W/ FOLIC ACID TABLET (FP) PO SCH (10:35)
[2020-12-03] MEDS: NICOTINE 21 MG/24 HOURS TOPICAL PATCH TD SCH (10:35)
[2020-12-03 13:44] LABS: POTASSIUM 4.1 mmol/L (3.5-5.1)
[2020-12-03 13:45] LABS: HEMATOCRIT 35.3 % (35.4-49); HEMOGLOBIN 11.6 GM/dL (11.7-16.9); MCH 31.7 pg (25.7-33.7); MCHC 32.8 g/dl (32.0-35.9); MEAN CELL VOLUME 96.5 fl (80-96); MEAN PLT VOLUME 9.2 fl (7.5-11.1); PLATELET COUNT 306 K/MM3 (134-434); RBC 3.66 M/mm3 (4.00-5.60); RDW 13.8 % (11.9-15.9)
[2020-12-03 14:00] LABS: ALBUMIN 2.9 g/dl (3.4-5.0); BLOOD UREA NITROGEN 13.3 mg/dL (7-18)
[2020-12-03 14:01] LABS: CALCIUM 8.6 mg/dL (8.5-10.1)
[2020-12-03 14:03] LABS: CREATININE 0.8 mg/dL (0.55-1.3)
[2020-12-03 14:04] LABS: BILIRUBIN,TOTAL 0.6 mg/dL (0.2-1); TOT PROT 5.4 g/dl (6.4-8.2)
[2020-12-03] MEDS: THIAMINE HCL 100 MG TABLET (FP) PO SCH (23:10)
[2020-12-04] MEDS ORDERED: METHADONE HCL 10 MG TABLET (FOR DETOX USE ONLY) PO ONE (10:00)
[2020-12-04] MEDS: NICOTINE 21 MG/24 HOURS TOPICAL PATCH TD SCH (10:29)
[2020-12-04] MEDS: PRENATAL VITAMINS W/ FOLIC ACID TABLET (FP) PO SCH (10:29)
[2020-12-04] MEDS: IBUPROFEN 400 MG TABLET (FP) PO PRN (10:30)
[2020-12-04] MEDS: METHOCARBAMOL 500 MG TABLET PO PRN (10:30)
[2020-12-04] MEDS: cloNIDine HCL 0.1 MG TABLET PO PRN ×2 (17:34→22:16)
[2020-12-04] MEDS: SUVOREXANT 10 MG TABLET PO PRN (22:16)
[2020-12-04] MEDS: THIAMINE HCL 100 MG TABLET (FP) PO SCH (22:16)
[2020-12-05] MEDS ORDERED: METHADONE HCL 5 MG TABLET (FOR DETOX USE ONLY) ONE (09:14)
[2020-12-05] MEDS ORDERED: METHADONE HCL 10 MG TABLET (FOR DETOX USE ONLY) ONE (09:14)
[2020-12-05] MEDS ORDERED: METHADONE (DETOX) 10 MG, METHADONE (DETOX) 5 MG PO ONE (10:00)
[2020-12-05] MEDS: PRENATAL VITAMINS W/ FOLIC ACID TABLET (FP) PO SCH (10:05)
[2020-12-05] MEDS: NICOTINE 21 MG/24 HOURS TOPICAL PATCH TD SCH (10:06)
[2020-12-05] MEDS: METHOCARBAMOL 500 MG TABLET PO PRN (18:17)
[2020-12-05] MEDS: IBUPROFEN 400 MG TABLET (FP) PO PRN (18:17)
[2020-12-05] MEDS: SUVOREXANT 10 MG TABLET PO PRN (22:24)
[2020-12-05] MEDS: THIAMINE HCL 100 MG TABLET (FP) PO SCH (22:24)
[2020-12-06] MEDS ORDERED: METHADONE HCL 10 MG TABLET (FOR DETOX USE ONLY) PO ONE (10:00)
[2020-12-06] MEDS: NICOTINE 21 MG/24 HOURS TOPICAL PATCH TD SCH (10:56)
[2020-12-06] MEDS: PRENATAL VITAMINS W/ FOLIC ACID TABLET (FP) PO SCH (10:56)
[2020-12-06] MEDS: IBUPROFEN 400 MG TABLET (FP) PO PRN ×2 (10:58→22:18)
[2020-12-06] MEDS: METHOCARBAMOL 500 MG TABLET PO PRN ×2 (10:58→22:17)
[2020-12-06] MEDS ORDERED: LIDOCAINE 5% TOPICAL PATCH TP SCH (13:15)
[2020-12-06] MEDS ORDERED: LIDOCAINE PATCH REMOVAL MC SCH (22:00)
[2020-12-06] MEDS: THIAMINE HCL 100 MG TABLET (FP) PO SCH (22:14)
[2020-12-07] MEDS ORDERED: METHADONE HCL 5 MG TABLET (FOR DETOX USE ONLY) PO ONE (06:00)
[2020-12-07 07:44] VITALS: BP 135/64; PULSE 53; TEMP 97.5
== END 2020-12-07 09:24 | disposition other institution (70) | DRG 773 ==
LOC: YASAS 14:52 → Y6N 16:18
PROVIDERS: ADMIT Allergy & Immunology; ATTEND Allergy & Immunology
PROC: HZ2ZZZZ Detoxification Services for Substance Abuse Treatment (ICD-10-PCS; principal; 2020-12-02)
DX: F11.23 Opioid dependence with withdrawal (principal); F14.20 Cocaine dependence, uncomplicated; F12.20 Cannabis dependence, uncomplicated; F16.10 Hallucinogen abuse, uncomplicated; F17.210 Nicotine dependence, cigarettes, uncomplicated; F19.282 Other psychoactive substance dependence with psychoactive substance-induced sleep disorder; F19.24 Other psychoactive substance dependence with psychoactive substance-induced mood disorder; F43.10 Post-traumatic stress disorder, unspecified; F41.9 Anxiety disorder, unspecified; F32.9 Major depressive disorder, single episode, unspecified; D64.9 Anemia, unspecified; Z87.442 Personal history of urinary calculi; Z98.890 Other specified postprocedural states
CPT/HCPCS: 36415; 80053; 85027; 86780; 93005; 93010; C9803; J0735; U0003

== ENCOUNTER 2021-01-15 15:27 | Inpatient (IN) | payer OTHER ==
[2021-01-15 16:52] VITALS: BMI 19.8
[2021-01-15] MEDS ORDERED: LOPERAMIDE HCL 2 MG CAPSULE PO PRN (21:05)
[2021-01-15] MEDS ORDERED: NICOTINE POLACRILEX 2 MG GUM BC PRN (21:05)
[2021-01-15] MEDS ORDERED: MAGNESIUM CITRATE 300 ML BOTTLE PO PRN (21:05)
[2021-01-15] MEDS ORDERED: MAG HYDROX/AL HYDROX/SIMETH 30 ML UNIT-DOSE CUP PO PRN (21:05)
[2021-01-15] MEDS ORDERED: P-EPHED 60MG/TRIPROLIDI 2.5MG TABLET PO PRN (21:05)
[2021-01-15] MEDS ORDERED: MAGNESIUM HYDROX 2400MG/30ML ORAL SUSPENSION 30 ML CUP PO PRN (21:05)
[2021-01-15] MEDS ORDERED: hydrOXYzine PAMOATE 25 MG CAPSULE (FP) PO PRN (21:05)
[2021-01-15] MEDS ORDERED: NALOXONE (NARCAN) HCL 4 MG/0.1 ML SPRAY NS PRN (21:05)
[2021-01-15] MEDS ORDERED: guaiFENesin 200 MG/10 ML 10 ML UNIT-DOSE CUPS PO PRN (21:05)
[2021-01-15] MEDS ORDERED: ACETAMINOPHEN 325 MG TABLET (FP) PO PRN (21:05)
[2021-01-15] MEDS ORDERED: NALOXONE HCL 0.4 MG/ML VIAL IM PRN (21:05)
[2021-01-16] MEDS: MELATONIN 5 MG TABLETS PO SCH ×2 (00:18→21:27)
[2021-01-16] MEDS: THIAMINE HCL 100 MG TABLET (FP) PO SCH ×2 (00:18→21:27)
[2021-01-16] MEDS: METHADONE HCL 10 MG TABLET PO SCH (09:51)
[2021-01-16] MEDS: PRENATAL VITAMINS W/ FOLIC ACID TABLET (FP) PO SCH (09:51)
[2021-01-16] MEDS: NICOTINE 14 MG/24 HOURS TOPICAL PATCH TD SCH (09:52)
[2021-01-16 10:15] LABS: HEMATOCRIT 36.4 % (35.4-49); HEMOGLOBIN 12.3 GM/dL (11.7-16.9); MCH 32.5 pg (25.7-33.7); MCHC 33.9 g/dl (32.0-35.9); MEAN CELL VOLUME 95.9 fl (80-96); MEAN PLT VOLUME 9.5 fl (7.5-11.1); PLATELET COUNT 230 K/MM3 (134-434); RBC 3.79 M/mm3 (4.00-5.60); RDW 13.4 % (11.9-15.9); WHITE BLOOD COUNT 5.8 K/mm3 (4.0-10.0)
[2021-01-16 10:18] LABS: ALBUMIN 3.3 g/dl (3.4-5.0); BLOOD UREA NITROGEN 18.1 mg/dL (7-18); CALCIUM 8.7 mg/dL (8.5-10.1)
[2021-01-16 10:21] LABS: CREATININE 0.9 mg/dL (0.55-1.3)
[2021-01-16 10:23] LABS: EPI CELLS 5 /uL (0-25.1); HYALINE CASTS 44 /uL (0-3.1); PH,URINE 7.5 (5.0-8.0); URINE APPEARANCE TURBID; URINE BACTERIA 61 /uL (0-1359); URINE BILIRUBIN NEGATIVE (NEGATIVE); URINE COLOR YELLOW; URINE GLUCOSE (UA) NEGATIVE (NEGATIVE); URINE KETONE NEGATIVE (NEGATIVE); URINE LEUK ESTERASE 2+ (NEGATIVE); URINE NITRITE NEGATIVE (NEGATIVE); URINE PROTEIN 2+ (NEGATIVE); URINE RBC 1022 /uL (0-23.9); URINE WBC 935 /uL (0-25.8)
[2021-01-16 10:23] LABS: BILIRUBIN,TOTAL 0.4 mg/dL (0.2-1); TOT PROT 5.8 g/dl (6.4-8.2)
[2021-01-16] MEDS: PRAZOSIN HCL 1 MG CAPSULE PO SCH (21:28)
[2021-01-16] MEDS: MIRTAZAPINE 15 MG TABLET (FP) PO SCH (21:29)
[2021-01-17] MEDS: METHADONE HCL 10 MG TABLET PO SCH (06:49)
[2021-01-17] MEDS: NICOTINE 14 MG/24 HOURS TOPICAL PATCH TD SCH (09:30)
[2021-01-17] MEDS: PRENATAL VITAMINS W/ FOLIC ACID TABLET (FP) PO SCH (09:30)
[2021-01-17] MEDS: MIRTAZAPINE 15 MG TABLET (FP) PO SCH (21:11)
[2021-01-17] MEDS: MELATONIN 5 MG TABLETS PO SCH (21:12)
[2021-01-17] MEDS: THIAMINE HCL 100 MG TABLET (FP) PO SCH (21:12)
[2021-01-17] MEDS: PRAZOSIN HCL 1 MG CAPSULE PO SCH (21:13)
[2021-01-18] MEDS: METHADONE HCL 10 MG TABLET PO SCH (06:01)
[2021-01-18] MEDS: IBUPROFEN 400 MG TABLET (FP) PO PRN (07:28)
[2021-01-18] MEDS: NICOTINE 14 MG/24 HOURS TOPICAL PATCH TD SCH (10:15)
[2021-01-18] MEDS: PRENATAL VITAMINS W/ FOLIC ACID TABLET (FP) PO SCH (10:15)
[2021-01-18] MEDS: MELATONIN 5 MG TABLETS PO SCH (21:42)
[2021-01-18] MEDS: THIAMINE HCL 100 MG TABLET (FP) PO SCH (21:42)
[2021-01-18] MEDS: PRAZOSIN HCL 1 MG CAPSULE PO SCH (21:42)
[2021-01-18] MEDS: MIRTAZAPINE 15 MG TABLET (FP) PO SCH (21:44)
[2021-01-19] MEDS: METHADONE HCL 10 MG TABLET PO SCH (06:39)
[2021-01-19 08:09] LABS: SARS-CoV-2 NAA Not Detected (Not Detected)
[2021-01-19] MEDS: PRENATAL VITAMINS W/ FOLIC ACID TABLET (FP) PO SCH (10:16)
[2021-01-19] MEDS: NICOTINE 14 MG/24 HOURS TOPICAL PATCH TD SCH (10:17)
[2021-01-19 17:20] LABS: EPI CELLS 12 /uL (0-25.1); HYALINE CASTS 4 /uL (0-3.1); URINE APPEARANCE TURBID; URINE BACTERIA 75 /uL (0-1359); URINE BILIRUBIN NEGATIVE (NEGATIVE); URINE COLOR YELLOW; URINE GLUCOSE (UA) NEGATIVE (NEGATIVE); URINE KETONE NEGATIVE (NEGATIVE); URINE LEUK ESTERASE TRACE (NEGATIVE); URINE NITRITE NEGATIVE (NEGATIVE); URINE PROTEIN TRACE (NEGATIVE); URINE RBC 25 /uL (0-23.9); URINE WBC 48 /uL (0-25.8)
[2021-01-19] MEDS: THIAMINE HCL 100 MG TABLET (FP) PO SCH (21:40)
[2021-01-19] MEDS: MELATONIN 5 MG TABLETS PO SCH (21:40)
[2021-01-19] MEDS: MIRTAZAPINE 15 MG TABLET (FP) PO SCH (21:40)
[2021-01-19] MEDS ORDERED: PT OWN MED DRAWER 7, Y5N ONE (21:40)
[2021-01-19] MEDS: PRAZOSIN HCL 1 MG CAPSULE PO SCH (21:41)
[2021-01-20] MEDS: METHADONE HCL 10 MG TABLET PO SCH (06:18)
[2021-01-20] MEDS: PRENATAL VITAMINS W/ FOLIC ACID TABLET (FP) PO SCH (09:59)
[2021-01-20] MEDS: NICOTINE 14 MG/24 HOURS TOPICAL PATCH TD SCH (09:59)
[2021-01-20] MEDS: IBUPROFEN 400 MG TABLET (FP) PO PRN (10:16)
[2021-01-20] MEDS: LIDOCAINE 5% TOPICAL PATCH TP SCH (13:03)
[2021-01-20] MEDS: PRAZOSIN HCL 1 MG CAPSULE PO SCH (21:21)
[2021-01-20] MEDS: THIAMINE HCL 100 MG TABLET (FP) PO SCH (21:21)
[2021-01-20] MEDS: MELATONIN 5 MG TABLETS PO SCH (21:21)
[2021-01-20] MEDS: MIRTAZAPINE 15 MG TABLET (FP) PO SCH (21:22)
[2021-01-20] MEDS: LIDOCAINE PATCH REMOVAL MC SCH (21:22)
[2021-01-21] MEDS: METHADONE HCL 10 MG TABLET PO SCH (06:19)
[2021-01-21] MEDS: LIDOCAINE 5% TOPICAL PATCH TP SCH (10:11)
[2021-01-21] MEDS: NICOTINE 14 MG/24 HOURS TOPICAL PATCH TD SCH (10:13)
[2021-01-21] MEDS: PRENATAL VITAMINS W/ FOLIC ACID TABLET (FP) PO SCH (10:13)
[2021-01-21] MEDS: MIRTAZAPINE 15 MG TABLET (FP) PO SCH (22:40)
[2021-01-21] MEDS: LIDOCAINE PATCH REMOVAL MC SCH (22:40)
[2021-01-21] MEDS: THIAMINE HCL 100 MG TABLET (FP) PO SCH (22:40)
[2021-01-21] MEDS: PRAZOSIN HCL 1 MG CAPSULE PO SCH (22:40)
[2021-01-21] MEDS: MELATONIN 5 MG TABLETS PO SCH (22:40)
[2021-01-22] MEDS: METHADONE HCL 10 MG TABLET PO SCH (06:16)
[2021-01-22 07:03] VITALS: TEMP 97.7
[2021-01-22] MEDS: LIDOCAINE 5% TOPICAL PATCH TP SCH (10:36)
[2021-01-22] MEDS: PRENATAL VITAMINS W/ FOLIC ACID TABLET (FP) PO SCH (10:36)
[2021-01-22] MEDS: NICOTINE 14 MG/24 HOURS TOPICAL PATCH TD SCH (10:36)
[2021-01-22] MEDS: THIAMINE HCL 100 MG TABLET (FP) PO SCH (21:42)
[2021-01-22] MEDS: PRAZOSIN HCL 1 MG CAPSULE PO SCH (21:42)
[2021-01-22] MEDS: MELATONIN 5 MG TABLETS PO SCH (21:43)
[2021-01-22] MEDS: LIDOCAINE PATCH REMOVAL MC SCH (21:43)
[2021-01-22] MEDS: MIRTAZAPINE 15 MG TABLET (FP) PO SCH (21:44)
[2021-01-23] MEDS ORDERED: METHADONE HCL 10 MG TABLET PO SCH (06:00)
[2021-01-23] MEDS: LIDOCAINE 5% TOPICAL PATCH TP SCH (10:11)
[2021-01-23] MEDS: PRENATAL VITAMINS W/ FOLIC ACID TABLET (FP) PO SCH (10:12)
[2021-01-23] MEDS: NICOTINE 14 MG/24 HOURS TOPICAL PATCH TD SCH (10:13)
[2021-01-23 20:31] VITALS: BP 135/74; PULSE 79
[2021-01-23] MEDS: LIDOCAINE PATCH REMOVAL MC SCH (22:51)
[2021-01-23] MEDS: THIAMINE HCL 100 MG TABLET (FP) PO SCH (22:51)
[2021-01-23] MEDS: MELATONIN 5 MG TABLETS PO SCH (22:51)
[2021-01-23] MEDS: MIRTAZAPINE 15 MG TABLET (FP) PO SCH (22:51)
[2021-01-23] MEDS: PRAZOSIN HCL 1 MG CAPSULE PO SCH (22:51)
== END 2021-01-23 22:15 | disposition left against medical advice (07) | DRG 770 ==
LOC: YASAS 15:27 → Y3E 22:51 → Y3W 22:58
PROVIDERS: ADMIT Allergy & Immunology; ATTEND Allergy & Immunology
PROC: HZ42ZZZ Group Counseling for Substance Abuse Treatment, Cognitive-Behavioral (ICD-10-PCS; principal; 2021-01-15)
DX: F10.20 Alcohol dependence, uncomplicated (principal); F11.20 Opioid dependence, uncomplicated; F14.20 Cocaine dependence, uncomplicated; F12.20 Cannabis dependence, uncomplicated; F17.210 Nicotine dependence, cigarettes, uncomplicated; F19.282 Other psychoactive substance dependence with psychoactive substance-induced sleep disorder; F19.24 Other psychoactive substance dependence with psychoactive substance-induced mood disorder; F41.9 Anxiety disorder, unspecified; F32.9 Major depressive disorder, single episode, unspecified; D64.9 Anemia, unspecified; K21.9 Gastro-esophageal reflux disease without esophagitis; M25.512 Pain in left shoulder; R45.89 Other symptoms and signs involving emotional state; R31.9 Hematuria, unspecified; Z91.19 Patient's noncompliance with other medical treatment and regimen; Z59.0 Homelessness
CPT/HCPCS: 36415; 80053; 81003; 85027; 86780; 87086; 93005; 93010; C9803; U0003; U0005

== ENCOUNTER 2021-07-20 13:17 | Inpatient (IN) | payer OTHER ==
[2021-07-20] MEDS ORDERED: NICOTINE 10 MG CARTRIDGE (INHALER) IH PRN (18:12)
[2021-07-20] MEDS ORDERED: ACETAMINOPHEN 325 MG TABLET (FP) PO PRN ×2 (18:12)
[2021-07-20] MEDS ORDERED: LORazepam 1 MG TABLET PO PRN (18:12)
[2021-07-20] MEDS ORDERED: MAGNESIUM CITRATE 300 ML BOTTLE PO PRN (18:12)
[2021-07-20] MEDS ORDERED: METHOCARBAMOL 500 MG TABLET PO PRN (18:12)
[2021-07-20] MEDS ORDERED: ONDANSETRON *ODT* 4 MG TABLET SL PRN (18:12)
[2021-07-20] MEDS ORDERED: IBUPROFEN 400 MG TABLET (FP) PO PRN (18:12)
[2021-07-20] MEDS ORDERED: BISMUTH SUBSALICYLATE 524 MG/30 ML PO PRN (18:12)
[2021-07-20] MEDS ORDERED: MAGNESIUM HYDROX 2400MG/30ML ORAL SUSPENSION 30 ML CUP PO PRN (18:12)
[2021-07-20] MEDS ORDERED: MENTHOL/PHENOL 1 EACH UD MM PRN (18:12)
[2021-07-20] MEDS ORDERED: MAG HYDROX/AL HYDROX/SIMETH 30 ML UNIT-DOSE CUP PO PRN (18:12)
[2021-07-20] MEDS: LORazepam 2 MG TABLET PO SCH ×2 (20:32→22:40)
[2021-07-20] MEDS: PRENATAL VITAMINS W/ FOLIC ACID TABLET (FP) PO SCH (20:34)
[2021-07-20] MEDS: MELATONIN 5 MG TABLETS PO SCH (22:40)
[2021-07-20] MEDS: hydrOXYzine PAMOATE 25 MG CAPSULE (FP) PO SCH (22:40)
[2021-07-20] MEDS: THIAMINE HCL 100 MG TABLET (FP) PO SCH (22:40)
[2021-07-21] MEDS: LORazepam 2 MG TABLET PO SCH ×4 (06:36→22:47)
[2021-07-21] MEDS: hydrOXYzine PAMOATE 25 MG CAPSULE (FP) PO SCH (06:37)
[2021-07-21] MEDS ORDERED: hydrOXYzine PAMOATE 25 MG CAPSULE (FP) PO PRN (10:20)
[2021-07-21] MEDS: PRENATAL VITAMINS W/ FOLIC ACID TABLET (FP) PO SCH (10:33)
[2021-07-21 10:59] LABS: ALBUMIN 2.9 g/dl (3.4-5.0); CALCIUM 8.2 mg/dL (8.5-10.1)
[2021-07-21 11:00] LABS: BLOOD UREA NITROGEN 17.2 mg/dL (7-18)
[2021-07-21 11:03] LABS: CREATININE 0.9 mg/dL (0.55-1.3)
[2021-07-21 11:04] LABS: BILIRUBIN,TOTAL 0.3 mg/dL (0.2-1); TOT PROT 5.9 g/dl (6.4-8.2)
[2021-07-21 11:08] LABS: HEMATOCRIT 34.7 % (35.4-49); HEMOGLOBIN 11.9 GM/dL (11.7-16.9); MCH 32.9 pg (25.7-33.7); MCHC 34.3 g/dl (32.0-35.9); MEAN CELL VOLUME 95.8 fl (80-96); MEAN PLT VOLUME 9.2 fl (7.5-11.1); PLATELET COUNT 233 10^3/uL (134-434); RBC 3.62 M/mm3 (4.00-5.60); RDW 13.4 % (11.9-15.9); WHITE BLOOD COUNT 5.3 K/mm3 (4.0-10.0)
[2021-07-21] MEDS ORDERED: methaDONE HCL 10 MG TABLET PO ONE (11:59)
[2021-07-21] MEDS ORDERED: methaDONE 40 MG, methaDONE 30 MG PO ONE (12:25)
[2021-07-21] MEDS ORDERED: methaDONE HCL 40 MG DISPERSABLE TABLET ONE (14:58)
[2021-07-21] MEDS ORDERED: methaDONE HCL 10 MG TABLET ONE (14:58)
[2021-07-21] MEDS: THIAMINE HCL 100 MG TABLET (FP) PO SCH (22:47)
[2021-07-21] MEDS: MELATONIN 5 MG TABLETS PO SCH (22:47)
[2021-07-22] MEDS ORDERED: methaDONE HCL 10 MG TABLET ONE (04:14)
[2021-07-22] MEDS ORDERED: methaDONE HCL 40 MG DISPERSABLE TABLET ONE (04:15)
[2021-07-22] MEDS: methaDONE 40 MG, methaDONE 30 MG PO SCH (05:57)
[2021-07-22] MEDS: LORazepam 1 MG TABLET PO SCH ×4 (05:59→22:37)
[2021-07-22] MEDS ORDERED: methaDONE HCL 40 MG DISPERSABLE TABLET PO SCH (06:00)
[2021-07-22] MEDS: PRENATAL VITAMINS W/ FOLIC ACID TABLET (FP) PO SCH (10:30)
[2021-07-22] MEDS: hydrOXYzine PAMOATE 25 MG CAPSULE (FP) PO SCH (10:34)
[2021-07-22] MEDS: THIAMINE HCL 100 MG TABLET (FP) PO SCH (22:36)
[2021-07-22] MEDS: MELATONIN 5 MG TABLETS PO SCH (22:36)
[2021-07-23] MEDS ORDERED: LORazepam 0.5 MG TABLET PO PRN
[2021-07-23] MEDS ORDERED: methaDONE HCL 10 MG TABLET ONE (04:08)
[2021-07-23] MEDS ORDERED: methaDONE HCL 40 MG DISPERSABLE TABLET ONE (04:08)
[2021-07-23] MEDS: LORazepam 0.5 MG TABLET PO SCH ×4 (06:44→22:16)
[2021-07-23] MEDS: methaDONE 40 MG, methaDONE 30 MG PO SCH (06:45)
[2021-07-23] MEDS: PRENATAL VITAMINS W/ FOLIC ACID TABLET (FP) PO SCH (10:24)
[2021-07-23] MEDS: THIAMINE HCL 100 MG TABLET (FP) PO SCH (22:16)
[2021-07-23] MEDS: MELATONIN 5 MG TABLETS PO SCH (22:16)
[2021-07-24] MEDS ORDERED: methaDONE HCL 10 MG TABLET ONE (04:05)
[2021-07-24] MEDS ORDERED: methaDONE HCL 40 MG DISPERSABLE TABLET ONE (04:06)
[2021-07-24] MEDS ORDERED: LORazepam 0.5 MG TABLET PO ONE (05:00)
[2021-07-24] MEDS: methaDONE 40 MG, methaDONE 30 MG PO SCH (05:37)
[2021-07-24 09:19] VITALS: BP 133/74; PULSE 73; TEMP 97.2
[2021-07-24] MEDS: PRENATAL VITAMINS W/ FOLIC ACID TABLET (FP) PO SCH (10:44)
== END 2021-07-24 11:55 | disposition home or self-care (01) | DRG 773 ==
LOC: YASAS 13:17 → Y3N 19:20
PROVIDERS: ADMIT Allergy & Immunology; ATTEND Allergy & Immunology
PROC: HZ2ZZZZ Detoxification Services for Substance Abuse Treatment (ICD-10-PCS; principal; 2021-07-20)
DX: F10.230 Alcohol dependence with withdrawal, uncomplicated (principal); F11.20 Opioid dependence, uncomplicated; F14.20 Cocaine dependence, uncomplicated; F12.20 Cannabis dependence, uncomplicated; F16.10 Hallucinogen abuse, uncomplicated; F17.210 Nicotine dependence, cigarettes, uncomplicated; F43.10 Post-traumatic stress disorder, unspecified; Z59.02 Unsheltered homelessness
CPT/HCPCS: 36415; 80053; 85027; 86780; C9803; U0003; U0005

== ENCOUNTER 2022-02-09 13:58 | Inpatient (IN) | payer OTHER ==
[2022-02-09 14:24] VITALS: BMI 20.5
[2022-02-09] MEDS ORDERED: NICOTINE 10 MG CARTRIDGE (INHALER) IH PRN (14:42)
[2022-02-09] MEDS ORDERED: P-EPHED 60MG/TRIPROLIDI 2.5MG TABLET PO PRN (14:42)
[2022-02-09] MEDS ORDERED: MAGNESIUM CITRATE 300 ML BOTTLE PO PRN (14:42)
[2022-02-09] MEDS ORDERED: IBUPROFEN 400 MG TABLET (FP) PO PRN (14:42)
[2022-02-09] MEDS ORDERED: ACETAMINOPHEN 325 MG TABLET (FP) PO PRN (14:42)
[2022-02-09] MEDS ORDERED: MAG HYDROX/AL HYDROX/SIMETH 30 ML UNIT-DOSE CUP PO PRN (14:42)
[2022-02-09] MEDS ORDERED: LOPERAMIDE HCL 2 MG CAPSULE PO PRN (14:42)
[2022-02-09] MEDS ORDERED: guaiFENesin 200 MG/10 ML 10 ML UNIT-DOSE CUPS PO PRN (14:42)
[2022-02-09] MEDS ORDERED: MAGNESIUM HYDROX 2400MG/30ML ORAL SUSPENSION 30 ML CUP PO PRN (14:42)
[2022-02-09] MEDS: THIAMINE HCL 100 MG TABLET (FP) PO SCH (21:48)
[2022-02-09] MEDS: MELATONIN 5 MG TABLETS PO SCH (21:48)
[2022-02-09] MEDS: hydrOXYzine PAMOATE 25 MG CAPSULE (FP) PO SCH ×2 (21:48→21:51)
[2022-02-09] MEDS: PRENATAL VITAMINS W/ FOLIC ACID TABLET (FP) PO SCH (21:50)
[2022-02-09] MEDS: NICOTINE 7 MG/24 HOURS TOPICAL PATCH TD SCH (21:50)
[2022-02-10] MEDS: hydrOXYzine PAMOATE 25 MG CAPSULE (FP) PO SCH ×5 (07:08→21:23)
[2022-02-10] MEDS: PRENATAL VITAMINS W/ FOLIC ACID TABLET (FP) PO SCH (09:53)
[2022-02-10] MEDS: NICOTINE 7 MG/24 HOURS TOPICAL PATCH TD SCH (09:53)
[2022-02-10] MEDS ORDERED: methaDONE HCL 10 MG TABLET PO ONE (09:55)
[2022-02-10] MEDS ORDERED: methaDONE HCL 40 MG DISPERSABLE TABLET ONE (10:22)
[2022-02-10] MEDS ORDERED: methaDONE HCL 10 MG TABLET ONE (10:22)
[2022-02-10] MEDS ORDERED: methaDONE 40 MG, methaDONE 10 MG PO ONE (10:30)
[2022-02-10 13:49] LABS: HEMATOCRIT 36.4 % (35.4-49); HEMOGLOBIN 12.1 GM/dL (11.7-16.9); MCH 30.7 pg (25.7-33.7); MCHC 33.3 g/dl (32.0-35.9); MEAN CELL VOLUME 92.1 fl (80-96); MEAN PLT VOLUME 10.1 fl (7.5-11.1); PLATELET COUNT 223 10^3/uL (134-434); RBC 3.96 M/mm3 (4.00-5.60); RDW 13.7 % (11.9-15.9); WHITE BLOOD COUNT 6.1 K/mm3 (4.0-10.0)
[2022-02-10 14:33] LABS: ALBUMIN 3.5 g/dl (3.4-5.0); CALCIUM 8.8 mg/dL (8.5-10.1)
[2022-02-10 14:37] LABS: TOT PROT 6.1 g/dl (6.4-8.2)
[2022-02-10 14:39] LABS: BILIRUBIN,TOTAL 0.4 mg/dL (0.2-1)
[2022-02-10 14:44] LABS: BLOOD UREA NITROGEN 13.4 mg/dL (7-18); CREATININE 0.7 mg/dL (0.55-1.3)
[2022-02-10 15:03] LABS: SYPHILIS W/ RPR CONF NON-REACTIVE (NONREACTIVE)
[2022-02-10] MEDS: THIAMINE HCL 100 MG TABLET (FP) PO SCH (21:23)
[2022-02-10] MEDS: MELATONIN 5 MG TABLETS PO SCH (21:23)
[2022-02-11] MEDS ORDERED: methaDONE HCL 10 MG TABLET ONE (04:13)
[2022-02-11] MEDS ORDERED: methaDONE HCL 40 MG DISPERSABLE TABLET ONE (04:13)
[2022-02-11] MEDS ORDERED: methaDONE HCL 10 MG TABLET PO SCH (06:00)
[2022-02-11] MEDS: methaDONE 40 MG, methaDONE 10 MG PO SCH (06:30)
[2022-02-11] MEDS: hydrOXYzine PAMOATE 25 MG CAPSULE (FP) PO SCH ×2 (06:31→10:03)
[2022-02-11] MEDS: PRENATAL VITAMINS W/ FOLIC ACID TABLET (FP) PO SCH (10:03)
[2022-02-11] MEDS: NICOTINE 7 MG/24 HOURS TOPICAL PATCH TD SCH (10:03)
[2022-02-11 13:18] LABS: EPI CELLS 3 /uL (0-25.1); HYALINE CASTS 2 /uL (0-3.1); URINE APPEARANCE CLEAR; URINE BACTERIA 5 /uL (0-1359); URINE BILIRUBIN NEGATIVE (NEGATIVE); URINE COLOR YELLOW; URINE GLUCOSE (UA) NEGATIVE (NEGATIVE); URINE KETONE NEGATIVE (NEGATIVE); URINE LEUK ESTERASE TRACE (NEGATIVE); URINE NITRITE NEGATIVE (NEGATIVE); URINE PROTEIN TRACE (NEGATIVE); URINE RBC 297 /uL (0-23.9); URINE UROBILINOGEN 0.2 mg/dL (0.2-1.0); URINE WBC 43 /uL (0-25.8)
[2022-02-11] MEDS: THIAMINE HCL 100 MG TABLET (FP) PO SCH (21:19)
[2022-02-11] MEDS: MELATONIN 5 MG TABLETS PO SCH (21:19)
[2022-02-12] MEDS ORDERED: methaDONE HCL 10 MG TABLET ONE (05:04)
[2022-02-12] MEDS ORDERED: methaDONE HCL 40 MG DISPERSABLE TABLET ONE (05:04)
[2022-02-12] MEDS: methaDONE 40 MG, methaDONE 10 MG PO SCH (06:21)
[2022-02-12] MEDS: PRENATAL VITAMINS W/ FOLIC ACID TABLET (FP) PO SCH (10:09)
[2022-02-12] MEDS: NICOTINE 7 MG/24 HOURS TOPICAL PATCH TD SCH (10:09)
[2022-02-12] MEDS: hydrOXYzine PAMOATE 25 MG CAPSULE (FP) PO PRN (10:10)
[2022-02-12 14:14] LABS: SARS-CoV-2 NAA Not Detected (Not Detected)
[2022-02-12] MEDS: THIAMINE HCL 100 MG TABLET (FP) PO SCH (21:41)
[2022-02-12] MEDS: MELATONIN 5 MG TABLETS PO SCH (21:41)
[2022-02-13] MEDS ORDERED: methaDONE HCL 10 MG TABLET ONE (05:49)
[2022-02-13] MEDS ORDERED: methaDONE HCL 40 MG DISPERSABLE TABLET ONE (05:50)
[2022-02-13] MEDS: methaDONE 40 MG, methaDONE 10 MG PO SCH (06:46)
[2022-02-13] MEDS: PRENATAL VITAMINS W/ FOLIC ACID TABLET (FP) PO SCH (11:13)
[2022-02-13] MEDS: NICOTINE 7 MG/24 HOURS TOPICAL PATCH TD SCH (11:13)
[2022-02-13] MEDS: MELATONIN 5 MG TABLETS PO SCH (22:15)
[2022-02-13] MEDS: THIAMINE HCL 100 MG TABLET (FP) PO SCH (22:15)
[2022-02-14] MEDS ORDERED: methaDONE HCL 40 MG DISPERSABLE TABLET ONE (05:00)
[2022-02-14] MEDS ORDERED: methaDONE HCL 10 MG TABLET ONE (05:00)
[2022-02-14] MEDS: methaDONE 40 MG, methaDONE 10 MG PO SCH (06:26)
[2022-02-14] MEDS: NICOTINE 7 MG/24 HOURS TOPICAL PATCH TD SCH (11:17)
[2022-02-14] MEDS: PRENATAL VITAMINS W/ FOLIC ACID TABLET (FP) PO SCH (11:18)
[2022-02-14] MEDS: MELATONIN 5 MG TABLETS PO SCH (22:20)
[2022-02-14] MEDS: THIAMINE HCL 100 MG TABLET (FP) PO SCH (22:20)
[2022-02-15] MEDS ORDERED: methaDONE HCL 10 MG TABLET ONE (02:58)
[2022-02-15] MEDS ORDERED: methaDONE HCL 40 MG DISPERSABLE TABLET ONE (02:58)
[2022-02-15] MEDS: methaDONE 40 MG, methaDONE 10 MG PO SCH (06:32)
[2022-02-15] MEDS: NICOTINE 7 MG/24 HOURS TOPICAL PATCH TD SCH (10:19)
[2022-02-15] MEDS: PRENATAL VITAMINS W/ FOLIC ACID TABLET (FP) PO SCH (10:19)
[2022-02-15] MEDS: THIAMINE HCL 100 MG TABLET (FP) PO SCH (21:29)
[2022-02-15] MEDS: hydrOXYzine PAMOATE 25 MG CAPSULE (FP) PO PRN (21:29)
[2022-02-15] MEDS: MELATONIN 5 MG TABLETS PO SCH (21:29)
[2022-02-16] MEDS ORDERED: methaDONE HCL 10 MG TABLET ONE (03:00)
[2022-02-16] MEDS ORDERED: methaDONE HCL 40 MG DISPERSABLE TABLET ONE (03:00)
[2022-02-16] MEDS: methaDONE 40 MG, methaDONE 10 MG PO SCH (06:28)
[2022-02-16] MEDS: PRENATAL VITAMINS W/ FOLIC ACID TABLET (FP) PO SCH (10:06)
[2022-02-16] MEDS: NICOTINE 7 MG/24 HOURS TOPICAL PATCH TD SCH (10:06)
[2022-02-16] MEDS: hydrOXYzine PAMOATE 25 MG CAPSULE (FP) PO PRN (10:07)
[2022-02-16] MEDS: THIAMINE HCL 100 MG TABLET (FP) PO SCH (21:42)
[2022-02-16] MEDS: MELATONIN 5 MG TABLETS PO SCH (21:42)
[2022-02-17] MEDS ORDERED: methaDONE HCL 10 MG TABLET ONE (03:44)
[2022-02-17] MEDS ORDERED: methaDONE HCL 40 MG DISPERSABLE TABLET ONE (03:44)
[2022-02-17] MEDS: methaDONE 40 MG, methaDONE 10 MG PO SCH (06:46)
[2022-02-17] MEDS: PRENATAL VITAMINS W/ FOLIC ACID TABLET (FP) PO SCH (11:03)
[2022-02-17] MEDS: NICOTINE 7 MG/24 HOURS TOPICAL PATCH TD SCH (11:03)
[2022-02-17] MEDS: THIAMINE HCL 100 MG TABLET (FP) PO SCH (21:25)
[2022-02-17] MEDS: QUEtiapine FUMARATE 25 MG TABLET PO SCH (21:26)
[2022-02-18] MEDS ORDERED: methaDONE HCL 40 MG DISPERSABLE TABLET ONE (04:03)
[2022-02-18] MEDS ORDERED: methaDONE HCL 10 MG TABLET ONE (04:03)
[2022-02-18] MEDS: methaDONE 40 MG, methaDONE 10 MG PO SCH (06:43)
[2022-02-18] MEDS: PRENATAL VITAMINS W/ FOLIC ACID TABLET (FP) PO SCH (10:24)
[2022-02-18] MEDS: NICOTINE 7 MG/24 HOURS TOPICAL PATCH TD SCH (10:25)
[2022-02-18] MEDS: hydrOXYzine PAMOATE 25 MG CAPSULE (FP) PO PRN ×2 (10:25→21:39)
[2022-02-18] MEDS: QUEtiapine FUMARATE 25 MG TABLET PO SCH (21:39)
[2022-02-18] MEDS: THIAMINE HCL 100 MG TABLET (FP) PO SCH (21:39)
[2022-02-19] MEDS ORDERED: methaDONE HCL 40 MG DISPERSABLE TABLET ONE (04:00)
[2022-02-19] MEDS ORDERED: methaDONE HCL 10 MG TABLET ONE (04:00)
[2022-02-19] MEDS: methaDONE 40 MG, methaDONE 10 MG PO SCH (06:12)
[2022-02-19] MEDS: NICOTINE 7 MG/24 HOURS TOPICAL PATCH TD SCH (10:11)
[2022-02-19] MEDS: PRENATAL VITAMINS W/ FOLIC ACID TABLET (FP) PO SCH (10:11)
[2022-02-19] MEDS: THIAMINE HCL 100 MG TABLET (FP) PO SCH (21:47)
[2022-02-19] MEDS: QUEtiapine FUMARATE 25 MG TABLET PO SCH (21:47)
[2022-02-20] MEDS ORDERED: methaDONE HCL 40 MG DISPERSABLE TABLET ONE (03:43)
[2022-02-20] MEDS ORDERED: methaDONE HCL 10 MG TABLET ONE (03:43)
[2022-02-20] MEDS: methaDONE 40 MG, methaDONE 10 MG PO SCH (06:20)
[2022-02-20] MEDS: PRENATAL VITAMINS W/ FOLIC ACID TABLET (FP) PO SCH (10:17)
[2022-02-20] MEDS: NICOTINE 7 MG/24 HOURS TOPICAL PATCH TD SCH (10:17)
[2022-02-20] MEDS: THIAMINE HCL 100 MG TABLET (FP) PO SCH (21:26)
[2022-02-20] MEDS: QUEtiapine FUMARATE 25 MG TABLET PO SCH (21:26)
[2022-02-20] MEDS: hydrOXYzine PAMOATE 25 MG CAPSULE (FP) PO PRN (21:26)
[2022-02-21] MEDS ORDERED: methaDONE HCL 40 MG DISPERSABLE TABLET ONE (03:18)
[2022-02-21] MEDS ORDERED: methaDONE HCL 10 MG TABLET ONE (03:18)
[2022-02-21] MEDS: methaDONE 40 MG, methaDONE 10 MG PO SCH (06:31)
[2022-02-21] MEDS: NICOTINE 7 MG/24 HOURS TOPICAL PATCH TD SCH (10:10)
[2022-02-21] MEDS: hydrOXYzine PAMOATE 25 MG CAPSULE (FP) PO PRN ×2 (10:10→21:45)
[2022-02-21] MEDS: PRENATAL VITAMINS W/ FOLIC ACID TABLET (FP) PO SCH (10:10)
[2022-02-21] MEDS: THIAMINE HCL 100 MG TABLET (FP) PO SCH (21:45)
[2022-02-21] MEDS: QUEtiapine FUMARATE 25 MG TABLET PO SCH (21:45)
[2022-02-22] MEDS ORDERED: methaDONE HCL 40 MG DISPERSABLE TABLET ONE (05:34)
[2022-02-22] MEDS ORDERED: methaDONE HCL 10 MG TABLET ONE (05:34)
[2022-02-22] MEDS: methaDONE 40 MG, methaDONE 10 MG PO SCH (07:15)
[2022-02-22] MEDS: hydrOXYzine PAMOATE 25 MG CAPSULE (FP) PO PRN (10:26)
[2022-02-22] MEDS: PRENATAL VITAMINS W/ FOLIC ACID TABLET (FP) PO SCH (10:26)
[2022-02-22] MEDS: NICOTINE 7 MG/24 HOURS TOPICAL PATCH TD SCH (10:27)
[2022-02-22] MEDS: QUEtiapine FUMARATE 25 MG TABLET PO SCH (22:00)
[2022-02-22] MEDS: THIAMINE HCL 100 MG TABLET (FP) PO SCH (22:00)
[2022-02-23] MEDS ORDERED: methaDONE HCL 10 MG TABLET ONE (04:54)
[2022-02-23] MEDS ORDERED: methaDONE HCL 40 MG DISPERSABLE TABLET ONE (04:55)
[2022-02-23] MEDS: methaDONE 40 MG, methaDONE 10 MG PO SCH (06:55)
[2022-02-23] MEDS: PRENATAL VITAMINS W/ FOLIC ACID TABLET (FP) PO SCH (10:27)
[2022-02-23] MEDS: NICOTINE 7 MG/24 HOURS TOPICAL PATCH TD SCH (10:27)
[2022-02-23] MEDS: hydrOXYzine PAMOATE 25 MG CAPSULE (FP) PO PRN (10:28)
[2022-02-23] MEDS: THIAMINE HCL 100 MG TABLET (FP) PO SCH (21:40)
[2022-02-23] MEDS: QUEtiapine FUMARATE 25 MG TABLET PO SCH (21:40)
[2022-02-24] MEDS ORDERED: methaDONE HCL 40 MG DISPERSABLE TABLET ONE (04:08)
[2022-02-24] MEDS ORDERED: methaDONE HCL 10 MG TABLET ONE (04:08)
[2022-02-24] MEDS: methaDONE 40 MG, methaDONE 10 MG PO SCH (07:08)
[2022-02-24] MEDS: NICOTINE 7 MG/24 HOURS TOPICAL PATCH TD SCH (10:02)
[2022-02-24] MEDS: hydrOXYzine PAMOATE 25 MG CAPSULE (FP) PO PRN ×2 (10:02→21:38)
[2022-02-24] MEDS: PRENATAL VITAMINS W/ FOLIC ACID TABLET (FP) PO SCH (10:02)
[2022-02-24] MEDS: QUEtiapine FUMARATE 25 MG TABLET PO SCH (21:38)
[2022-02-24] MEDS: THIAMINE HCL 100 MG TABLET (FP) PO SCH (21:38)
[2022-02-25] MEDS ORDERED: methaDONE HCL 40 MG DISPERSABLE TABLET ONE (04:04)
[2022-02-25] MEDS ORDERED: methaDONE HCL 10 MG TABLET ONE (04:04)
[2022-02-25] MEDS: methaDONE 40 MG, methaDONE 10 MG PO SCH (06:30)
[2022-02-25] MEDS: hydrOXYzine PAMOATE 25 MG CAPSULE (FP) PO PRN ×2 (10:03→21:26)
[2022-02-25] MEDS: PRENATAL VITAMINS W/ FOLIC ACID TABLET (FP) PO SCH (10:04)
[2022-02-25] MEDS: NICOTINE 7 MG/24 HOURS TOPICAL PATCH TD SCH (10:04)
[2022-02-25] MEDS: QUEtiapine FUMARATE 25 MG TABLET PO SCH (21:26)
[2022-02-25] MEDS: THIAMINE HCL 100 MG TABLET (FP) PO SCH (21:26)
[2022-02-26] MEDS ORDERED: methaDONE HCL 40 MG DISPERSABLE TABLET ONE (03:30)
[2022-02-26] MEDS ORDERED: methaDONE HCL 10 MG TABLET ONE (03:30)
[2022-02-26] MEDS: methaDONE 40 MG, methaDONE 10 MG PO SCH (06:41)
[2022-02-26 07:06] VITALS: BP 138/72; PULSE 65; TEMP 97.1
[2022-02-26] MEDS: PRENATAL VITAMINS W/ FOLIC ACID TABLET (FP) PO SCH (09:34)
[2022-02-26] MEDS: NICOTINE 7 MG/24 HOURS TOPICAL PATCH TD SCH (09:34)
== END 2022-02-26 09:40 | disposition home or self-care (01) | DRG 772 ==
LOC: YASAS 13:58 → Y5N 19:50
PROVIDERS: ADMIT Allergy & Immunology; ATTEND Allergy & Immunology
PROC: HZ42ZZZ Group Counseling for Substance Abuse Treatment, Cognitive-Behavioral (ICD-10-PCS; principal; 2022-02-09)
DX: F10.20 Alcohol dependence, uncomplicated (principal); F11.20 Opioid dependence, uncomplicated; F14.20 Cocaine dependence, uncomplicated; F16.20 Hallucinogen dependence, uncomplicated; F19.20 Other psychoactive substance dependence, uncomplicated; F12.20 Cannabis dependence, uncomplicated; F17.210 Nicotine dependence, cigarettes, uncomplicated; F19.282 Other psychoactive substance dependence with psychoactive substance-induced sleep disorder; F19.24 Other psychoactive substance dependence with psychoactive substance-induced mood disorder; F41.9 Anxiety disorder, unspecified; F32.A Depression, unspecified; R29.6 Repeated falls; Z86.2 Personal history of diseases of the blood and blood-forming organs and certain disorders involving the immune mechanism; Z28.310 Unvaccinated for COVID-19; Z56.0 Unemployment, unspecified; Z59.00 Homelessness unspecified
CPT/HCPCS: 36415; 80053; 81003; 85027; 86780; 86803; 87086; C9803-CS; U0003; U0005

== ENCOUNTER 2022-03-17 12:45 | Inpatient (IN) | payer OTHER ==
[2022-03-17 13:09] VITALS: BMI 23.3
[2022-03-17] MEDS ORDERED: MAGNESIUM CITRATE 300 ML BOTTLE PO PRN (13:27)
[2022-03-17] MEDS ORDERED: IBUPROFEN 400 MG TABLET (FP) PO PRN (13:27)
[2022-03-17] MEDS ORDERED: ACETAMINOPHEN 325 MG TABLET (FP) PO PRN ×2 (13:27)
[2022-03-17] MEDS ORDERED: BENZOCAINE/MENTHOL (CHLORASEPTIC ) LOZENGE MM PRN (13:27)
[2022-03-17] MEDS ORDERED: NICOTINE 10 MG CARTRIDGE (INHALER) IH PRN (13:27)
[2022-03-17] MEDS ORDERED: NALOXONE HCL (KLOXXADO) 8 MG SPRAY NS PRN (13:27)
[2022-03-17] MEDS ORDERED: BISMUTH SUBSALICYLATE 262 MG/15 ML BTL PO PRN (13:27)
[2022-03-17] MEDS ORDERED: DICYCLOMINE HCL 10 MG CAPSULE PO PRN (13:27)
[2022-03-17] MEDS ORDERED: MAGNESIUM HYDROX 2400MG/30ML ORAL SUSPENSION 30 ML CUP PO PRN (13:27)
[2022-03-17] MEDS ORDERED: ONDANSETRON *ODT* 4 MG TABLET SL PRN (13:27)
[2022-03-17] MEDS ORDERED: IBUPROFEN 600 MG TABLET (FP) PO PRN (13:27)
[2022-03-17] MEDS ORDERED: LOPERAMIDE HCL 2 MG CAPSULE PO PRN (13:27)
[2022-03-17] MEDS ORDERED: METHOCARBAMOL 500 MG TABLET PO PRN (13:27)
[2022-03-17] MEDS ORDERED: MAG HYDROX/AL HYDROX/SIMETH 30 ML UNIT-DOSE CUP PO PRN (13:27)
[2022-03-17] MEDS: hydrOXYzine PAMOATE 25 MG CAPSULE (FP) PO SCH ×3 (15:51→22:36)
[2022-03-17] MEDS: PRENATAL VITAMINS W/ FOLIC ACID TABLET (FP) PO SCH (15:52)
[2022-03-17] MEDS: MELATONIN 5 MG TABLETS PO SCH (22:36)
[2022-03-17] MEDS: THIAMINE HCL 100 MG TABLET (FP) PO SCH (22:36)
[2022-03-18] MEDS: hydrOXYzine PAMOATE 25 MG CAPSULE (FP) PO SCH ×5 (06:00→22:35)
[2022-03-18] MEDS ORDERED: methaDONE HCL 10 MG TABLET (FOR DETOX USE ONLY) PO ONE (09:36)
[2022-03-18] MEDS ORDERED: diazePAM 5 MG TABLET PO PRN (09:36)
[2022-03-18] MEDS ORDERED: cloNIDine HCL 0.1 MG TABLET PO PRN (09:36)
[2022-03-18 10:13] LABS: HEMATOCRIT 37.2 % (35.4-49); HEMOGLOBIN 12.2 GM/dL (11.7-16.9); MCH 30.7 pg (25.7-33.7); MCHC 32.8 g/dl (32.0-35.9); MEAN CELL VOLUME 93.7 fl (80-96); MEAN PLT VOLUME 9.4 fl (7.5-11.1); PLATELET COUNT 252 10^3/uL (134-434); RBC 3.97 M/mm3 (4.00-5.60); RDW 14.2 % (11.9-15.9); WHITE BLOOD COUNT 5.5 K/mm3 (4.0-10.0)
[2022-03-18 10:20] LABS: CALCIUM 9.1 mg/dL (8.5-10.1)
[2022-03-18 10:21] LABS: ALBUMIN 3.8 g/dl (3.4-5.0); BLOOD UREA NITROGEN 16.6 mg/dL (7-18)
[2022-03-18 10:24] LABS: CREATININE 1.1 mg/dL (0.55-1.3)
[2022-03-18 10:25] LABS: BILIRUBIN,TOTAL 0.4 mg/dL (0.2-1); TOT PROT 6.6 g/dl (6.4-8.2)
[2022-03-18] MEDS: PRENATAL VITAMINS W/ FOLIC ACID TABLET (FP) PO SCH (10:40)
[2022-03-18] MEDS: diazePAM 5 MG TABLET PO SCH ×3 (10:45→22:35)
[2022-03-18] MEDS: THIAMINE HCL 100 MG TABLET (FP) PO SCH (22:35)
[2022-03-18] MEDS: MELATONIN 5 MG TABLETS PO SCH (22:35)
[2022-03-19] MEDS: diazePAM 5 MG TABLET PO SCH ×4 (06:56→22:30)
[2022-03-19] MEDS: hydrOXYzine PAMOATE 25 MG CAPSULE (FP) PO SCH ×5 (06:56→22:30)
[2022-03-19] MEDS ORDERED: methaDONE HCL 10 MG TABLET (FOR DETOX USE ONLY) ONE (09:26)
[2022-03-19] MEDS: PRENATAL VITAMINS W/ FOLIC ACID TABLET (FP) PO SCH (11:08)
[2022-03-19] MEDS: MELATONIN 5 MG TABLETS PO SCH (22:30)
[2022-03-19] MEDS: THIAMINE HCL 100 MG TABLET (FP) PO SCH (22:30)
[2022-03-20] MEDS: hydrOXYzine PAMOATE 25 MG CAPSULE (FP) PO SCH ×5 (05:37→23:06)
[2022-03-20] MEDS: diazePAM 5 MG TABLET PO SCH ×3 (05:37→23:06)
[2022-03-20] MEDS ORDERED: methaDONE HCL 10 MG TABLET (FOR DETOX USE ONLY) PO ONE (10:00)
[2022-03-20] MEDS: PRENATAL VITAMINS W/ FOLIC ACID TABLET (FP) PO SCH (10:53)
[2022-03-20] MEDS: MELATONIN 5 MG TABLETS PO SCH (23:06)
[2022-03-20] MEDS: THIAMINE HCL 100 MG TABLET (FP) PO SCH (23:07)
[2022-03-21] MEDS: hydrOXYzine PAMOATE 25 MG CAPSULE (FP) PO SCH ×5 (06:00→23:00)
[2022-03-21] MEDS: diazePAM 5 MG TABLET PO SCH ×2 (06:00→17:38)
[2022-03-21] MEDS ORDERED: methaDONE HCL 10 MG TABLET (FOR DETOX USE ONLY) ONE (08:39)
[2022-03-21] MEDS: PRENATAL VITAMINS W/ FOLIC ACID TABLET (FP) PO SCH (10:22)
[2022-03-21] MEDS: THIAMINE HCL 100 MG TABLET (FP) PO SCH (23:00)
[2022-03-21] MEDS: MELATONIN 5 MG TABLETS PO SCH (23:00)
[2022-03-22] MEDS ORDERED: diazePAM 5 MG TABLET PO ONE (06:00)
[2022-03-22] MEDS: hydrOXYzine PAMOATE 25 MG CAPSULE (FP) PO SCH ×2 (06:20→10:41)
[2022-03-22 09:13] VITALS: BP 121/70; PULSE 73; TEMP 97.3
[2022-03-22] MEDS ORDERED: methaDONE HCL 10 MG TABLET (FOR DETOX USE ONLY) PO ONE (10:00)
[2022-03-22] MEDS: PRENATAL VITAMINS W/ FOLIC ACID TABLET (FP) PO SCH (10:39)
== END 2022-03-22 11:02 | disposition home or self-care (01) | DRG 773 ==
LOC: YASAS 12:45 → Y3N 14:56
PROVIDERS: ADMIT Allergy & Immunology; ATTEND Surgery
PROC: HZ2ZZZZ Detoxification Services for Substance Abuse Treatment (ICD-10-PCS; principal; 2022-03-17)
DX: F11.23 Opioid dependence with withdrawal (principal); F10.230 Alcohol dependence with withdrawal, uncomplicated; F14.20 Cocaine dependence, uncomplicated; F12.20 Cannabis dependence, uncomplicated; F17.210 Nicotine dependence, cigarettes, uncomplicated; F19.24 Other psychoactive substance dependence with psychoactive substance-induced mood disorder; F41.9 Anxiety disorder, unspecified; F32.A Depression, unspecified; F43.10 Post-traumatic stress disorder, unspecified; K21.9 Gastro-esophageal reflux disease without esophagitis; Z28.311 Partially vaccinated for COVID-19; Z56.0 Unemployment, unspecified; Z59.00 Homelessness unspecified
CPT/HCPCS: 36415; 80053; 85027; 86780; 87811; C9803-CS; U0003; U0005

== ENCOUNTER 2022-05-04 15:53 | Inpatient (IN) | payer OTHER ==
[2022-05-04 18:26] VITALS: BMI 20.7
[2022-05-04] MEDS ORDERED: ACETAMINOPHEN 325 MG TABLET (FP) PO PRN ×2 (19:49)
[2022-05-04] MEDS ORDERED: LOPERAMIDE HCL 2 MG CAPSULE PO PRN (19:49)
[2022-05-04] MEDS ORDERED: IBUPROFEN 600 MG TABLET (FP) PO PRN (19:49)
[2022-05-04] MEDS ORDERED: NICOTINE 10 MG CARTRIDGE (INHALER) IH PRN (19:49)
[2022-05-04] MEDS ORDERED: ONDANSETRON *ODT* 4 MG TABLET SL PRN (19:49)
[2022-05-04] MEDS ORDERED: MAGNESIUM CITRATE 300 ML BOTTLE PO PRN (19:49)
[2022-05-04] MEDS ORDERED: BENZOCAINE/MENTHOL (CHLORASEPTIC ) LOZENGE MM PRN (19:49)
[2022-05-04] MEDS ORDERED: IBUPROFEN 400 MG TABLET (FP) PO PRN (19:49)
[2022-05-04] MEDS ORDERED: diazePAM 5 MG TABLET PO PRN (19:49)
[2022-05-04] MEDS ORDERED: BISMUTH SUBSALICYLATE 524 MG/30 ML PO PRN (19:49)
[2022-05-04] MEDS ORDERED: DICYCLOMINE HCL 10 MG CAPSULE PO PRN (19:49)
[2022-05-04] MEDS ORDERED: MAGNESIUM HYDROX 2400MG/30ML ORAL SUSPENSION 30 ML CUP PO PRN (19:49)
[2022-05-04] MEDS ORDERED: cloNIDine HCL 0.1 MG TABLET PO PRN (19:49)
[2022-05-04] MEDS ORDERED: MAG HYDROX/AL HYDROX/SIMETH 30 ML UNIT-DOSE CUP PO PRN (19:49)
[2022-05-04] MEDS ORDERED: methaDONE HCL 10 MG TABLET (FOR DETOX USE ONLY) PO ONE (21:05)
[2022-05-04] MEDS: diazePAM 5 MG TABLET PO SCH (22:58)
[2022-05-04] MEDS: THIAMINE HCL 100 MG TABLET (FP) PO SCH (22:59)
[2022-05-04] MEDS: MELATONIN 5 MG TABLETS PO SCH (23:00)
[2022-05-04] MEDS: PRENATAL VITAMINS W/ FOLIC ACID TABLET (FP) PO SCH (23:01)
[2022-05-04] MEDS: hydrOXYzine PAMOATE 25 MG CAPSULE (FP) PO SCH (23:02)
[2022-05-05] MEDS: diazePAM 5 MG TABLET PO SCH ×4 (07:25→23:19)
[2022-05-05] MEDS: hydrOXYzine PAMOATE 25 MG CAPSULE (FP) PO SCH ×5 (07:26→23:19)
[2022-05-05] MEDS ORDERED: methaDONE HCL 10 MG TABLET (FOR DETOX USE ONLY) ONE (08:36)
[2022-05-05] MEDS: METHOCARBAMOL 500 MG TABLET PO PRN (10:01)
[2022-05-05] MEDS: PRENATAL VITAMINS W/ FOLIC ACID TABLET (FP) PO SCH (10:01)
[2022-05-05] MEDS: MELATONIN 5 MG TABLETS PO SCH (23:18)
[2022-05-05] MEDS: THIAMINE HCL 100 MG TABLET (FP) PO SCH (23:19)
[2022-05-06] MEDS: diazePAM 5 MG TABLET PO SCH ×3 (06:30→22:40)
[2022-05-06] MEDS: hydrOXYzine PAMOATE 25 MG CAPSULE (FP) PO SCH ×5 (06:30→22:40)
[2022-05-06] MEDS ORDERED: methaDONE HCL 10 MG TABLET (FOR DETOX USE ONLY) PO ONE (10:00)
[2022-05-06] MEDS: PRENATAL VITAMINS W/ FOLIC ACID TABLET (FP) PO SCH (10:53)
[2022-05-06] MEDS: MELATONIN 5 MG TABLETS PO SCH (22:40)
[2022-05-06] MEDS: THIAMINE HCL 100 MG TABLET (FP) PO SCH (22:40)
[2022-05-07] MEDS: hydrOXYzine PAMOATE 25 MG CAPSULE (FP) PO SCH ×6 (08:02→22:54)
[2022-05-07] MEDS: diazePAM 5 MG TABLET PO SCH ×3 (08:02→19:26)
[2022-05-07] MEDS ORDERED: methaDONE HCL 10 MG TABLET (FOR DETOX USE ONLY) ONE (09:49)
[2022-05-07] MEDS: PRENATAL VITAMINS W/ FOLIC ACID TABLET (FP) PO SCH (10:17)
[2022-05-07] MEDS: METHOCARBAMOL 500 MG TABLET PO PRN (10:17)
[2022-05-07] MEDS: THIAMINE HCL 100 MG TABLET (FP) PO SCH (22:54)
[2022-05-07] MEDS: MELATONIN 5 MG TABLETS PO SCH (22:54)
[2022-05-08] MEDS: hydrOXYzine PAMOATE 25 MG CAPSULE (FP) PO SCH ×5 (05:58→23:37)
[2022-05-08] MEDS ORDERED: diazePAM 5 MG TABLET PO ONE (06:00)
[2022-05-08 06:24] VITALS: RESP 18
[2022-05-08 09:23] LABS: HEMATOCRIT 38.5 % (35.4-49); HEMOGLOBIN 13.1 GM/dL (11.7-16.9); MCH 31.6 pg (25.7-33.7); MCHC 34.1 g/dl (32.0-35.9); MEAN CELL VOLUME 92.7 fl (80-96); MEAN PLT VOLUME 9.1 fl (7.5-11.1); PLATELET COUNT 244 10^3/uL (134-434); RBC 4.15 M/mm3 (4.00-5.60); RDW 13.6 % (11.9-15.9); WHITE BLOOD COUNT 5.2 K/mm3 (4.0-10.0)
[2022-05-08 09:42] LABS: CALCIUM 8.8 mg/dL (8.5-10.1)
[2022-05-08 09:43] LABS: ALBUMIN 3.1 g/dl (3.4-5.0); BLOOD UREA NITROGEN 17.8 mg/dL (7-18)
[2022-05-08 09:46] LABS: BILIRUBIN,TOTAL 0.2 mg/dL (0.2-1); CREATININE 0.7 mg/dL (0.55-1.3)
[2022-05-08 09:47] LABS: TOT PROT 5.8 g/dl (6.4-8.2)
[2022-05-08] MEDS ORDERED: methaDONE HCL 10 MG TABLET (FOR DETOX USE ONLY) PO ONE (10:00)
[2022-05-08] MEDS: PRENATAL VITAMINS W/ FOLIC ACID TABLET (FP) PO SCH (10:57)
[2022-05-08 18:06] VITALS: BP 120/63; PULSE 63; TEMP 98.2
[2022-05-08] MEDS: THIAMINE HCL 100 MG TABLET (FP) PO SCH (23:37)
[2022-05-08] MEDS: MELATONIN 5 MG TABLETS PO SCH (23:37)
[2022-05-09] MEDS: hydrOXYzine PAMOATE 25 MG CAPSULE (FP) PO SCH ×2 (06:42→10:28)
[2022-05-09] MEDS: PRENATAL VITAMINS W/ FOLIC ACID TABLET (FP) PO SCH (10:27)
== END 2022-05-09 10:32 | disposition home or self-care (01) | DRG 773 ==
LOC: YASAS 15:53 → Y3N 19:55
PROVIDERS: ADMIT Allergy & Immunology; ATTEND Surgery
PROC: HZ2ZZZZ Detoxification Services for Substance Abuse Treatment (ICD-10-PCS; principal; 2022-05-04)
DX: F11.23 Opioid dependence with withdrawal (principal); F10.230 Alcohol dependence with withdrawal, uncomplicated; F14.20 Cocaine dependence, uncomplicated; F12.20 Cannabis dependence, uncomplicated; F17.210 Nicotine dependence, cigarettes, uncomplicated; E46 Unspecified protein-calorie malnutrition; Z68.20 Body mass index [BMI] 20.0-20.9, adult; Z86.59 Personal history of other mental and behavioral disorders; Z28.310 Unvaccinated for COVID-19; Z59.00 Homelessness unspecified
CPT/HCPCS: 36415; 80053; 85027; 86780; C9803-CS; U0003; U0005

== ENCOUNTER 2022-05-22 13:38 | Inpatient (IN) | payer OTHER ==
[2022-05-22 15:59] VITALS: BMI 19.5
[2022-05-22] MEDS ORDERED: LOPERAMIDE HCL 2 MG CAPSULE PO PRN (19:32)
[2022-05-22] MEDS ORDERED: BENZOCAINE/MENTHOL (CHLORASEPTIC ) LOZENGE MM PRN (19:32)
[2022-05-22] MEDS ORDERED: IBUPROFEN 600 MG TABLET (FP) PO PRN (19:32)
[2022-05-22] MEDS ORDERED: NICOTINE 10 MG CARTRIDGE (INHALER) IH PRN (19:32)
[2022-05-22] MEDS ORDERED: BISMUTH SUBSALICYLATE 524 MG/30 ML PO PRN (19:32)
[2022-05-22] MEDS ORDERED: MAGNESIUM HYDROX 2400MG/30ML ORAL SUSPENSION 30 ML CUP PO PRN (19:32)
[2022-05-22] MEDS ORDERED: IBUPROFEN 400 MG TABLET (FP) PO PRN (19:32)
[2022-05-22] MEDS ORDERED: MAG HYDROX/AL HYDROX/SIMETH 30 ML UNIT-DOSE CUP PO PRN (19:32)
[2022-05-22] MEDS ORDERED: METHOCARBAMOL 500 MG TABLET PO PRN (19:32)
[2022-05-22] MEDS ORDERED: DICYCLOMINE HCL 10 MG CAPSULE PO PRN (19:32)
[2022-05-22] MEDS ORDERED: ACETAMINOPHEN 325 MG TABLET (FP) PO PRN ×2 (19:32)
[2022-05-22] MEDS ORDERED: MAGNESIUM CITRATE 300 ML BOTTLE PO PRN (19:32)
[2022-05-22] MEDS ORDERED: NICOTINE POLACRILEX 2 MG GUM BUC PRN (19:32)
[2022-05-22] MEDS ORDERED: ONDANSETRON *ODT* 4 MG TABLET SL PRN (19:32)
[2022-05-22] MEDS: MELATONIN 5 MG TABLETS PO SCH (22:54)
[2022-05-22] MEDS: hydrOXYzine PAMOATE 25 MG CAPSULE (FP) PO SCH (22:54)
[2022-05-22] MEDS: THIAMINE HCL 100 MG TABLET (FP) PO SCH (22:55)
[2022-05-23] MEDS: hydrOXYzine PAMOATE 25 MG CAPSULE (FP) PO SCH ×5 (07:42→22:22)
[2022-05-23] MEDS: PRENATAL VITAMINS W/ FOLIC ACID TABLET (FP) PO SCH (10:43)
[2022-05-23 10:52] LABS: HEMATOCRIT 33.1 % (35.4-49); HEMOGLOBIN 11.2 GM/dL (11.7-16.9); MCH 31.5 pg (25.7-33.7); MEAN CELL VOLUME 92.5 fl (80-96); MEAN PLT VOLUME 9.5 fl (7.5-11.1); PLATELET COUNT 227 10^3/uL (134-434); RBC 3.57 M/mm3 (4.00-5.60); RDW 13.3 % (11.9-15.9)
[2022-05-23 11:20] LABS: CALCIUM 8.1 mg/dL (8.5-10.1)
[2022-05-23 11:21] LABS: BLOOD UREA NITROGEN 12.6 mg/dL (7-18)
[2022-05-23 11:24] LABS: CREATININE 0.7 mg/dL (0.55-1.3)
[2022-05-23 11:26] LABS: BILIRUBIN,TOTAL 0.4 mg/dL (0.2-1); TOT PROT 5.4 g/dl (6.4-8.2)
[2022-05-23] MEDS: MELATONIN 5 MG TABLETS PO SCH (22:22)
[2022-05-23] MEDS: THIAMINE HCL 100 MG TABLET (FP) PO SCH (22:22)
[2022-05-24] MEDS: hydrOXYzine PAMOATE 25 MG CAPSULE (FP) PO SCH ×2 (06:11→10:17)
[2022-05-24 06:40] VITALS: RESP 18
[2022-05-24 09:23] VITALS: BP 149/80; PULSE 60; TEMP 96.9
[2022-05-24] MEDS: PRENATAL VITAMINS W/ FOLIC ACID TABLET (FP) PO SCH (10:17)
== END 2022-05-24 13:41 | disposition other institution (70) | DRG 773 ==
LOC: YASAS 13:38 → Y3N 21:35
PROVIDERS: ADMIT Allergy & Immunology; ATTEND Psychiatry & Neurology Psychiatry
PROC: HZ2ZZZZ Detoxification Services for Substance Abuse Treatment (ICD-10-PCS; principal; 2022-05-22)
DX: F11.20 Opioid dependence, uncomplicated (principal); F10.20 Alcohol dependence, uncomplicated; F14.20 Cocaine dependence, uncomplicated; F12.20 Cannabis dependence, uncomplicated; F17.210 Nicotine dependence, cigarettes, uncomplicated; D64.9 Anemia, unspecified; Z28.310 Unvaccinated for COVID-19
CPT/HCPCS: 36415; 80053; 85027; 86780; C9803-CS; U0003; U0005

== ENCOUNTER 2022-06-26 15:54 | Inpatient (IN) | payer OTHER ==
[2022-06-26 18:27] VITALS: BMI 18.3
[2022-06-26] MEDS ORDERED: IBUPROFEN 400 MG TABLET (FP) PO PRN (19:05)
[2022-06-26] MEDS ORDERED: NICOTINE POLACRILEX 2 MG GUM BUC PRN (19:05)
[2022-06-26] MEDS ORDERED: BENZOCAINE/MENTHOL (CHLORASEPTIC ) LOZENGE MM PRN (19:05)
[2022-06-26] MEDS ORDERED: guaiFENesin 200 MG/10 ML 10 ML UNIT-DOSE CUPS PO PRN (19:05)
[2022-06-26] MEDS ORDERED: IBUPROFEN 600 MG TABLET (FP) PO PRN (19:05)
[2022-06-26] MEDS ORDERED: NALOXONE HCL (KLOXXADO) 8 MG SPRAY NS PRN (19:05)
[2022-06-26] MEDS ORDERED: P-EPHED 60MG/TRIPROLIDI 2.5MG TABLET PO PRN (19:05)
[2022-06-26] MEDS ORDERED: LOPERAMIDE HCL 2 MG CAPSULE PO PRN (19:05)
[2022-06-26] MEDS ORDERED: DICYCLOMINE HCL 10 MG CAPSULE PO PRN (19:05)
[2022-06-26] MEDS ORDERED: BISMUTH SUBSALICYLATE 524 MG/30 ML PO PRN (19:05)
[2022-06-26] MEDS ORDERED: MAGNESIUM HYDROX 2400MG/30ML ORAL SUSPENSION 30 ML CUP PO PRN (19:05)
[2022-06-26] MEDS ORDERED: hydrOXYzine PAMOATE 25 MG CAPSULE (FP) PO PRN (19:05)
[2022-06-26] MEDS ORDERED: MAGNESIUM CITRATE 300 ML BOTTLE PO PRN (19:05)
[2022-06-26] MEDS ORDERED: MAG HYDROX/AL HYDROX/SIMETH 30 ML UNIT-DOSE CUP PO PRN (19:05)
[2022-06-26] MEDS ORDERED: ACETAMINOPHEN 325 MG TABLET (FP) PO PRN ×2 (19:05)
[2022-06-26] MEDS ORDERED: ONDANSETRON *ODT* 4 MG TABLET SL PRN (19:05)
[2022-06-26] MEDS: THIAMINE HCL 100 MG TABLET (FP) PO SCH (22:42)
[2022-06-27] MEDS: PRENATAL VITAMINS W/ FOLIC ACID TABLET (FP) PO SCH (10:30)
[2022-06-27 10:57] LABS: HEMATOCRIT 38.6 % (35.4-49); HEMOGLOBIN 12.8 GM/dL (11.7-16.9); MCH 31.5 pg (25.7-33.7); MCHC 33.3 g/dl (32.0-35.9); MEAN CELL VOLUME 94.7 fl (80-96); MEAN PLT VOLUME 9.6 fl (7.5-11.1); PLATELET COUNT 241 10^3/uL (134-434); RBC 4.08 M/mm3 (4.00-5.60); RDW 14.3 % (11.9-15.9)
[2022-06-27] MEDS ORDERED: methaDONE HCL 10 MG TABLET (FOR DETOX USE ONLY) PO ONE (11:15)
[2022-06-27 11:21] LABS: ALBUMIN 3.4 g/dl (3.4-5.0); BLOOD UREA NITROGEN 14.3 mg/dL (7-18)
[2022-06-27 11:22] LABS: CALCIUM 8.8 mg/dL (8.5-10.1)
[2022-06-27 11:23] LABS: BILIRUBIN,TOTAL 0.3 mg/dL (0.2-1); TOT PROT 5.7 g/dl (6.4-8.2)
[2022-06-27 11:24] LABS: CREATININE 0.9 mg/dL (0.55-1.3)
[2022-06-27] MEDS: METHOCARBAMOL 500 MG TABLET PO PRN (11:31)
[2022-06-27] MEDS: diazePAM 5 MG TABLET PO PRN ×3 (11:33→22:13)
[2022-06-27] MEDS: THIAMINE HCL 100 MG TABLET (FP) PO SCH (22:13)
[2022-06-28] MEDS: PRENATAL VITAMINS W/ FOLIC ACID TABLET (FP) PO SCH (10:16)
[2022-06-28] MEDS: diazePAM 5 MG TABLET PO PRN (10:16)
[2022-06-28] MEDS: METHOCARBAMOL 500 MG TABLET PO PRN ×2 (10:18→22:21)
[2022-06-28] MEDS: MELATONIN 5 MG TABLETS PO PRN (22:20)
[2022-06-28] MEDS: THIAMINE HCL 100 MG TABLET (FP) PO SCH (22:21)
[2022-06-29] MEDS ORDERED: methaDONE HCL 10 MG TABLET (FOR DETOX USE ONLY) PO ONE (10:00)
[2022-06-29] MEDS: PRENATAL VITAMINS W/ FOLIC ACID TABLET (FP) PO SCH (10:41)
[2022-06-29] MEDS: METHOCARBAMOL 500 MG TABLET PO PRN (10:41)
[2022-06-29] MEDS: diazePAM 5 MG TABLET PO PRN ×3 (10:41→23:08)
[2022-06-29] MEDS: cloNIDine HCL 0.1 MG TABLET PO PRN ×2 (17:44→23:08)
[2022-06-29] MEDS: THIAMINE HCL 100 MG TABLET (FP) PO SCH (23:08)
[2022-06-30] MEDS: diazePAM 5 MG TABLET PO PRN (09:50)
[2022-06-30] MEDS: PRENATAL VITAMINS W/ FOLIC ACID TABLET (FP) PO SCH (09:50)
[2022-06-30] MEDS: THIAMINE HCL 100 MG TABLET (FP) PO SCH (23:03)
[2022-07-01] MEDS ORDERED: methaDONE HCL 10 MG TABLET (FOR DETOX USE ONLY) PO ONE (10:00)
[2022-07-01] MEDS: METHOCARBAMOL 500 MG TABLET PO PRN ×2 (11:14→23:00)
[2022-07-01] MEDS: PRENATAL VITAMINS W/ FOLIC ACID TABLET (FP) PO SCH (11:21)
[2022-07-01] MEDS: MELATONIN 5 MG TABLETS PO PRN (22:59)
[2022-07-01] MEDS: THIAMINE HCL 100 MG TABLET (FP) PO SCH (22:59)
[2022-07-02 09:24] VITALS: BP 149/88; PULSE 76; RESP 16; TEMP 98.4
[2022-07-02] MEDS: PRENATAL VITAMINS W/ FOLIC ACID TABLET (FP) PO SCH (09:24)
== END 2022-07-02 09:31 | disposition home or self-care (01) | DRG 773 ==
LOC: YASAS 15:54 → Y3N 17:33 → UNDOADMIN 17:33 → Y3N 06-29 14:12
PROVIDERS: ADMIT Allergy & Immunology; ATTEND Surgery
PROC: HZ2ZZZZ Detoxification Services for Substance Abuse Treatment (ICD-10-PCS; principal; 2022-06-26)
DX: F11.23 Opioid dependence with withdrawal (principal); F10.230 Alcohol dependence with withdrawal, uncomplicated; F14.20 Cocaine dependence, uncomplicated; F12.20 Cannabis dependence, uncomplicated; F17.210 Nicotine dependence, cigarettes, uncomplicated; F41.9 Anxiety disorder, unspecified; F32.A Depression, unspecified; F43.10 Post-traumatic stress disorder, unspecified; R63.4 Abnormal weight loss; Z68.1 Body mass index [BMI] 19.9 or less, adult; Z20.822 Contact with and (suspected) exposure to COVID-19; Z28.9 Immunization not carried out for unspecified reason; Z28.310 Unvaccinated for COVID-19; Z59.00 Homelessness unspecified
CPT/HCPCS: 36415; 80053; 85027; 86780; C9803-CS; U0003; U0005

== ENCOUNTER 2022-08-11 13:46 | Inpatient (IN) | payer OTHER ==
[2022-08-11 14:12] VITALS: BMI 18.8
[2022-08-11] MEDS ORDERED: MAGNESIUM HYDROX 2400MG/30ML ORAL SUSPENSION 30 ML CUP PO PRN (16:10)
[2022-08-11] MEDS ORDERED: ACETAMINOPHEN 325 MG TABLET (FP) PO PRN (16:10)
[2022-08-11] MEDS ORDERED: NICOTINE 10 MG CARTRIDGE (INHALER) IH PRN (16:10)
[2022-08-11] MEDS ORDERED: MAGNESIUM CITRATE 300 ML BOTTLE PO PRN (16:10)
[2022-08-11] MEDS ORDERED: LOPERAMIDE HCL 2 MG CAPSULE PO PRN (16:10)
[2022-08-11] MEDS ORDERED: P-EPHED 60MG/TRIPROLIDI 2.5MG TABLET PO PRN (16:10)
[2022-08-11] MEDS ORDERED: MAG HYDROX/AL HYDROX/SIMETH 30 ML UNIT-DOSE CUP PO PRN (16:10)
[2022-08-11] MEDS ORDERED: guaiFENesin 200 MG/10 ML 10 ML UNIT-DOSE CUPS PO PRN (16:10)
[2022-08-11] MEDS ORDERED: TUBERCULIN PPD 5 TU/0.1ML VIAL ID ONE (19:43)
[2022-08-11] MEDS: THIAMINE HCL 100 MG TABLET (FP) PO SCH (21:43)
[2022-08-11] MEDS: MELATONIN 5 MG TABLETS PO SCH (21:43)
[2022-08-11 22:12] VITALS: RESP 18
[2022-08-12] MEDS: IBUPROFEN 400 MG TABLET (FP) PO PRN ×2 (02:51→21:25)
[2022-08-12] MEDS: PRENATAL VITAMINS W/ FOLIC ACID TABLET (FP) PO SCH (09:57)
[2022-08-12] MEDS: hydrOXYzine PAMOATE 25 MG CAPSULE (FP) PO PRN (09:58)
[2022-08-12 11:28] LABS: CALCIUM 8.4 mg/dL (8.5-10.1); HEMOGLOBIN 10.8 GM/dL (11.7-16.9); MCH 31.8 pg (25.7-33.7); MCHC 32.7 g/dl (32.0-35.9); MEAN PLT VOLUME 9.8 fl (7.5-11.1); PLATELET COUNT 228 10^3/uL (134-434); RDW 13.8 % (11.9-15.9); WHITE BLOOD COUNT 4.7 K/mm3 (4.0-10.0)
[2022-08-12 11:29] LABS: BLOOD UREA NITROGEN 16.6 mg/dL (7-18)
[2022-08-12 11:29] LABS: EPI CELLS 8 /uL (0-25.1); HYALINE CASTS 2 /uL (0-3.1); URINE APPEARANCE CLEAR; URINE BACTERIA 9 /uL (0-1359); URINE BILIRUBIN NEGATIVE (NEGATIVE); URINE COLOR YELLOW; URINE GLUCOSE (UA) NEGATIVE (NEGATIVE); URINE KETONE NEGATIVE (NEGATIVE); URINE LEUK ESTERASE 1+ (NEGATIVE); URINE NITRITE NEGATIVE (NEGATIVE); URINE PROTEIN TRACE (NEGATIVE); URINE RBC 936 /uL (0-23.9); URINE UROBILINOGEN 0.2 mg/dL (0.2-1.0); URINE WBC 161 /uL (0-25.8)
[2022-08-12 11:31] LABS: CREATININE 0.7 mg/dL (0.55-1.3)
[2022-08-12 11:34] LABS: BILIRUBIN,TOTAL 0.2 mg/dL (0.2-1); TOT PROT 5.4 g/dl (6.4-8.2)
[2022-08-12 11:56] LABS: SYPHILIS W/ RPR CONF NON-REACTIVE (NONREACTIVE)
[2022-08-12] MEDS: MELATONIN 5 MG TABLETS PO SCH (21:24)
[2022-08-12] MEDS: THIAMINE HCL 100 MG TABLET (FP) PO SCH (21:24)
[2022-08-12] MEDS ORDERED: MIRTAZAPINE 15 MG TABLET (FP) PO SCH (22:00)
[2022-08-13] MEDS: hydrOXYzine PAMOATE 25 MG CAPSULE (FP) PO PRN ×2 (01:34→13:07)
[2022-08-13 06:30] VITALS: BP 140/69; PULSE 78; TEMP 97.8
[2022-08-13] MEDS: IBUPROFEN 400 MG TABLET (FP) PO PRN (09:07)
[2022-08-13] MEDS: PRENATAL VITAMINS W/ FOLIC ACID TABLET (FP) PO SCH (09:07)
== END 2022-08-13 18:06 | disposition left against medical advice (07) | DRG 770 ==
LOC: YASAS 13:46 → Y3W 19:03
PROVIDERS: ADMIT Allergy & Immunology; ATTEND Psychiatry & Neurology Pain Medicine
PROC: HZ42ZZZ Group Counseling for Substance Abuse Treatment, Cognitive-Behavioral (ICD-10-PCS; principal; 2022-08-11)
DX: F11.20 Opioid dependence, uncomplicated (principal); F10.20 Alcohol dependence, uncomplicated; F14.20 Cocaine dependence, uncomplicated; F12.20 Cannabis dependence, uncomplicated; F17.210 Nicotine dependence, cigarettes, uncomplicated; F19.282 Other psychoactive substance dependence with psychoactive substance-induced sleep disorder; F43.10 Post-traumatic stress disorder, unspecified; F32.A Depression, unspecified; D64.9 Anemia, unspecified; K21.9 Gastro-esophageal reflux disease without esophagitis; Z59.00 Homelessness unspecified; Z56.0 Unemployment, unspecified
CPT/HCPCS: 36415; 80053; 81003; 85027; 86780; 86803; C9803-CS; U0003; U0005

== ENCOUNTER 2022-10-13 13:01 | Inpatient (IN) | payer OTHER ==
[2022-10-13 15:46] VITALS: BMI 20.6
[2022-10-13] MEDS ORDERED: guaiFENesin 200 MG/10 ML 10 ML UNIT-DOSE CUPS PO PRN (16:38)
[2022-10-13] MEDS ORDERED: MAGNESIUM HYDROX 2400MG/30ML ORAL SUSPENSION 30 ML CUP PO PRN (16:38)
[2022-10-13] MEDS ORDERED: MAG HYDROX/AL HYDROX/SIMETH 30 ML UNIT-DOSE CUP PO PRN (16:38)
[2022-10-13] MEDS ORDERED: BENZOCAINE/MENTHOL (CHLORASEPTIC ) LOZENGE MM PRN (16:38)
[2022-10-13] MEDS ORDERED: IBUPROFEN 400 MG TABLET (FP) PO PRN (16:38)
[2022-10-13] MEDS ORDERED: IBUPROFEN 600 MG TABLET (FP) PO PRN (16:38)
[2022-10-13] MEDS ORDERED: LOPERAMIDE HCL 2 MG CAPSULE PO PRN (16:38)
[2022-10-13] MEDS ORDERED: BISMUTH SUBSALICYLATE 524 MG/30 ML PO PRN (16:38)
[2022-10-13] MEDS ORDERED: ONDANSETRON *ODT* 4 MG TABLET SL PRN (16:38)
[2022-10-13] MEDS ORDERED: DICYCLOMINE HCL 10 MG CAPSULE PO PRN (16:38)
[2022-10-13] MEDS ORDERED: ACETAMINOPHEN 325 MG TABLET (FP) PO PRN ×2 (16:38)
[2022-10-13] MEDS ORDERED: hydrOXYzine PAMOATE 25 MG CAPSULE (FP) PO PRN (16:38)
[2022-10-13] MEDS ORDERED: P-EPHED 60MG/TRIPROLIDI 2.5MG TABLET PO PRN (16:38)
[2022-10-13] MEDS ORDERED: NALOXONE HCL (KLOXXADO) 8 MG SPRAY NS PRN (16:38)
[2022-10-13] MEDS ORDERED: POLYETHYLENE GLYCOL (HEALTHYLAX) 3350 17 GM PACKET PO PRN (16:38)
[2022-10-13] MEDS: THIAMINE HCL 100 MG TABLET (FP) PO SCH (22:14)
[2022-10-13] MEDS: MELATONIN 5 MG TABLETS PO PRN (22:15)
[2022-10-14] MEDS ORDERED: methaDONE HCL 10 MG TABLET (FOR DETOX USE ONLY) PO ONE (09:26)
[2022-10-14] MEDS: PRENATAL VITAMINS W/ FOLIC ACID TABLET (FP) PO SCH (10:40)
[2022-10-14] MEDS: METHOCARBAMOL 500 MG TABLET PO PRN (10:40)
[2022-10-14 10:45] LABS: HEMOGLOBIN 10.1 GM/dL (11.7-16.9); MCH 32.3 pg (25.7-33.7); MCHC 33.6 g/dl (32.0-35.9); MEAN CELL VOLUME 96.1 fl (80-96); MEAN PLT VOLUME 8.9 fl (7.5-11.1); PLATELET COUNT 214 10^3/uL (134-434); RBC 3.12 M/mm3 (4.00-5.60); RDW 13.3 % (11.9-15.9)
[2022-10-14 10:49] LABS: CALCIUM 8.9 mg/dL (8.5-10.1)
[2022-10-14 10:50] LABS: ALBUMIN 3.1 g/dl (3.4-5.0); BLOOD UREA NITROGEN 14.4 mg/dL (7-18)
[2022-10-14 10:53] LABS: CREATININE 0.9 mg/dL (0.55-1.3)
[2022-10-14 10:54] LABS: BILIRUBIN,TOTAL 0.2 mg/dL (0.2-1); TOT PROT 5.6 g/dl (6.4-8.2)
[2022-10-14] MEDS: THIAMINE HCL 100 MG TABLET (FP) PO SCH (23:28)
[2022-10-14] MEDS: MELATONIN 5 MG TABLETS PO PRN (23:28)
[2022-10-15] MEDS: METHOCARBAMOL 500 MG TABLET PO PRN (11:04)
[2022-10-15] MEDS: PRENATAL VITAMINS W/ FOLIC ACID TABLET (FP) PO SCH (11:04)
[2022-10-15 21:35] VITALS: PULSE 61
[2022-10-15] MEDS: THIAMINE HCL 100 MG TABLET (FP) PO SCH (22:39)
[2022-10-15] MEDS: MELATONIN 5 MG TABLETS PO PRN (22:39)
[2022-10-16] MEDS ORDERED: methaDONE HCL 10 MG TABLET (FOR DETOX USE ONLY) PO ONE (10:00)
[2022-10-16 10:28] VITALS: BP 117/62; RESP 18; TEMP 98.1
== END 2022-10-16 11:20 | disposition home or self-care (01) | DRG 773 ==
LOC: YASAS 13:01 → Y6N 17:01
PROVIDERS: ADMIT Allergy & Immunology; ATTEND Surgery
PROC: HZ2ZZZZ Detoxification Services for Substance Abuse Treatment (ICD-10-PCS; principal; 2022-10-13)
DX: F11.23 Opioid dependence with withdrawal (principal); F10.230 Alcohol dependence with withdrawal, uncomplicated; F14.20 Cocaine dependence, uncomplicated; F13.20 Sedative, hypnotic or anxiolytic dependence, uncomplicated; F17.210 Nicotine dependence, cigarettes, uncomplicated; F32.A Depression, unspecified; F43.10 Post-traumatic stress disorder, unspecified; D64.9 Anemia, unspecified; K21.9 Gastro-esophageal reflux disease without esophagitis
CPT/HCPCS: 36415; 80053; 85027; 86780; C9803-CS; U0003; U0005

== ENCOUNTER 2022-12-28 14:14 | Inpatient (IN) | payer OTHER ==
[2022-12-28 14:31] VITALS: BMI 18.3
[2022-12-28] MEDS ORDERED: BISMUTH SUBSALICYLATE 262 MG/15 ML BTL PO PRN (15:01)
[2022-12-28] MEDS ORDERED: LOPERAMIDE HCL 2 MG CAPSULE PO PRN (15:01)
[2022-12-28] MEDS ORDERED: BENZOCAINE/MENTHOL (CHLORASEPTIC ) LOZENGE MM PRN (15:01)
[2022-12-28] MEDS ORDERED: MAGNESIUM HYDROX 2400MG/30ML ORAL SUSPENSION 30 ML CUP PO PRN (15:01)
[2022-12-28] MEDS ORDERED: ONDANSETRON *ODT* 4 MG TABLET SL PRN (15:01)
[2022-12-28] MEDS ORDERED: cloNIDine HCL 0.1 MG TABLET PO PRN (15:01)
[2022-12-28] MEDS ORDERED: NALOXONE HCL 0.4 MG/ML VIAL IM PRN (15:01)
[2022-12-28] MEDS ORDERED: IBUPROFEN 400 MG TABLET (FP) PO PRN (15:01)
[2022-12-28] MEDS ORDERED: METHOCARBAMOL 500 MG TABLET PO PRN (15:01)
[2022-12-28] MEDS ORDERED: NICOTINE 10 MG CARTRIDGE (INHALER) IH PRN (15:01)
[2022-12-28] MEDS ORDERED: hydrOXYzine PAMOATE 25 MG CAPSULE (FP) PO PRN (15:01)
[2022-12-28] MEDS ORDERED: IBUPROFEN 600 MG TABLET (FP) PO PRN (15:01)
[2022-12-28] MEDS ORDERED: guaiFENesin 600 MG TABLET.ER (FP) PO PRN (15:01)
[2022-12-28] MEDS ORDERED: DICYCLOMINE HCL 10 MG CAPSULE PO PRN (15:01)
[2022-12-28] MEDS ORDERED: BENZONATATE 200 MG CAPSULE PO PRN (15:01)
[2022-12-28] MEDS ORDERED: MAG HYDROX/AL HYDROX/SIMETH 30 ML UNIT-DOSE CUP PO PRN (15:01)
[2022-12-28] MEDS ORDERED: ACETAMINOPHEN 325 MG TABLET (FP) PO PRN (15:01)
[2022-12-28] MEDS ORDERED: NALOXONE HCL (KLOXXADO) 8 MG SPRAY NS PRN (15:01)
[2022-12-28] MEDS ORDERED: POLYETHYLENE GLYCOL (HEALTHYLAX) 3350 17 GM PACKET PO PRN (15:01)
[2022-12-28] MEDS: PRENATAL VITAMINS W/ FOLIC ACID TABLET (FP) PO SCH (15:46)
[2022-12-28] MEDS: NICOTINE 14 MG/24 HOURS TOPICAL PATCH TD SCH (15:46)
[2022-12-28] MEDS ORDERED: methaDONE HCL 10 MG TABLET (FOR DETOX USE ONLY) PO ONE (17:00)
[2022-12-28] MEDS: MELATONIN 5 MG TABLETS PO SCH (22:23)
[2022-12-28] MEDS: THIAMINE HCL 100 MG TABLET (FP) PO SCH (22:23)
[2022-12-29] MEDS: PRENATAL VITAMINS W/ FOLIC ACID TABLET (FP) PO SCH (10:27)
[2022-12-29] MEDS: NICOTINE 14 MG/24 HOURS TOPICAL PATCH TD SCH (10:29)
[2022-12-29 12:13] LABS: CALCIUM 8.7 mg/dL (8.5-10.1)
[2022-12-29 12:14] LABS: ALBUMIN 3.3 g/dl (3.4-5.0)
[2022-12-29 12:17] LABS: CREATININE 0.7 mg/dL (0.55-1.3)
[2022-12-29 12:18] LABS: BILIRUBIN,TOTAL 0.6 mg/dL (0.2-1)
[2022-12-29 12:19] LABS: TOT PROT 6.4 g/dl (6.4-8.2)
[2022-12-29 12:47] LABS: HEMATOCRIT 36.7 % (35.4-49); HEMOGLOBIN 12.7 GM/dL (11.7-16.9); MCH 31.9 pg (25.7-33.7); MCHC 34.6 g/dl (32.0-35.9); MEAN CELL VOLUME 92.2 fl (80-96); MEAN PLT VOLUME 9.4 fl (7.5-11.1); PLATELET COUNT 248 10^3/uL (134-434); RBC 3.98 M/mm3 (4.00-5.60); RDW 13.4 % (11.9-15.9); WHITE BLOOD COUNT 10.3 K/mm3 (4.0-10.0)
[2022-12-29] MEDS: THIAMINE HCL 100 MG TABLET (FP) PO SCH (22:20)
[2022-12-29] MEDS: MELATONIN 5 MG TABLETS PO SCH (22:20)
[2022-12-30] MEDS ORDERED: methaDONE HCL 10 MG TABLET (FOR DETOX USE ONLY) PO ONE (10:00)
[2022-12-30] MEDS: PRENATAL VITAMINS W/ FOLIC ACID TABLET (FP) PO SCH (10:26)
[2022-12-30] MEDS: NICOTINE 14 MG/24 HOURS TOPICAL PATCH TD SCH (10:27)
[2022-12-30 13:30] VITALS: TEMP 97.3
[2022-12-30 17:37] VITALS: BP 124/76; PULSE 56; RESP 20
[2023-01-01] MEDS ORDERED: methaDONE HCL 10 MG TABLET (FOR DETOX USE ONLY) PO ONE (10:00)
== END 2022-12-30 18:13 | disposition left against medical advice (07) | DRG 770 ==
LOC: YASAS 14:14 → Y6N 14:49
PROVIDERS: ADMIT Allergy & Immunology; ATTEND Surgery
PROC: HZ2ZZZZ Detoxification Services for Substance Abuse Treatment (ICD-10-PCS; principal; 2022-12-28)
DX: F10.230 Alcohol dependence with withdrawal, uncomplicated (principal); F11.10 Opioid abuse, uncomplicated; F14.10 Cocaine abuse, uncomplicated; F12.20 Cannabis dependence, uncomplicated; F17.210 Nicotine dependence, cigarettes, uncomplicated; K21.9 Gastro-esophageal reflux disease without esophagitis; Z86.59 Personal history of other mental and behavioral disorders; Z59.00 Homelessness unspecified
CPT/HCPCS: 36415; 80053; 85027; 86780; C9803-CS; U0003; U0005

== ENCOUNTER 2023-02-07 18:55 | Inpatient (IN) | payer OTHER ==
[2023-02-07 19:20] VITALS: BMI 18.3
[2023-02-07] MEDS ORDERED: METHOCARBAMOL 500 MG TABLET PO PRN (19:45)
[2023-02-07] MEDS ORDERED: LOPERAMIDE HCL 2 MG CAPSULE PO PRN (19:45)
[2023-02-07] MEDS ORDERED: DICYCLOMINE HCL 10 MG CAPSULE PO PRN (19:45)
[2023-02-07] MEDS ORDERED: BENZOCAINE/MENTHOL (CHLORASEPTIC ) LOZENGE MM PRN (19:45)
[2023-02-07] MEDS ORDERED: NICOTINE POLACRILEX 2 MG GUM BUC PRN (19:45)
[2023-02-07] MEDS ORDERED: POLYETHYLENE GLYCOL (HEALTHYLAX) 3350 17 GM PACKET PO PRN (19:45)
[2023-02-07] MEDS ORDERED: NALOXONE HCL 0.4 MG/ML VIAL IM PRN (19:45)
[2023-02-07] MEDS ORDERED: BISMUTH SUBSALICYLATE 524 MG/30 ML PO PRN (19:45)
[2023-02-07] MEDS ORDERED: ONDANSETRON *ODT* 4 MG TABLET SL PRN (19:45)
[2023-02-07] MEDS ORDERED: guaiFENesin 600 MG TABLET.ER (FP) PO PRN (19:45)
[2023-02-07] MEDS ORDERED: NALOXONE HCL (KLOXXADO) 8 MG SPRAY NS PRN (19:45)
[2023-02-07] MEDS ORDERED: BENZONATATE 200 MG CAPSULE PO PRN (19:45)
[2023-02-07] MEDS ORDERED: IBUPROFEN 600 MG TABLET (FP) PO PRN (19:45)
[2023-02-07] MEDS ORDERED: MAGNESIUM HYDROX 2400MG/30ML ORAL SUSPENSION 30 ML CUP PO PRN (19:45)
[2023-02-07] MEDS ORDERED: IBUPROFEN 400 MG TABLET (FP) PO PRN (19:45)
[2023-02-07] MEDS ORDERED: MAG HYDROX/AL HYDROX/SIMETH 30 ML UNIT-DOSE CUP PO PRN (19:45)
[2023-02-07] MEDS ORDERED: ACETAMINOPHEN 325 MG TABLET (FP) PO PRN (19:45)
[2023-02-07] MEDS: THIAMINE HCL 100 MG TABLET (FP) PO SCH (22:47)
[2023-02-07] MEDS: MELATONIN 5 MG TABLETS PO SCH (22:47)
[2023-02-08] MEDS ORDERED: methaDONE HCL 10 MG TABLET (FOR DETOX USE ONLY) PO ONE (08:49)
[2023-02-08] MEDS ORDERED: cloNIDine HCL 0.1 MG TABLET PO PRN (08:49)
[2023-02-08] MEDS: NICOTINE 14 MG/24 HOURS TOPICAL PATCH TD SCH (10:03)
[2023-02-08] MEDS: PRENATAL VITAMINS W/ FOLIC ACID TABLET (FP) PO SCH (10:03)
[2023-02-08 10:50] LABS: HEMATOCRIT 35.1 % (35.4-49); HEMOGLOBIN 12.2 GM/dL (11.7-16.9); MCH 32.3 pg (25.7-33.7); MCHC 34.8 g/dl (32.0-35.9); MEAN CELL VOLUME 92.9 fl (80-96); MEAN PLT VOLUME 8.7 fl (7.5-11.1); PLATELET COUNT 249 10^3/uL (134-434); RBC 3.78 M/mm3 (4.00-5.60); RDW 13.8 % (11.9-15.9); WHITE BLOOD COUNT 6.2 K/mm3 (4.0-10.0)
[2023-02-08 10:55] LABS: POTASSIUM 3.5 mmol/L (3.5-5.1)
[2023-02-08 10:59] LABS: CALCIUM 8.4 mg/dL (8.5-10.1)
[2023-02-08 11:01] LABS: ALBUMIN 3.4 g/dl (3.4-5.0); BILIRUBIN,TOTAL 0.6 mg/dL (0.2-1); BLOOD UREA NITROGEN 15.1 mg/dL (7-18)
[2023-02-08 11:03] LABS: CREATININE 0.7 mg/dL (0.55-1.3)
[2023-02-08] MEDS: MELATONIN 5 MG TABLETS PO SCH (22:06)
[2023-02-08] MEDS: diazePAM 5 MG TABLET PO PRN (22:06)
[2023-02-08] MEDS: THIAMINE HCL 100 MG TABLET (FP) PO SCH (22:06)
[2023-02-09] MEDS: NICOTINE 14 MG/24 HOURS TOPICAL PATCH TD SCH (10:08)
[2023-02-09] MEDS: PRENATAL VITAMINS W/ FOLIC ACID TABLET (FP) PO SCH (10:08)
[2023-02-09] MEDS: THIAMINE HCL 100 MG TABLET (FP) PO SCH (22:03)
[2023-02-09] MEDS: diazePAM 5 MG TABLET PO PRN (22:03)
[2023-02-09] MEDS: MELATONIN 5 MG TABLETS PO SCH (22:04)
[2023-02-10] MEDS ORDERED: methaDONE HCL 10 MG TABLET (FOR DETOX USE ONLY) PO ONE (10:00)
[2023-02-10] MEDS: PRENATAL VITAMINS W/ FOLIC ACID TABLET (FP) PO SCH (10:15)
[2023-02-10] MEDS: NICOTINE 14 MG/24 HOURS TOPICAL PATCH TD SCH (10:16)
[2023-02-10] MEDS: diazePAM 5 MG TABLET PO PRN (22:04)
[2023-02-10] MEDS: THIAMINE HCL 100 MG TABLET (FP) PO SCH (22:04)
[2023-02-10] MEDS: MELATONIN 5 MG TABLETS PO SCH (22:05)
[2023-02-11] MEDS: PRENATAL VITAMINS W/ FOLIC ACID TABLET (FP) PO SCH (10:06)
[2023-02-11] MEDS: NICOTINE 14 MG/24 HOURS TOPICAL PATCH TD SCH (10:07)
[2023-02-11] MEDS ORDERED: hydrOXYzine PAMOATE 25 MG CAPSULE (FP) PO PRN (17:17)
[2023-02-11] MEDS: THIAMINE HCL 100 MG TABLET (FP) PO SCH (22:05)
[2023-02-11] MEDS: MELATONIN 5 MG TABLETS PO SCH (22:05)
[2023-02-12 09:17] VITALS: BP 121/61; PULSE 82; RESP 18; TEMP 97.1
[2023-02-12] MEDS ORDERED: methaDONE HCL 10 MG TABLET (FOR DETOX USE ONLY) PO ONE (10:00)
[2023-02-12] MEDS: PRENATAL VITAMINS W/ FOLIC ACID TABLET (FP) PO SCH (10:05)
[2023-02-12] MEDS: NICOTINE 14 MG/24 HOURS TOPICAL PATCH TD SCH (10:06)
== END 2023-02-12 11:16 | disposition home or self-care (01) | DRG 773 ==
LOC: YASAS 18:55 → Y6N 21:07
PROVIDERS: ADMIT Allergy & Immunology; ATTEND Allergy & Immunology
PROC: HZ2ZZZZ Detoxification Services for Substance Abuse Treatment (ICD-10-PCS; principal; 2023-02-07)
DX: F11.23 Opioid dependence with withdrawal (principal); F10.230 Alcohol dependence with withdrawal, uncomplicated; F14.20 Cocaine dependence, uncomplicated; F17.210 Nicotine dependence, cigarettes, uncomplicated; F19.24 Other psychoactive substance dependence with psychoactive substance-induced mood disorder; F41.8 Other specified anxiety disorders; D50.9 Iron deficiency anemia, unspecified; K21.9 Gastro-esophageal reflux disease without esophagitis
CPT/HCPCS: 36415; 80053; 82310; 85027; 86780; C9803-CS; U0003; U0005